=== PATIENT | female | born 1935 | race Caucasian/White ===

== ENCOUNTER → 2017-01-11 | Outpatient (REF) | payer MEDICARE, OTHER ==
[~2017-01-11] MED LIST: /GLIM4TA OR; ASCO25TA PO; AVAP150T OR; COLA100C PO; COLA100C2 OR; COZA50TA PO; FENO160T10 PO; FLON0.054; GLIM2TA PO; GLIM4TAB PO; GLUC1000 OR; GLUC1000 PO; I-CAPS PO; ICAP; JANU100T PO; KEFL250C6 PO; LIPI20TA PO; LOSA50TA20 PO; METF500T4 OR; NIAS500T2 OR; TRIC145T19 OR; VIT D 2000; VITA500046 PO; XARE20TA PO; januvia
[2017-01-11 13:13] LABS: ALBUMIN 4.5 GM/DL (3.2-5.2); ALBUMIN/GLOBULIN RATIO 1.13 (1.00-1.93); ALKALINE PHOSPHATASE 63 U/L (45-117); ALT/SGPT 37 U/L (12-78); ANION GAP 11 MEQ/L (8-16); AST/SGOT 41 U/L (15-37); BILIRUBIN,TOTAL 0.7 MG/DL (0.2-1.0); BLOOD UREA NITROGEN 13 MG/DL (7-18); CALCIUM LEVEL 9.4 MG/DL (8.8-10.2); CARBON DIOXIDE LEVEL 28 MEQ/L (21-32); CHLORIDE LEVEL 100 MEQ/L (98-107); CHOLESTEROL LEVEL 117 MG/DL (<200); FERRITIN 36 NG/ML (8-252); GLOMERULAR FILTRATION RATE > 60.0 (>32); GLUCOSE, FASTING 125 MG/DL (83-110); POTASSIUM SERUM 4.2 MEQ/L (3.5-5.1); SODIUM LEVEL 139 MEQ/L (136-145); TOTAL PROTEIN 8.5 GM/DL (6.4-8.2); TRIGLYCERIDES LEVEL 213 MG/DL (<150)
[2017-01-11 13:21] LABS: MEAN CORPUSCULAR HEMOGLOBIN 30.6 pg (27.0-33.0); MEAN CORPUSCULAR HGB CONC 33.3 g/dl (32.0-36.5); MEAN CORPUSCULAR VOLUME 91.7 fl (80.0-96.0); RED CELL DISTRIBUTION WIDTH 13.9 % (11.5-14.5); WHITE BLOOD COUNT 5.6 K/mm3 (4.0-10.0)
== END ==
LOC: M SFHCPLAZ 09:41
PROVIDERS: ATTEND Nurse Practitioner Family
DX: E53.8 Deficiency of other specified B group vitamins (principal); I10 Essential (primary) hypertension; D50.9 Iron deficiency anemia, unspecified; E11.9 Type 2 diabetes mellitus without complications; E78.2 Mixed hyperlipidemia; E55.9 Vitamin D deficiency, unspecified

== ENCOUNTER → 2017-07-18 | Outpatient (REF) | payer MEDICARE, OTHER ==
[~2017-07-18] MED LIST changes: -COLA100C PO; +COLA100C5 PO; +KEFL250C11 PO; -KEFL250C6 PO
[2017-07-18 13:57] LABS: ALBUMIN 3.9 GM/DL (3.2-5.2); ALBUMIN/GLOBULIN RATIO 1.08 (1.00-1.93); ALKALINE PHOSPHATASE 63 U/L (45-117); ALT/SGPT 38 U/L (12-78); ANION GAP 11 MEQ/L (8-16); AST/SGOT 42 U/L (15-37); BILIRUBIN,TOTAL 0.9 MG/DL (0.2-1.0); BLOOD UREA NITROGEN 16 MG/DL (7-18); CALCIUM LEVEL 9.4 MG/DL (8.8-10.2); CARBON DIOXIDE LEVEL 27 MEQ/L (21-32); CHLORIDE LEVEL 103 MEQ/L (98-107); GLOMERULAR FILTRATION RATE > 60.0 (>32); GLUCOSE, FASTING 157 MG/DL (83-110); POTASSIUM SERUM 4.6 MEQ/L (3.5-5.1); SODIUM LEVEL 141 MEQ/L (136-145); TOTAL PROTEIN 7.5 GM/DL (6.4-8.2)
== END ==
LOC: M SFHCPLAZ 08:44
PROVIDERS: ATTEND Nurse Practitioner Family
DX: E55.9 Vitamin D deficiency, unspecified (principal); I10 Essential (primary) hypertension; E11.9 Type 2 diabetes mellitus without complications

== ENCOUNTER → 2017-07-25 | Outpatient (REF) | payer MEDICARE, OTHER ==
[2017-07-25 13:10] LABS: MEAN CORPUSCULAR HEMOGLOBIN 31.1 pg (27.0-33.0); MEAN CORPUSCULAR HGB CONC 33.9 g/dl (32.0-36.5); MEAN CORPUSCULAR VOLUME 91.8 fl (80.0-96.0); RED CELL DISTRIBUTION WIDTH 13.8 % (11.5-14.5); WHITE BLOOD COUNT 7.1 10^3/uL (4.0-10.0)
[2017-07-25 13:14] LABS: PLATELET COUNT, AUTOMATED 96 10^3/uL (150-450)
[2017-08-08 13:12] LABS: IMMATURE PLATELET FRACTION % 7.9 % (0.0-9.6)
== END ==
LOC: M SFHCPLAZ 11:46
PROVIDERS: ATTEND Nurse Practitioner Family
DX: R31.0 Gross hematuria (principal); I10 Essential (primary) hypertension; E11.9 Type 2 diabetes mellitus without complications; F32.89 Other specified depressive episodes; E53.8 Deficiency of other specified B group vitamins; E78.2 Mixed hyperlipidemia; E55.9 Vitamin D deficiency, unspecified; D50.9 Iron deficiency anemia, unspecified; M15.9 Polyosteoarthritis, unspecified; I69.30 Unspecified sequelae of cerebral infarction; I48.0 Paroxysmal atrial fibrillation; Z79.4 Long term (current) use of insulin; Z79.899 Other long term (current) drug therapy
CPT/HCPCS: 81001; 82728; 85027; 85055; 87088; 87186; 96372; G0463; J3420

== ENCOUNTER → 2017-09-25 | Outpatient (REF) | payer MEDICARE, OTHER ==
[2017-09-25 13:36] LABS: BASO % 0.3 % (0.0-1.0); EOS # 0.1 10^3/uL (0.0-0.50); EOS % 1.7 % (0.0-3.0); IMMATURE GRANULOCYTE % 0.3 % (0-0); LYMPH # 1.4 10^3/uL (1.5-4.5); LYMPH % 21.8 % (24.0-44.0); MEAN CORPUSCULAR HEMOGLOBIN 30.9 pg (27.0-33.0); MEAN CORPUSCULAR HGB CONC 33.5 g/dl (32.0-36.5); MEAN CORPUSCULAR VOLUME 92.4 fl (80.0-96.0); MONO # 0.9 10^3/uL (0.0-0.8); NEUTROPHILS % 61.9 % (36.0-66.0); RED CELL DISTRIBUTION WIDTH 14.2 % (11.5-14.5); WHITE BLOOD COUNT 6.4 10^3/uL (4.0-10.0)
[2017-09-25 13:39] LABS: IMMATURE PLATELET FRACTION % 7.8 % (0.0-9.6); PLATELET COUNT, AUTOMATED 85 10^3/uL (150-450)
[2017-09-25 13:51] LABS: ANION GAP 10 MEQ/L (8-16); BLOOD UREA NITROGEN 10 MG/DL (7-18); CALCIUM LEVEL 9.3 MG/DL (8.8-10.2); CARBON DIOXIDE LEVEL 29 MEQ/L (21-32); CHLORIDE LEVEL 101 MEQ/L (98-107); CREATININE FOR GFR 0.67 MG/DL (0.55-1.02); GLOMERULAR FILTRATION RATE > 60.0 (>32); GLUCOSE, FASTING 168 MG/DL (83-110); POTASSIUM SERUM 4.2 MEQ/L (3.5-5.1); SODIUM LEVEL 140 MEQ/L (136-145)
== END ==
LOC: M SFHCPLAZ 10:33
PROVIDERS: ATTEND Nurse Practitioner Family
DX: J06.9 Acute upper respiratory infection, unspecified (principal); R35.0 Frequency of micturition
CPT/HCPCS: 80048; 81001; 85025; 85049; 85055; 87088; 87186; 96372; G0463; J3420

== ENCOUNTER → 2018-01-07 | Outpatient (REF) | payer MEDICARE, OTHER ==
[2018-01-07 12:08] LABS: ANION GAP 13 MEQ/L (8-16); BLOOD UREA NITROGEN 17 MG/DL (7-18); CALCIUM LEVEL 9.1 MG/DL (8.8-10.2); CARBON DIOXIDE LEVEL 25 MEQ/L (21-32); CHLORIDE LEVEL 102 MEQ/L (98-107); CREATININE FOR GFR 0.81 MG/DL (0.55-1.30); GLOMERULAR FILTRATION RATE > 60.0 (>32); GLUCOSE, FASTING 161 MG/DL (70-100); POTASSIUM SERUM 4.4 MEQ/L (3.5-5.1); SODIUM LEVEL 140 MEQ/L (136-145)
[2018-01-07 12:09] LABS: ALBUMIN 3.9 GM/DL (3.2-5.2); ALBUMIN/GLOBULIN RATIO 1.03 (1.00-1.93); ALKALINE PHOSPHATASE 62 U/L (45-117); ALT/SGPT 31 U/L (12-78); AST/SGOT 31 U/L (7-37); BILIRUBIN,TOTAL 0.7 MG/DL (0.2-1.0); CHOLESTEROL LEVEL 102 MG/DL (<200); CHOLESTEROL RISK RATIO 1.924 (<5); HDL CHOLESTEROL 53 MG/DL (>40); LDL CHOLESTEROL 17.2 MG/DL (<100); NON-HDL-C 49 MG/DL; TOTAL PROTEIN 7.7 GM/DL (6.4-8.2); TRIGLYCERIDES LEVEL 159 MG/DL (<150)
[2018-01-07 12:21] LABS: ESTIMATED AVERAGE GLUCOSE 148 MG/DL (60-110); HEMOGLOBIN A1c 6.8 %
[2018-01-07 12:46] LABS: TOTAL 25(OH) VITAMIN D 35.8 NG/ML (30.0-100.0)
[2018-01-07 12:59] LABS: MALB URINE SIEMENS 70.2 MG/L; MAU/CREAT RATIO 93.6 MCG/MG (0.0-30.0)
== END ==
LOC: M SFHCPLAZ 08:48
DX: E11.9 Type 2 diabetes mellitus without complications (principal); E78.2 Mixed hyperlipidemia; E55.9 Vitamin D deficiency, unspecified
CPT/HCPCS: 80053

== ENCOUNTER → 2018-03-05 | Outpatient (REF) | payer MEDICARE, OTHER | LOC: M SFHCPLAZ 15:42 | DX: R31.9 Hematuria, unspecified (principal) | CPT/HCPCS: 87088; 87186 ==

== ENCOUNTER → 2018-05-14 | Outpatient (REF) | payer MEDICARE, BC ==
[2018-05-14 11:58] LABS: HEMATOCRIT 37.2 % (36.0-47.0); HEMOGLOBIN 12.6 g/dl (12.0-15.5); MEAN CORPUSCULAR HEMOGLOBIN 31.2 pg (27.0-33.0); MEAN CORPUSCULAR HGB CONC 33.9 g/dl (32.0-36.5); MEAN CORPUSCULAR VOLUME 92.1 fl (80.0-96.0); RED BLOOD COUNT 4.04 10^6/uL (4.00-5.40); RED CELL DISTRIBUTION WIDTH 14.2 % (11.5-14.5); WHITE BLOOD COUNT 4.6 10^3/uL (4.0-10.0)
[2018-05-14 12:00] LABS: PLATELET COUNT, AUTOMATED 86 10^3/uL (150-450)
[2018-05-14 12:01] LABS: IMMATURE PLATELET FRACTION % 7.7 % (0.0-9.6)
[2018-05-14 12:24] LABS: ALBUMIN 3.8 GM/DL (3.2-5.2); ALBUMIN/GLOBULIN RATIO 0.97 (1.00-1.93); ALKALINE PHOSPHATASE 59 U/L (45-117); ALT/SGPT 33 U/L (12-78); ANION GAP 9 MEQ/L (8-16); AST/SGOT 38 U/L (7-37); BILIRUBIN,TOTAL 0.7 MG/DL (0.2-1.0); BLOOD UREA NITROGEN 15 MG/DL (7-18); CALCIUM LEVEL 8.9 MG/DL (8.8-10.2); CARBON DIOXIDE LEVEL 26 MEQ/L (21-32); CHLORIDE LEVEL 105 MEQ/L (98-107); CHOLESTEROL LEVEL 96 MG/DL (<200); CHOLESTEROL RISK RATIO 2.042 (<5); CREATININE FOR GFR 0.73 MG/DL (0.55-1.30); GLOMERULAR FILTRATION RATE > 60.0 (>32); GLUCOSE, FASTING 189 MG/DL (70-100); HDL CHOLESTEROL 47 MG/DL (>40); LDL CHOLESTEROL 19.4 MG/DL (<100); NON-HDL-C 49 MG/DL; POTASSIUM SERUM 4.6 MEQ/L (3.5-5.1); SODIUM LEVEL 140 MEQ/L (136-145); TOTAL PROTEIN 7.7 GM/DL (6.4-8.2); TRIGLYCERIDES LEVEL 148 MG/DL (<150)
[2018-05-14 12:59] LABS: FOLATE 12.5 NG/ML; VITAMIN B12 LEVEL 495 PG/ML
[2018-05-14 13:26] LABS: ESTIMATED AVERAGE GLUCOSE 160 MG/DL (60-110); HEMOGLOBIN A1c 7.2 %
[2018-05-14 18:05] LABS: CREATININE, URINE 70.9 MG/DL; MALB URINE SIEMENS 73.9 MG/L; MAU/CREAT RATIO 104.2 MCG/MG (0.0-30.0)
== END ==
LOC: M SFHCPLAZ 09:36
DX: E53.8 Deficiency of other specified B group vitamins (principal); E11.9 Type 2 diabetes mellitus without complications; E78.2 Mixed hyperlipidemia
CPT/HCPCS: 82746

== ENCOUNTER → 2018-06-12 | Outpatient (REF) | payer MEDICARE, OTHER ==
[2018-06-12 12:03] LABS: HEMATOCRIT 41.8 % (36.0-47.0); HEMOGLOBIN 13.7 g/dl (12.0-15.5); MEAN CORPUSCULAR HEMOGLOBIN 30.8 pg (27.0-33.0); MEAN CORPUSCULAR HGB CONC 32.8 g/dl (32.0-36.5); MEAN CORPUSCULAR VOLUME 93.9 fl (80.0-96.0); RED BLOOD COUNT 4.45 10^6/uL (4.00-5.40); RED CELL DISTRIBUTION WIDTH 13.7 % (11.5-14.5); WHITE BLOOD COUNT 4.9 10^3/uL (4.0-10.0)
[2018-06-12 12:10] LABS: PLATELET COUNT, AUTOMATED 75 10^3/uL (150-450)
[2018-06-12 13:31] LABS: IMMATURE PLATELET FRACTION % 6.9 % (0.0-9.6)
== END ==
LOC: M SFHCPLAZ 09:39
DX: D69.6 Thrombocytopenia, unspecified (principal)
CPT/HCPCS: 85049

== ENCOUNTER → 2018-08-13 | Outpatient (REF) | payer MEDICARE, OTHER ==
[2018-08-13 11:45] LABS: HEMATOCRIT 42.1 % (36.0-47.0); HEMOGLOBIN 13.7 g/dl (12.0-15.5); MEAN CORPUSCULAR HEMOGLOBIN 30.2 pg (27.0-33.0); MEAN CORPUSCULAR HGB CONC 32.5 g/dl (32.0-36.5); MEAN CORPUSCULAR VOLUME 92.9 fl (80.0-96.0); RED BLOOD COUNT 4.53 10^6/uL (4.00-5.40); RED CELL DISTRIBUTION WIDTH 14.2 % (11.5-14.5); WHITE BLOOD COUNT 4.7 10^3/uL (4.0-10.0)
[2018-08-13 11:48] LABS: PLATELET COUNT, AUTOMATED 78 10^3/uL (150-450)
[2018-08-13 11:50] LABS: IMMATURE PLATELET FRACTION % 8.5 % (0.0-9.6)
[2018-08-13 12:03] LABS: ESTIMATED AVERAGE GLUCOSE 148 MG/DL (60-110); HEMOGLOBIN A1c 6.8 %
[2018-08-13 12:10] LABS: ALBUMIN 3.9 GM/DL (3.2-5.2); ALBUMIN/GLOBULIN RATIO 1.05 (1.00-1.93); ALKALINE PHOSPHATASE 56 U/L (45-117); ALT/SGPT 29 U/L (12-78); ANION GAP 11 MEQ/L (8-16); AST/SGOT 36 U/L (7-37); BLOOD UREA NITROGEN 14 MG/DL (7-18); CALCIUM LEVEL 8.9 MG/DL (8.8-10.2); CARBON DIOXIDE LEVEL 26 MEQ/L (21-32); CHLORIDE LEVEL 104 MEQ/L (98-107); CREATININE FOR GFR 0.71 MG/DL (0.55-1.30); GLOMERULAR FILTRATION RATE > 60.0 (>32); GLUCOSE, FASTING 148 MG/DL (70-100); POTASSIUM SERUM 4.8 MEQ/L (3.5-5.1); SODIUM LEVEL 141 MEQ/L (136-145); TOTAL PROTEIN 7.6 GM/DL (6.4-8.2)
== END ==
LOC: M SFHCPLAZ 09:49
DX: D69.6 Thrombocytopenia, unspecified (principal); E11.9 Type 2 diabetes mellitus without complications
CPT/HCPCS: 80053

== ENCOUNTER → 2019-02-20 | Outpatient (REF) | payer MEDICARE, OTHER ==
[~2019-02-20] MED LIST changes: -/GLIM4TA OR; +AMAR1TAB6 OR; -ASCO25TA PO; +ATOR1TAB19 PO; +FERR325T3 PO; -GLIM2TA PO; +GLIM2TAB29 PO; +ICAPTAB PO; +LEVE1INJ5 SUBQ; -LOSA50TA20 PO; +LOSA50TA88 PO; +SERT-141 PO; +VITA100066 PO; +VITA1TAB23 PO
[2019-02-20 14:35] LABS: HEMATOCRIT 41.7 % (36.0-47.0); HEMOGLOBIN 13.5 g/dl (12.0-15.5); MEAN CORPUSCULAR HGB CONC 32.4 g/dl (32.0-36.5); MEAN CORPUSCULAR VOLUME 95.9 fl (80.0-96.0); RED BLOOD COUNT 4.35 10^6/uL (4.00-5.40); WHITE BLOOD COUNT 4.3 10^3/uL (4.0-10.0)
[2019-02-20 14:41] LABS: ALBUMIN 3.8 GM/DL (3.2-5.2); ALT/SGPT 28 U/L (12-78); BILIRUBIN,TOTAL 0.8 MG/DL (0.2-1.0); BLOOD UREA NITROGEN 19 MG/DL (7-18); CALCIUM LEVEL 9.1 MG/DL (8.8-10.2); CARBON DIOXIDE LEVEL 27 MEQ/L (21-32); CHLORIDE LEVEL 105 MEQ/L (98-107); CREATININE FOR GFR 0.72 MG/DL (0.55-1.30); GLOMERULAR FILTRATION RATE > 60.0 (>32); GLUCOSE, FASTING 131 MG/DL (70-100); POTASSIUM SERUM 4.5 MEQ/L (3.5-5.1); SODIUM LEVEL 140 MEQ/L (136-145); TOTAL PROTEIN 7.7 GM/DL (6.4-8.2)
[2019-02-20 14:48] LABS: CREATININE, URINE 64.1 MG/DL; MALB URINE SIEMENS 70.4 MG/L; MAU/CREAT RATIO 109.8 MCG/MG (0.0-30.0); TOTAL 25(OH) VITAMIN D 49.9 NG/ML (30.0-100.0); VITAMIN B12 LEVEL 373 PG/ML
[2019-02-20 14:51] LABS: HEMOGLOBIN A1c 6.5 %
[2019-02-20 15:35] LABS: PLATELET COUNT, AUTOMATED 69 10^3/uL (150-450)
== END ==
LOC: M SFHCPLAZ 08:37
PROVIDERS: ATTEND Nurse Practitioner Family
DX: I48.0 Paroxysmal atrial fibrillation (principal); E11.9 Type 2 diabetes mellitus without complications; M15.9 Polyosteoarthritis, unspecified; E53.8 Deficiency of other specified B group vitamins

== ENCOUNTER 2019-05-15 08:43 | Inpatient (IN) | payer MEDICARE, BC, OTHER ==
[~2019-05-15] VITALS: Ht 167.6 cm; Wt 73.7 kg
[~2019-05-15 08:43] MED LIST changes: -GLIM4TAB PO; +GLIM4TAB5 PO; +LEVE1INJ5 SQ; -LEVE1INJ5 SUBQ
[2019-05-15] MEDS ORDERED: NS 1,000 ML IV SCH ×2 (09:18→12:49)
[2019-05-15] MEDS ORDERED: IPRATROPIUM 0.5MG/ALBUTEROL 2.5MG INH SOL UD 3ML (DUONEB)(J7620) NEB ONE (09:30)
[2019-05-15 10:00] LABS: BASO % 0.2 % (0.0-1.0); EOS % 0.4 % (0.0-3.0); HEMATOCRIT 18.6 % (36.0-47.0); LYMPH # 1.2 10^3/uL (1.5-4.5); LYMPH % 11.4 % (24.0-44.0); MEAN CORPUSCULAR HGB CONC 33.3 g/dl (32.0-36.5); MEAN CORPUSCULAR VOLUME 95.9 fl (80.0-96.0); MONO # 0.8 10^3/uL (0.0-0.8); MONO % 7.3 % (0.0-5.0); NEUTROPHILS # 8.7 10^3/uL (1.8-7.7); NEUTROPHILS % 79.4 % (36.0-66.0); PLATELET COUNT, AUTOMATED 144 10^3/uL (150-450); RED BLOOD COUNT 1.94 10^6/uL (4.00-5.40); WHITE BLOOD COUNT 10.9 10^3/uL (4.0-10.0)
[2019-05-15 10:02] LABS: HEMOGLOBIN 6.2 g/dl (12.0-15.5)
[2019-05-15 10:08] LABS: INR 1.74; PROTHROMBIN TIME 20.1 SECONDS (11.8-14.0)
[2019-05-15 10:39] LABS: ALBUMIN 2.8 GM/DL (3.2-5.2); ALT/SGPT 15 U/L (12-78); BILIRUBIN,DIRECT 0.3 MG/DL (0.0-0.2); BILIRUBIN,TOTAL 0.7 MG/DL (0.2-1.0); BLOOD UREA NITROGEN 56 MG/DL (7-18); CALCIUM LEVEL 8.6 MG/DL (8.8-10.2); CARBON DIOXIDE LEVEL 22 MEQ/L (21-32); CHLORIDE LEVEL 104 MEQ/L (98-107); CK-MB VALUE MASS 1.8 NG/ML (<3.6); CPK CREATINE PHOSPHOKINASE 39 U/L (26-192); GLOMERULAR FILTRATION RATE > 60.0 (>32); GLUCOSE, FASTING 230 MG/DL (70-100); MB/CK RELATIVE INDEX 4.62 (< OR =4); NT-PRO BNP 152 PG/ML (<450); POTASSIUM SERUM 4.3 MEQ/L (3.5-5.1); SODIUM LEVEL 136 MEQ/L (136-145); THYROXINE (T4) 8.9 UG/DL (4.5-12.0); TOTAL PROTEIN 6.4 GM/DL (6.4-8.2); TROPONIN I < 0.02 NG/ML (< 0.10)
--- NOTE | 2019-05-15 10:46 | REP ---
CHEST X-RAY: Two views. HISTORY: Dyspnea and cough. COMPARISON STUDY: April 17, 2014. FINDINGS: A bipolar pacemaker is again seen in place. Heart size is normal. Lungs are symmetrically aerated. Pleural angles are sharp. There is fissural thickening in the minor fissure on the right mild in degree. No free pleural effusion is seen. There are degenerative changes in the thoracic spine. IMPRESSION: No infiltrate seen. Pacemaker in place. The heart size is normal. Electronically Signed by Jelani Martinez MD 05/15/2019 07:19 P
[2019-05-15] MEDS: PANTOPRAZOLE SODIUM 40 MG in D5W 50 ML IV SCH ×3 (12:35→20:58)
[2019-05-15] MEDS ORDERED: METF10004 PO (12:55)
[2019-05-15] MEDS ORDERED: ACET25TA12 PO (12:57)
[2019-05-15] MEDS ORDERED: CYAN1000VL IM (12:57)
[2019-05-15] MEDS ORDERED: FUROSEMIDE 20 MG/2 ML VIAL (J1940) IV ONE (13:00)
[2019-05-15] MEDS ORDERED: DEXTROSE 50% 50 ML SYRINGE IV PRN (13:00)
[2019-05-15] MEDS ORDERED: GLUCAGON FOR INJ 1 MG VIAL (J1610) SC PRN (13:00)
[2019-05-15] MEDS ORDERED: GLUCOSE 4 GM CHEW TABLET PO PRN (13:00)
[2019-05-15] MEDS ORDERED: PANTOPRAZOLE 40MG INJ (PROTONIX) (C9113) IV ONE (13:00)
[2019-05-15 15:50] VITALS: BP 150/65
--- NOTE | 2019-05-15 15:59 | HPEPDOC ---
[facility] Medical History & Physical Date of Admission May 15, 2019 Date of Service: May 15, 2019 Attending Physician: NATANAEL SWANSON MD History and Physical CHIEF COMPLAINT: Generalized weakness and fatigue HISTORY OF PRESENT ILLNESS: An 83 year old white female with a past medical history of hypertension, atrial fibrillation, dyslipidemia, type 2 diabetes, iron deficiency anemia, stroke, thrombocytopenia, carcinoid tumor of bowel, diverticulitis, and sick sinus syndrome presented to the Emergency department with generalized weakness and fatigue. The patient is accompanied by her two daughters who aid in giving a thorough history. Patient states that she began experiencing upper respiratory symptoms on 05/12/19. Her symptoms consisted of productive cough, post nasal drainage, generalized fatigue, vomiting, nausea, dizziness, and weakness. She denies having a fever or chills during this time. She presented to an urgent care clinic on 05/13/19 and was told that her lung bar were clear; they instructed her to buy cepacol cough drops to help with her cough. The patient progressively felt more fatigue and weakness over the next two days to the point where she felt she needed to visit the Emergency department. Her daughters stated that she began looking severely pale two days ago and has lost 6 lbs since 05/12/19. Her daughters also stated that she is usually a very active 83 year old and has been considerably less active over the last four days. The patient states that she has not had much of an appetite but has been drinking fluids on a regular basis. She denies bright red blood per re ctum; her stool is usually dark and she attributes this to taking an iron supplement. She denies fevers, chills, hematuria, hemoptysis, hematemesis, or syncope. PAST MEDICAL HISTORY: 1. Hypertension 2. Atrial fibrillation on anticoagulation 3. Dyslipidemia 4. Diabetes type 2 5. Iron deficiency anemia 6. Sick sinus syndrome s/p pacemaker 7. Stroke 8. thrombocytopenia 9. Carcinoid tumor of bowel 10. 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 Cholecystectomy 2. Bladder Repair 3. Carcinoid tumor of bowel 4. Cataract surgery 5. Pacemaker implantation 6. Hysterectomy 7. Bowel resection 8. Hernia repair 9.Ovarian cyst removal SOCIAL HISTORY: Marital status: not known Resides in: [place] Children: three daughters Employment: retired Tobacco use: admits to past use ETOH: denies use Illicit drug use: denies use FAMILY HISTORY: Hypertension and diabetes Unexpected deaths due to medical reasons: not known ALLERGIES: Please see below. HOME MEDICATIONS: Please see below. PHYSICAL EXAMINATION: VITAL SIGNS: See below GENERAL APPEARANCE: Patient is lying in bed. She appears tired and is pale in coloration. HEENT: Conjunctival pallor noted. Mucous membranes pale and dry. CARDIOVASCULAR: Regular rate and rhythm. A systolic murmur is heard in the left 2nd ICS. LUNGS: equal air intake b/l. Patient has slight basilar crackles heard in lower lung bar. ABDOMEN: soft, non tender, normal bowel sounds EXTREMITIES: No edema, rashes, or cyanosis. Capillary refill 5 seconds, pulses 2+ throughout NEUROLOGICAL: no focal deficits PSYCHIATRIC: normal affect LABORATORY DATA: See below. IMAGING: Chest X-ray 05/15/19: A bipolar pacemaker is again seen in place. Heart size is normal. Lungs are symmetrically aerated. Pleural angles are sharp. There is fissural thickening in the minor fissure on the right mild in degree. No free pleural effusion is seen. There are degenerative changes in the thoracic spine. No infiltrate seen. Pacemaker in place. The heart size is normal. MICROBIOLOGY: Please see below. ASSESSMENT: An 83 year old white female with a past medical history of hypertension, atrial fibrillation, dyslipidemia, diabetes, iron deficiency anemia, stroke, thrombocytopenia, carcinoid tumor of bowel, diverticulitis, and sick sinus syndrome. PLAN: 1. Acute Blood loss anemia due to GIB. -Patient on Clear liquid diet -EGD scheduled for tomorrow -Patient received two units of blood -Monitor H&H every 6 hours and transfuse as needed -1 unit of lasix given in between blood transfusions -Consulted GI, we appreciate their input -Holding Xarelto -Begin pantoprazole -Guaiac test positive 2. Mild lactic acidosis -due to anemia and tissue hypoperfusion -Initial lactic acidosis measured 3.8. Four hour followup measurement was 2.9. -c/w IV fluids and monitor for fluid overload 3. Diabetes -hold all oral medications and home insulin -ISS 4. Hyperlipidemia -Holding atorvastatin -restart atorvastatin when able to take PO medications 5. Afib with h/o sick sinus syndrome with pacemaker in place -holding xarelto 6. Hypertension -holding losartan -restart when able to take PO medications 7. DVT prophylaxis -TEDs and sequentials Vital Signs Vital Signs Date Time Temp Pulse Resp B/P (MAP) Pulse Ox O2 Delivery O2 Flow Rate FiO2 05/15/19 15:15 110 133/62 (85) 97 05/15/19 13:57 99.3 17 05/15/19 08:43 Room Air Laboratory Data Labs 24H Laboratory Tests 2 05/15/19 09:42: Prothrombin Time 20.1H, Prothromb Time International Ratio 1.74 05/15/19 09:43: Immature Granulocyte % (Auto) 1.3, White Blood Count 10.9H, Red Blood Count 1.94L, Hemoglobin 6.2*L, Hematocrit 18.6L, Mean Corpuscular Volume 95.9, Mean Corpuscular Hemoglobin 32.0, Mean Corpuscular Hemoglobin Concent 33.3, Red Cell Distribution Width 14.6H, Platelet Count 144L, Neutrophils (%) (Auto) 79.4H, Ly mphocytes (%) (Auto) 11.4L, Monocytes (%) (Auto) 7.3H, Eosinophils (%) (Auto) 0.4, Basophils (%) (Auto) 0.2, Neutrophils # (Auto) 8.7H, Lymphocytes # (Auto) 1.2L, Monocytes # (Auto) 0.8, Eosinophils # (Auto) 0.0, Basophils # (Auto) 0.0, Nucleated Red Blood Cells % (auto) 0.4H, Anion Gap 10, Glomerular Filtration Rate > 60.0, Lactic Acid Level 3.8*H, Calcium Level 8.6L, Aspartate Amino Transf (AST/SGOT) 12, Alanine Aminotransferase (ALT/SGPT) 15, Alkaline Phosphatase 47, Total Bilirubin 0.7, Direct Bilirubin 0.3H, Total Creatine Kinase 39, Creatine Kinase MB 1.8, Creatine Kinase MB Relative Index 4.62H, Troponin I < 0.02, GM-[id number]-Type Natriuretic Peptide 152, Total Protein 6.4, Albumin 2.8L, Albumin/Globulin Ratio 0.78L, Thyroid Stimulating Hormone (TSH) 1.840, Thyroxine (T4) 8.9 05/15/19 14:12: Lactic Acid Followup at 4 Hours 2.9*H CBC/BMP Laboratory Tests 05/15/19 09:43 Red Blood Count 1.94 L, Mean Corpuscular Volume 95.9, Mean Corpuscular He moglobin 32.0, Mean Corpuscular Hemoglobin Concent 33.3, Red Cell Distribution Width 14.6 H, Neutrophils (%) (Auto) 79.4 H, Lymphocytes (%) (Auto) 11.4 L, Monocytes (%) (Auto) 7.3 H, Eosinophils (%) (Auto) 0.4, Basophils (%) (Auto) 0.2, Neutrophils # (Auto) 8.7 H, Lymphocytes # (Auto) 1.2 L, Monocytes # (Auto) 0.8, Eosinophils # (Auto) 0.0, Basophils # (Auto) 0.0 Home Medications Scheduled Acetaminophen/Diphenhydramine (Acetaminophen Pm Caplet) 1 Each Tablet, 2 TAB PO QHS Atorvastatin Calcium (Atorvastatin Calcium) 10 Mg Tab, 10 MG PO QHS Cholecalciferol (Vitamin D3) (Vitamin D3) 1,000 Unit Tab, 5,000 UNITS PO DAILY Cyanocobalamin (Cyanocobalamin Injection) 1,000 Mcg/1 Ml Vial, 1,000 MCG IM QMONTH Ferrous Sulfate (Ferrous Sulfate) 325 Mg Tab, 325 MG PO BID Insulin Detemir (Levemir Flextouch) 100 Unit/Ml Inj, 20 UNIT SQ QHS Losartan Potassium (Cozaar) 50 Mg Tab, 50 MG PO QHS Metformin HCl (Glucophage) 1,000 Mg Tab, 1,000 MG PO DAILY Metformin HCl (Metformin HCl) 1,000 Mg Tablet, 1,500 MG PO QHS Rivaroxaban (Xarelto) 20 Mg Tab, 20 MG PO DAILY WITH FOOD Sertraline Hcl (Sertraline HCl) 50 Mg Tab, 50 MG PO DAILY Sitagliptin Phosphate (Januvia) 100 Mg Tab, 100 MG PO QHS Vit A/Vit C/Vit E/Zinc/Copper (Icaps Areds Formula Dr Tablet) 1 Tab Tab, 1 TAB PO QHS Allergies Coded Allergies: aspirin (Verified Allergy, Intermediate, Hives, 02/24/19) iodine (Verified Allergy, Intermediate, Hives, 02/24/19) pioglitazone (Verified Allergy, Intermediate, Edema, 02/24/19) TAPE (Unverified Allergy, Unknown, 04/07/10) A-FIB/CHADSVASC A-FIB History Current/History of A-Fib/PAF?: Yes Current PO Anticoag Therapy: No Treatment Treatment ordered: Holding Other (Holding xarelto secondary to GI bleed) Other anticoagulant ordered: TEDs and SCDs Attending Note Attending Note I performed a history and physical examination and discussed the management with the resident and medical student. I reviewed the medical student's note and agree with the documented findings and plan of care with following addendum/ amendments. Acute blood loss anemia due to looks like upper GIB. will transfuse and monitor HH. GI consulted , EGD tomorrow Lactacidosis: Possible due to severe anemia Symptomatic anemia: Need to watch out for high output CHF due to severe anemia with now getting rapid transfusions. Will give Lasix in between transfusions. will give full liquid diet today as not getting EGD tonight. NURIA STRAUSS OMS-3 May 15, 2019 15:59 NATANAEL SWANSON MD May 15, 2019 19:18
--- NOTE | 2019-05-15 16:38 | CR.PDOC ---
General Date of Consultation: May 15, 2019 Referring Provider: NATANAEL SWANSON MD Consultation REASON FOR CONSULTATION/CHIEF COMPLAINT: Symptomatic anemia HISTORY OF PRESENT ILLNESS: Faustina Lutz is an 83 Year old female patient with history of A-fib (on Xarelto) with pacemaker ( last evaluation in April 2019, follows with ), history of segmental colon resection for rectovesical fistula and rectal carcinoid tumor s/p resection, presents with 3-4 days weakness, fatigue, shortness of breath, nausea and dark stools. The patient first noticed her weakness and fatigue about 3 days ago when she was sleeping more and unable to get out of bed and ambulate around her house. Her daughter, who lives with her, states that she started to complain of dizziness when sitting upright and standing a few days ago. She has also progressively appeared more pale. In addition, she complains of some diarrhea and "dark" stools for 2-3 days, last loose black stool 2 days ago. Patient which she attributes to her recently initiated oral iron supplementation. She has not noticed any bright red blood per rectum, any hematemesis, nor any recent weight loss. ALLERGIES: Please see below. HOME MEDICATIONS: Please see below. PAST MEDICAL HISTORY: Type II DM - on insulin. Arthritis. Hypertension. vitamin D deficiency. Rectal cancer. Hyperlipidemia. Bilateral hearing deficit - wears hearing aids. A Fib 03/2014 - [facility]. Vitamin B12 deficiency 02/2015 - started B12 injections with improvement. 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 PAST SURGICAL HISTORY: cholecystectomy - cataracts ovarian cyst hysterectomy - umbilical hernia repair - Dr Pratt 08/03 colonoscopy/ BE - Dr Ford 2005,06-08 bilat retrograde pyelogram - Dr. Levin 09/29/10 colon resection/ Left ureteral stent for bladder/rectal fistula repair 11/24/10 transanalendosopy anal tumor 08-08 rectal carcinoid tumor - Dr Connelly 08/25/11 pacemaker A fib 04-16-14 FAMILY HISTORY: Noncontributory SOCIAL HISTORY: Former smoker, lives in [place] with daughter, denies EtOH REVIEW OF SYSTEMS: CONSTITUTIONAL: Overall feels tired, weak, dizzy HEENT: No ear discharge/pain, no dysphagia CARDIOVASCULAR: No chest pain, no palpitations, no leg swelling RESPIRATORY: No shortness of breath, no wheezing, no cough GENITOURINARY: No hematuria, no burning during urination MUSCULOSKELETAL: No joint pain GASTROINTESTINAL: as stated above SKIN: no rash NEUROLOGICAL: No loss of sensation PSYCHIATRIC: normal mood/affect ENDOCRINE: no hot/cold intolerance HEMATOLOGIC/LYMPHATIC: no new bruising/lumps/bumps PHYSICAL EXAMINATION: VITAL SIGNS: Please see below. GENERAL APPEARANCE: patient is laying in bed, somewhat frail and very pale, appears stated age, no acute distress, calm, conversive HEENT: No scleral icterus. normal oropharynx. no enlarged cervical lymph nodes RESPIRATORY: clear to auscultation bilaterally without any adventitious breath sounds appreciated CARDIOVASCULAR: irregularly irregular rhythm without murmurs/rubs/gallops, pacemaker is palpated in upper left chest wall ABDOMEN: soft, nontender to palpation, no masses or organomegaly, + bowel sounds EXTREMITIES: no pedal edema, pulses palpable NEUROLOGICAL: CN 2-12 intact without any focal deficits PSYCHIATRIC: normal mood/affect LABORATORY DATA: Please see below. Impression: -- Symptomatic anemia with symptoms of diarrheal dark stools, 2 days ago, with Hgb at 6.2 and positive fecal occult blood test, in setting of anticoagulation use -- DDx-- likely upper GI bleed from PUD vs AVMs vs Gastritis/ esophagitis vs less likely right colonic/ lower GI bleeding from AVMs, Polyps. -- Chronic thrombocytopenia -- previously evaluated by Hematology -- suspect possible MDS vs ITP. however her platelets are normal on this admission. Recommendations: -- Transfuse slowly to heamoglobin around 8 gm/dL. -- Give IV PPI for now. -- As no overt active bleeding at this time, will plan for EGD after adequate resuscitation and holding xarelto for atleast 48 hours. -- Tentative plan for EGD tomorrow. Patient and her family (daughter) are educated about the procedure, indications, risks, benefits and alternatives. Patient verablized understanding and gave informed consent for the procedures. -- Can have full liquid diet until midnight -- NPO for procedure after midnight. -- Pain management as needed -- Hold Xarelto for now, use SCD and KENNETH hose Plan of care discussed with patient and primary team. All questions answered. Patient agreed with above plan. Laboratory Data CBC/BMP Laboratory Tests 05/15/19 09:43 Allergies Coded Allergies: aspirin (Verified Allergy, Intermediate, Hives, 4/29/19) iodine (Verified Allergy, Intermediate, Hives, 02/24/19) pioglitazone (Verified Allergy, Intermediate, Edema, 02/24/19) TAPE (Unverified Allergy, Unknown, 04/07/10) Home Medications Scheduled Acetaminophen/Diphenhydramine (Acetaminophen Pm Caplet) 1 Each Tablet, 2 TAB PO QHS, (Reported) Atorvastatin Calcium (Atorvastatin Calcium) 10 Mg Tab, 10 MG PO QHS, (Reported) Cholecalciferol (Vitamin D3) (Vitamin D3) 1,000 Unit Tab, 5,000 UNITS PO DAILY, (Reported) Cyanocobalamin (Cyanocobalamin Injection) 1,000 Mcg/1 Ml Vial, 1,000 MCG IM QMONTH, (Reported) Ferrous Sulfate (Ferrous Sulfate) 325 Mg Tab, 325 MG PO BID, (Reported) Insulin Detemir (Levemir Flextouch) 100 Unit/Ml Inj, 20 UNIT SQ QHS, (Reported) Losartan Potassium (Cozaar) 50 Mg Tab, 50 MG PO QHS, (Reported) Metformin HCl (Glucophage) 1,000 Mg Tab, 1,000 MG PO DAILY, (Reported) Metformin HCl (Metformin HCl) 1,000 Mg Tablet, 1,500 MG PO QHS, (Reported) Rivaroxaban (Xarelto) 20 Mg Tab, 20 MG PO DAILY, (Reported) WITH FOOD Sertraline Hcl (Sertraline HCl) 50 Mg Tab, 50 MG PO DAILY, (Reported) Sitagliptin Phosphate (Januvia) 100 Mg Tab, 100 MG PO QHS, (Reported) Vit A/Vit C/Vit E/Zinc/Copper (Icaps Areds Formula Dr Tablet) 1 Tab Tab, 1 TAB PO QHS, (Reported) HARVINDER SOLORIO MD May 15, 2019 13:57 FRANKLYN PARMAR MD May 15, 2019 16:38
[2019-05-15 19:11] VITALS: BP 117/56
[2019-05-15 20:00] VITALS: BP 111/53
[2019-05-15 20:45] LABS: BASO % 0.2 % (0.0-1.0); EOS % 0.2 % (0.0-3.0); HEMATOCRIT 22.1 % (36.0-47.0); HEMOGLOBIN 7.4 g/dl (12.0-15.5); LYMPH # 1.5 10^3/uL (1.5-4.5); LYMPH % 11.7 % (24.0-44.0); MEAN CORPUSCULAR HEMOGLOBIN 31.2 pg (27.0-33.0); MEAN CORPUSCULAR HGB CONC 33.5 g/dl (32.0-36.5); MEAN CORPUSCULAR VOLUME 93.2 fl (80.0-96.0); MONO % 7.6 % (0.0-5.0); NEUTROPHILS # 10.2 10^3/uL (1.8-7.7); NEUTROPHILS % 78.7 % (36.0-66.0); PLATELET COUNT, AUTOMATED 116 10^3/uL (150-450); RED BLOOD COUNT 2.37 10^6/uL (4.00-5.40); WHITE BLOOD COUNT 12.9 10^3/uL (4.0-10.0)
[2019-05-15] MEDS: HumaLOG INSULIN (NovoLOG) PER UNIT SC SCH (20:58)
[2019-05-15 23:11] LABS: BASO % 0.3 % (0.0-1.0); EOS % 0.3 % (0.0-3.0); HEMATOCRIT 20.6 % (36.0-47.0); LYMPH # 2.6 10^3/uL (1.5-4.5); LYMPH % 18.7 % (24.0-44.0); MEAN CORPUSCULAR HEMOGLOBIN 31.1 pg (27.0-33.0); MEAN CORPUSCULAR VOLUME 91.6 fl (80.0-96.0); MONO # 1.6 10^3/uL (0.0-0.8); MONO % 11.8 % (0.0-5.0); NEUTROPHILS # 9.3 10^3/uL (1.8-7.7); PLATELET COUNT, AUTOMATED 122 10^3/uL (150-450); RED BLOOD COUNT 2.25 10^6/uL (4.00-5.40); WHITE BLOOD COUNT 13.9 10^3/uL (4.0-10.0)
[2019-05-15] MEDS ORDERED: FUROSEMIDE 40 MG/4 ML VIAL (J1940) IV SCH (23:30)
[2019-05-15 23:59] VITALS: BP 121/60
[2019-05-16] VITALS (13 sets, daily range): BP systolic 111–145; BP diastolic 55–80
[2019-05-16] MEDS: PANTOPRAZOLE SODIUM 40 MG in D5W 50 ML IV SCH ×3 (01:43→12:07)
--- NOTE | 2019-05-16 05:33 | ECGEPIP ---
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
[2019-05-16 06:26] LABS: BASO % 0.2 % (0.0-1.0); EOS # 0.2 10^3/uL (0.0-0.50); EOS % 1.4 % (0.0-3.0); HEMATOCRIT 27.2 % (36.0-47.0); LYMPH # 1.7 10^3/uL (1.5-4.5); LYMPH % 16.1 % (24.0-44.0); MEAN CORPUSCULAR HEMOGLOBIN 30.2 pg (27.0-33.0); MEAN CORPUSCULAR HGB CONC 34.9 g/dl (32.0-36.5); MEAN CORPUSCULAR VOLUME 86.3 fl (80.0-96.0); MONO # 1.2 10^3/uL (0.0-0.8); MONO % 11.6 % (0.0-5.0); NEUTROPHILS # 7.2 10^3/uL (1.8-7.7); NEUTROPHILS % 67.6 % (36.0-66.0); RED BLOOD COUNT 3.15 10^6/uL (4.00-5.40); WHITE BLOOD COUNT 10.7 10^3/uL (4.0-10.0)
[2019-05-16 06:43] LABS: PLATELET COUNT, AUTOMATED 95 10^3/uL (150-450)
[2019-05-16 06:44] LABS: HEMOGLOBIN 9.5 g/dl (12.0-15.5)
[2019-05-16 06:47] LABS: BLOOD UREA NITROGEN 42 MG/DL (7-18); CALCIUM LEVEL 7.8 MG/DL (8.8-10.2); CARBON DIOXIDE LEVEL 26 MEQ/L (21-32); CHLORIDE LEVEL 104 MEQ/L (98-107); CREATININE FOR GFR 0.69 MG/DL (0.55-1.30); GLOMERULAR FILTRATION RATE > 60.0 (>32); GLUCOSE, FASTING 246 MG/DL (70-100); POTASSIUM SERUM 3.1 MEQ/L (3.5-5.1); SODIUM LEVEL 138 MEQ/L (136-145)
--- NOTE | 2019-05-16 08:49 | IPNPDOC ---
Date Seen The patient was seen on 05/16/19. Progress Note SUBJECTIVE: An 83-year-old white female with a past medical history of hypertension, atrial fibrillation, dyslipidemia, type 2 diabetes, iron deficiency anemia, stroke, thrombocytopenia, carcinoid tumor of bowel, diverticulitis, bilateral hearing loss, and sick sinus syndrome presented to the Emergency department with generalized weakness and fatigue. The patient is accompanied by her two daughters who aid in giving a thorough history. Patient states that she began experiencing upper respiratory symptoms on 05/12/19. Her symptoms consisted of productive cough, post nasal drainage, generalized fatigue, vomiting, nausea, dizziness, and weakness. She denies having a fever or chills during this time. She presented to an urgent care clinic on 05/13/19 and was told that her lung bar were clear; they instructed her to buy Cepacol cough drops to help with her cough. The patient progressively felt more fatigue and weakness over the next two days to the point where she felt she needed to vi sit the Emergency department. Her daughters stated that she began looking severely pale two days ago and has lost 6 lbs since 05/12/19. Her daughters also stated that she is usually a very active 83 year old and has been considerably less active over the last four days. The patient states that she has not had much of an appetite but has been drinking fluids on a regular basis. She denies bright red blood per rectum; her stool is usually dark and she attributes this to taking an iron supplement. She denies fevers, chills, hematuria, hemoptysis, hematemesis, or syncope. Patient examined at bedside and looks clinically better than yesterday in the ER. Patient began an NPO diet beginning at 12:00 am 05/16/19. She was given breakfast this morning despite the NPO order and has since then been told to not eat or drink anything until after her EGD scheduled for this afternoon. Mrs. Lutz admits to having more energy today and was able to walk to the bathroom with the help of a nurse. Currently holding anticoagulants; patient is aware of the risks associated with holding anticoagulation and has given her consent. She denies fevers, chills, hematuria, hemoptysis, hematemesis, or syncope. PHYSICAL EXAMINATION: VITAL SIGNS: Please see below. GENERAL: Patient is lying in bed. She appears more alert today and her skin coloration is pink in comparison to yesterday. HEENT: Conjunctival pallor improved from yesterday CARDIOVASCULAR: irregularly irregular rhythm. A systolic murmur is heard in the left 2nd ICS. LUNGS: equal air intake b/l. Patient has slight basilar crackles heard in lower lung bar. ABDOMEN: soft, non tender, normal bowel sounds EXTREMITIES: No edema, rashes, or cyanosis, pulses 2+ throughout NEUROLOGICAL: no focal deficits PSYCHIATRIC: normal affect LABORATORY DATA, IMAGING STUDIES, MICROBIOLOGY: Please see below. Chest X-ray 05/15/19: No infiltrate seen. Pacemaker in place. The heart size is normal DVT prophylaxis ordered?: Holding xarelto 2/2 to potential GI bleed. Currently on TEDs/SCDs ASSESSMENT AND PLAN: An 83 year old white female with a past medical history of hypertension, atrial fibrillation, dyslipidemia, type 2 diabetes, iron deficiency anemia, stroke, thrombocytopenia, carcinoid tumor of bowel, diverticulitis, bilateral hearing loss, and sick sinus syndrome PROBLEMS: 1. Acute Blood loss anemia. Differential: upper GI bleed from PUD vs AVMS vs Gastritis/esophagitis vs less likely right colonic/lower GI bleeding -Patient on NPO diet until after EGD -EGD scheduled for 05/16/19 -Patient received four units of blood over last 24 hours -Monitor H&H, transfuse slowly until a hemoglobin of 8 is achieved. Hgb this am: 9.5 -1 unit of lasix given in between blood transfusions -Consulted GI, we appreciate their input -Holding Xarelto for 48 hours -Begin pantoprazole -Guaiac test positive 2. Mild lactic acidosis -Initial lactic acidosis measured 3.8. Four hour followup measurement was 2.9. -c/w IV fluids and monitor for fluid overload 3. Hypokalemia: -Potassium level today was 3.1 4. Diabetes -hold all oral medications and home insulin -ISS 5. Hyperlipidemia -Holding atorvastatin -restart atorvastatin when able to take PO medications 6. Past stroke -holding xarelto 7. Hypertension -holding losartan -restart when able to take PO medications 8. Bilateral hearing deficit -wears hearing aids DISPOSITION: Patient is stable and comfortable. Gastroenterology has been consulted; their input is appreciated. She is NPO and scheduled for EGD this afternoon. Will monitor H&H and transfuse as needed. VS, I&O, 24H, Fishbone Vital Signs/I&O Vital Signs Date Time Temp Pulse Resp B/P (MAP) Pulse Ox O2 Delivery O2 Flow Rate FiO2 05/16/19 08:00 97.4 95 18 126/59 (81) 93 05/15/19 15:31 Room Air I&O- Last 24 Hours up to 6 AM 05/16/19 06:00 Intake Total 1180 ml Output Total 400 ml Balance 780 ml Laboratory Data 24H LABS Laboratory Tests 2 05/15/19 09:42: Prothrombin Time 20.1H, Prothromb Time International Ratio 1.74 05/15/19 09:43: Immature Granulocyte % (Auto) 1.3, White Blood Count 10.9H, Red Blood Count 1.94L, Hemoglobin 6.2*L, Hematocrit 18.6L, Mean Corpuscular Volume 95.9, Mean Corpuscular Hemoglobin 32.0, Mean Corpuscular Hemoglobin Concent 33.3, Red Cell Distribution Width 14.6H, Platelet Count 144L, Neutrophils (%) (Auto) 79.4H, Lymphocytes (%) (Auto) 11.4L, Monocytes (%) (Auto) 7.3H, Eosinophils (%) (Auto) 0.4, Basophils (%) (Auto) 0.2, Neutrophils # (Auto) 8.7H, Lymphocytes # (Auto) 1.2L, Monocytes # (Auto) 0.8, Eosinophils # (Auto) 0.0, Basophils # (Auto) 0.0, Nucleated Red Blood Cells % (auto) 0.4H, Anion Gap 10, Glomerular Filtration Rate > 60.0, Lactic Acid Level 3.8*H, Calcium Level 8.6L, Aspartate Amino Transf (AST/SGOT) 12, Alanine Aminotransferase (ALT/SGPT) 15, Alkaline Phosphatase 47, Total Bilirubin 0.7, Direct Bilirubin 0.3H, Total Creatine Kinase 39, Creatine Kinase MB 1.8, Creatine Kinase MB Relative Index 4.62H, Troponin I < 0.02, [id number]-Type Natriuretic Peptide 152, Total Protein 6.4, Albumin 2.8L, Albumin/Globulin Ratio 0.78L, Thyroid Stimulating Hormone (TSH) 1.840, Thyroxine (T4) 8.9 05/15/19 14:12: Lactic Acid Followup at 4 Hours 2.9*H 05/15/19 20:00: Immature Granulocyte % (Auto) 1.6, White Blood Count 12.9H, Red Blood Count 2.37L, Hemoglobin 7.4L, Hematocrit 22.1L, Mean Corpuscular Volume 93.2, Mean Corpuscular Hemoglobin 31.2, Mean Corpuscular Hemoglobin Concent 33.5, Red Cell Distribution Width 15.7H, Platelet Count 116L, Neutrophils (%) (Auto) 78.7H, Lymphocytes (%) (Auto) 11.7L, Monocytes (%) (Auto) 7.6H, Eosinophils (%) (Auto) 0.2, Basophils (%) (Auto) 0.2, Neutrophils # (Auto) 10.2H, Lymphocytes # (Auto) 1.5, Monocytes # (Auto) 1.0H, Eosinophils # (Auto) 0.0, Basophils # (Auto) 0.0, Nucleated Red Blood Cells % (auto) 0.5H 05/15/19 20:18: Bedside Glucose (Misc Panel) 387H 05/15/19 22:59: Immature Granulocyte % (Auto) 1.9, White Blood Count 13.9H, Red Blood Count 2.25L, Hemoglobin 7.0L, Hematocrit 20.6L, Mean Corpuscular Volume 91.6, Mean Corpuscular Hemoglobin 31.1, Mean Corpuscular Hemoglobin Concent 34.0, Red Cell Distribution Width 15.8H, Platelet Count 122L, Neutrophils (%) (Auto) 67.0H, Lymphocytes (%) (Auto) 18.7L, Monocytes (%) (Auto) 11.8H, Eosinophils (%) (Auto) 0.3, Basophils (%) (Auto) 0.3, Neutrophils # (Auto) 9.3H, Lymphocytes # (Auto) 2.6, Monocytes # (Auto) 1.6H, Eosinophils # (Auto) 0.0, Basophils # (Auto) 0.0, Nucleated Red Blood Cells % (auto) 0.7H 05/16/19 06:15: Immature Granulocyte % (Auto) 3.1H, White Blood Count 10.7H, Red Blood Count 3.15L, Hemoglobin 9.5#L, Hematocrit 27.2L, Mean Corpuscular Volume 86.3, Mean Corpuscular Hemoglobin 30.2, Mean Corpuscular Hemoglobin Concent 34.9, Red Cell Distribution Width 15.3H, Platelet Count 95L, Neutrophils (%) (Auto) 67.6H, Lymphocytes (%) (Auto) 16.1L, Monocytes (%) (Auto) 11.6H, Eosinophils (%) (Auto) 1.4, Basophils (%) (Auto) 0.2, Neutrophils # (Auto) 7.2, Lymphocytes # (Auto) 1.7, Monocytes # (Auto) 1.2H, Eosinophils # (Auto) 0.2, Basophils # (Auto) 0.0, Nucleated Red Blood Cells % (auto) 0.9H, Immature Platelet Fraction 5.8, Anion Gap 8, Glomerular Filtration Rate > 60.0, Blood Urea Nitrogen 42H, Creatinine 0.69, Sodium Level 138, Potassium Level 3.1#L, Chloride Level 104, Carbon Dioxide Level 26, Calcium Level 7.8L 05/16/19 06:38: Bedside Glucose (Misc Panel) 251H CBC/BMP Laboratory Tests 05/15/19 09:43 Red Blood Count 1.94 L, Mean Corpuscular Volume 95.9, Mean Corpuscular Hemoglobin 32.0, Mean Corpuscular Hemoglobin Concent 33.3, Red Cell Distribution Width 14.6 H, Neutrophils (%) (Auto) 79.4 H, Lymphocytes (%) (Auto) 11.4 L, Monocytes (%) (Auto) 7.3 H, Eosinophils (%) (Auto) 0.4, Basophils (%) (Auto) 0.2, Neutrophils # (Auto) 8.7 H, Lymphocytes # (Auto) 1.2 L, Monocytes # (Auto) 0.8, Eosinophils # (Auto) 0.0, Basophils # (Auto) 0.0 05/15/19 20:00 Red Blood Count 2.37 L, Mean Corpuscular Volume 93.2, Mean Corpuscular Hemoglobin 31.2, Mean Corpuscular Hemoglobin Concent 33.5, Red Cell Distribution Width 15.7 H, Neutrophils (%) (Auto) 78.7 H, Lymphocytes (%) (Auto) 11.7 L, Monocytes (%) (Auto) 7.6 H, Eosinophils (%) (Auto) 0.2, Basophils (%) (Auto) 0.2, Neutrophils # (Auto) 10.2 H, Lymphocytes # (Auto) 1.5, Monocytes # (Auto) 1.0 H, Eosinophils # (Auto) 0.0, Basophils # (Auto) 0.0 05/15/19 22:59 Red Blood Count 2.25 L, Mean Corpuscular Volume 91.6, Mean Corpuscular Hemoglobin 31.1, Mean Corpuscular Hemoglobin Concent 34.0, Red Cell Distribution Width 15.8 H, Neutrophils (%) (Auto) 67.0 H, Lymphocytes (%) (Auto) 18.7 L, Monocytes (%) (Auto) 11.8 H, Eosinophils (%) (Auto) 0.3, Basophils (%) (Auto) 0.3, Neutrophils # (Auto) 9.3 H, Lymphocytes # (Auto) 2.6, Monocytes # (Auto) 1.6 H, Eosinophils # (Auto) 0.0, Basophils # (Auto) 0.0 05/16/19 06:15 Red Blood Count 3.15 L, Mean Corpuscular Volume 86.3, Mean Corpuscular Hemoglob in 30.2, Mean Corpuscular Hemoglobin Concent 34.9, Red Cell Distribution Width 15.3 H, Neutrophils (%) (Auto) 67.6 H, Lymphocytes (%) (Auto) 16.1 L, Monocytes (%) (Auto) 11.6 H, Eosinophils (%) (Auto) 1.4, Basophils (%) (Auto) 0.2, Neutrophils # (Auto) 7.2, Lymphocytes # (Auto) 1.7, Monocytes # (Auto) 1.2 H, Eosinophils # (Auto) 0.2, Basophils # (Auto) 0.0, Calcium Level 7.8 L Attending Note Attending Note I have personally seen and examined the patient this am. I agree with the finding and the plan of care as documented above in the resident's note/medical student's note. Acute Blood loss anemia due to GIB. Going for EGD today. 4 units transfused. No signs of heart failure. NURIA STRAUSS OMS-3 May 16, 2019 08:49 NATANAEL SWANSON MD May 16, 2019 11:41
[2019-05-16] MEDS ORDERED: NS 1,000 ML IV SCH (09:30)
[2019-05-16 10:52] LABS: HEMATOCRIT 28.9 % (36.0-47.0); HEMOGLOBIN 10.2 g/dl (12.0-15.5)
[2019-05-16] MEDS ORDERED: ACETYLCYSTEINE 20% 30 ML VIAL As Ordered ONE (13:41)
[2019-05-16] MEDS ORDERED: LIDOCAINE 2% INJ 100 MG/5 ML SDV (FOR ANES.) As Ordered ONE (13:41)
[2019-05-16] MEDS ORDERED: propofoL 200 MG/20 ML VIAL As Ordered ONE (13:41)
--- NOTE | 2019-05-16 14:20 | ROOR ---
Patient Name: Faustina Lutz Procedure Date: 05/16/2019 1:36 PM Date of : 1935 Age: 83 Room: [facility] Gender: Female Note Status: Finalized Procedure: Upper GI endoscopy Indications: Acute post hemorrhagic anemia Providers: Luis Jones MD Referring MD: Miranda Latif NP Requesting Provider: Medicines: Monitored Anesthesia Care Complications: No immediate complications. Procedure: Pre-Anesthesia Assessment: - Prior to the procedure, a History and Physical was performed, and patient medications and allergies were reviewed. The patient is competent. The risks and benefits of the procedure and the sedation options and risks were discussed with the patient. All questions were answered and informed consent was obtained. Patient identification and proposed procedure were verified by the physician, the nurse and the anesthesiologist in the procedure room. Mental Status Examination: alert and oriented. Airway Examination: normal oropharyngeal airway and neck mobility. Respiratory Examination: clear to auscultation. CV Examination: normal. Prophylactic Antibiotics: The patient does not require prophylactic antibiotics. Prior Anticoagulants: The patient has taken no previous anticoagulant or antiplatelet agents. ASA Grade Assessment: III - A patient with severe systemic disease. After reviewing the risks and benefits, the patient was deemed in satisfactory condition to undergo the procedure. The anesthesia plan was to use monitored anesthesia care (MAC). Immediately prior to administration of medications, the patient was re-assessed for adequacy to receive sedatives. The heart rate, respiratory rate, oxygen saturations, blood pressure, adequacy of pulmonary ventilation, and response to care were monitored throughout the procedure. The physical status of the patient was re-assessed after the procedure. The Endoscope was introduced through the mouth, and advanced to the second part of duodenum. The upper GI endoscopy was accomplished without difficulty. The patient tolerated the procedure well. Findings: The examined esophagus was normal. Type 1 isolated gastric varices (IGV1, varices located in the fundus) with no bleeding were found in the gastric fundus. There were stigmata of recent bleeding. They were large in largest diameter. The duodenal bulb and second portion of the duodenum were normal. Impression: - Normal esophagus. - Type 1 isolated gastric varices (IGV1, varices located in the fundus), without bleeding. - Normal duodenal bulb and second portion of the duodenum. - No specimens collected. Recommendation: - Patient has a contact number available for emergencies. The signs and symptoms of potential delayed complications were discussed with the patient. Return to normal activities tomorrow. Written discharge instructions were provided to the patient. - Full liquid diet after 1 hour and then to advance diet as tolerated. - Continue present medications. - No aspirin, ibuprofen, naproxen, or other non-steroidal anti-inflammatory drugs. - Obtain US abdomen dupplex of portal vein and Splenic vein. - Refer to an interventional radiologist if symptoms persist. - Return patient to [facility] for [facility] care. - Return to primary care physician. Luis Jones MD Luis Jones MD 05/16/2019 2:20:41 PM Electronically signed by Luis Jones MD Number of Addenda: 0 Note Initiated On: 05/16/2019 1:36 PM Estimated Blood Loss: Estimated blood loss: none.
[2019-05-16 17:12] LABS: HEMATOCRIT 28.7 % (36.0-47.0); HEMOGLOBIN 10.2 g/dl (12.0-15.5)
[2019-05-16] MEDS ORDERED: diphenhydrAMINE 25 MG CAP PO ONE (20:15)
[2019-05-16] MEDS ORDERED: ACETAMINOPHEN TAB 650MG DOSE (2X325MG) PO ONE (20:15)
[2019-05-16] MEDS: PANTOPRAZOLE 40MG TAB (PROTONIX) PO SCH (21:17)
[2019-05-16] MEDS: HumaLOG INSULIN (NovoLOG) PER UNIT SC SCH (21:19)
[2019-05-16 23:16] LABS: HEMOGLOBIN 9.1 g/dl (12.0-15.5)
[2019-05-17 04:00] VITALS: BP 134/62
[2019-05-17 05:41] LABS: BASO % 0.3 % (0.0-1.0); EOS # 0.1 10^3/uL (0.0-0.50); EOS % 1.8 % (0.0-3.0); HEMATOCRIT 25.6 % (36.0-47.0); HEMOGLOBIN 8.8 g/dl (12.0-15.5); LYMPH # 1.2 10^3/uL (1.5-4.5); LYMPH % 16.2 % (24.0-44.0); MEAN CORPUSCULAR HEMOGLOBIN 29.9 pg (27.0-33.0); MEAN CORPUSCULAR HGB CONC 34.4 g/dl (32.0-36.5); MEAN CORPUSCULAR VOLUME 87.1 fl (80.0-96.0); MONO # 0.9 10^3/uL (0.0-0.8); MONO % 11.6 % (0.0-5.0); NEUTROPHILS # 4.9 10^3/uL (1.8-7.7); NEUTROPHILS % 67.1 % (36.0-66.0); PLATELET COUNT, AUTOMATED 102 10^3/uL (150-450); RED BLOOD COUNT 2.94 10^6/uL (4.00-5.40); WHITE BLOOD COUNT 7.3 10^3/uL (4.0-10.0)
[2019-05-17 06:11] LABS: BLOOD UREA NITROGEN 22 MG/DL (7-18); CALCIUM LEVEL 7.8 MG/DL (8.8-10.2); CARBON DIOXIDE LEVEL 25 MEQ/L (21-32); CHLORIDE LEVEL 107 MEQ/L (98-107); CREATININE FOR GFR 0.72 MG/DL (0.55-1.30); GLOMERULAR FILTRATION RATE > 60.0 (>32); GLUCOSE, FASTING 229 MG/DL (70-100); POTASSIUM SERUM 3.2 MEQ/L (3.5-5.1); SODIUM LEVEL 140 MEQ/L (136-145)
[2019-05-17] MEDS: HumaLOG INSULIN (NovoLOG) PER UNIT SC SCH ×3 (07:30→21:09)
[2019-05-17 08:00] VITALS: BP 125/56
[2019-05-17] MEDS: PANTOPRAZOLE 40MG TAB (PROTONIX) PO SCH ×2 (08:06→20:58)
[2019-05-17] MEDS: KCL 10MEQ/100ML SWI (KRUN) 10 MEQ in IV 1 EA IV SCH ×2 (08:07→09:37)
[2019-05-17] MEDS ORDERED: POTASSIUM CHLORIDE 10 MEQ SR TABLET PO ONE (10:15)
[2019-05-17 11:13] LABS: HEMATOCRIT 27.4 % (36.0-47.0); HEMOGLOBIN 9.5 g/dl (12.0-15.5)
[2019-05-17 11:34] VITALS: BP 132/59
[2019-05-17 16:00] VITALS: BP 154/63
--- NOTE | 2019-05-17 16:31 | IPN ---
DATE: 05/17/2019 SUBJECTIVE: Patient examined at bedside with daughters in room. She has no new complaints and is feeling much better, back to her baseline. Her hemoglobin and hematocrit (H and H) remains stable. She underwent esophagogastroduodenoscopy (EGD) yesterday without any complications and is doing well. Denies any nausea, vomiting, lightheadedness, dizziness, abdominal pain, constipation or diarrhea. Has not had a bowel movement since yesterday and is unsure if most recent bowel movements were melanotic. Denies any acute blood loss and has no other complaints. OBJECTIVE: PHYSICAL EXAMINATION: VITAL SIGNS: Temperature 96.7, pulse 55, respirations 20, blood pressure 125/56, mean arterial pressure (MAP) of 79, pulse oximetry 97% on room air. GENERAL: Resting comfortably in bed, in no acute distress. Alert and oriented times three. Elderly, pleasant woman. HEENT: Normocephalic, atraumatic. Moist mucous membranes. Neck is supple. CARDIOVASCULAR: Regular rate and rhythm with a soft systolic murmur grade 2/6. LUNGS: Equal chest rise bilaterally. Clear without any adventitious sounds. ABDOMEN: Soft, nontender, nondistended. Normoactive bowel sounds. No appreciable masses. EXTREMITIES: 2+ radial pulses bilaterally. No peripheral edema or calf tenderness. NEUROLOGIC: No focal deficits. SKIN: No lesions, rashes or ulcerations. LABORATORIES: WBC 7.3, hemoglobin and hematocrit (H and H) 8.8 and 25.6, platelets 102. Sodium 140, potassium 3.2, BUN 22, creatinine 0.72. She has received 4 units packed red blood cells thus far. Esophagogastroduodenoscopy (EGD) report 05/16/2019 reveals type 1 isolated gastric varicis in the fundus without bleeding. Remainder of exam normal. ASSESSMENT AND PLAN: An 83-year-old female who came in to emergency room (ER) with generalized fatigue and weakness, found to be severely anemic on admission with hemoglobin 6.2 and had melanotic stools. 1. Symptomatic anemia secondary to acute blood loss. Patient had melanotic stools, but has not had a bowel movement in the past two days. Nonetheless, her hemoglobin and hematocrit (H and H) is stable status post 4 units packed red blood cells transfused this admission, with hemoglobin remaining around 9 to 10. She underwent EGD yesterday with Dr. Jones revealing non-bleeding grade I fundic ulcers. Patient is no longer symptomatic since the blood transfusions and is feeling like her normal self. Per gastroenterology (GI) recommendations, will follow up with an ultrasound of the abdomen with Duplex of portal and splenic veins and will resume her Xarelto, monitor H and H. Continue oral Protonix. 2. Hypokalemia. Potassium 3.2 today. Will continue supplementation. Reassess. 3. Paroxysmal atrial fibrillation. Rate is controlled currently without medication. Xarelto was initially held given acute bleed on admission. Discussed with family and they are agreeable to restarting it today and will monitor H and H. Status post pacemaker in 2013. 4. Hypertension. Patient's blood pressure is well-controlled without her home Cozaar. Continue monitoring. 5. Hyperlipidemia. Will continue statin on discharge. 6. Insulin-dependent diabetes mellitus type 2. Insulin sliding scale inpatient replacing home metformin and Levemir and Januvia. 7. Iron deficiency anemia. Patient is on iron supplement and will continue on discharge. 8. History of stroke. Without residual deficits. Patient stable. Continue statin Xarelto and monitor. 9. 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 10. Bilateral hearing loss. 11. Hx of Sick sinus syndrome. S/P pacemaker. Deep venous thrombosis (DVT) prophylaxis. Resume Xarelto. DISPOSITION: Monitor H and H. Pending ultrasound of liver today. Anticipate discharge tomorrow. Attending Note I have personally seen and examined the patient this am. I agree with the finding and the plan of care as documented above in the resident's note. LIVE
[2019-05-17] MEDS ORDERED: RIVAROXABAN 20 MG TAB (XARELTO) PO SCH (18:00)
[2019-05-17] MEDS ORDERED: LOSARTAN 50 MG TAB PO SCH (21:00)
[2019-05-17] MEDS ORDERED: ATORVASTATIN 10 MG TAB PO SCH (21:00)
[2019-05-17] MEDS ORDERED: SITagliptin 50 MG TAB (JANUVIA) PO SCH (21:00)
[2019-05-17 23:59] VITALS: BP 100/61
[2019-05-18] MEDS ORDERED: diphenhydrAMINE 25 MG CAP PO ONE
[2019-05-18] MEDS ORDERED: ACETAMINOPHEN TAB 650MG DOSE (2X325MG) PO ONE
[2019-05-18 04:00] VITALS: BP 134/60
[2019-05-18 05:22] LABS: BLOOD UREA NITROGEN 15 MG/DL (7-18); CALCIUM LEVEL 7.8 MG/DL (8.8-10.2); CARBON DIOXIDE LEVEL 25 MEQ/L (21-32); CHLORIDE LEVEL 108 MEQ/L (98-107); GLOMERULAR FILTRATION RATE > 60.0 (>32); GLUCOSE, FASTING 211 MG/DL (70-100); POTASSIUM SERUM 3.5 MEQ/L (3.5-5.1); SODIUM LEVEL 140 MEQ/L (136-145)
[2019-05-18 05:26] LABS: BASO % 0.3 % (0.0-1.0); EOS # 0.1 10^3/uL (0.0-0.50); EOS % 2.2 % (0.0-3.0); HEMATOCRIT 26.9 % (36.0-47.0); HEMOGLOBIN 8.9 g/dl (12.0-15.5); LYMPH # 1.2 10^3/uL (1.5-4.5); LYMPH % 18.6 % (24.0-44.0); MEAN CORPUSCULAR HEMOGLOBIN 30.8 pg (27.0-33.0); MEAN CORPUSCULAR HGB CONC 33.1 g/dl (32.0-36.5); MEAN CORPUSCULAR VOLUME 93.1 fl (80.0-96.0); MONO # 0.8 10^3/uL (0.0-0.8); MONO % 13.3 % (0.0-5.0); NEUTROPHILS # 3.9 10^3/uL (1.8-7.7); NEUTROPHILS % 63.4 % (36.0-66.0); RED BLOOD COUNT 2.89 10^6/uL (4.00-5.40); WHITE BLOOD COUNT 6.2 10^3/uL (4.0-10.0)
[2019-05-18 05:52] LABS: PLATELET COUNT, AUTOMATED 99 10^3/uL (150-450)
[2019-05-18] MEDS ORDERED: HumaLOG INSULIN (NovoLOG) PER UNIT SC SCH (07:29)
[2019-05-18 07:39] VITALS: BP 144/63
--- NOTE | 2019-05-18 08:15 | REP ---
ULTRASOUND ABDOMEN WITH DUPLEX DOPPLER EVALUATION OF PORTAL VASCULATURE: Real-time ultrasound evaluation of the abdomen performed. The patient has had prior cholecystectomy. There is not significant dilatation. The common bile duct measures 11-12 mm, which is upper limits of normal for a patient this age, status post cholecystectomy. Liver echotexture is heterogeneous and coarsened, which may indicate cirrhosis. No gross liver or pancreatic mass is seen. Pancreatic tail is not well seen due to overlying bowel gas. Spleen is mildly enlarged measuring 13.4 cm in length. Splenic index is 931. There appear to be tiny calcified granulomas in the spleen. The kidneys are normal in size and echotexture, right kidney measuring 10.7 x 5.1 x 3.8 cm and left kidney 11.3 x 5.2 x 4.1 cm. There is no hydronephrosis bilaterally. Simple cyst in the lower left kidney measures 2.3 x 1.6 x 2.0 cm. No abdominal aortic aneurysm is seen, maximum AP diameter approximately 2.4 cm and distally 2.3 cm. No ascites is seen. Duplex Doppler evaluation of the portal vasculature demonstrates the hepatic artery peak systolic velocity 71.3 cm/s. There is normal direction of flow in the portal vasculature. Velocity in the splenic vein is 53.1 cm/s maximally. The superior mesenteric vein is patent. Portable vein measures 14 mm, minimally dilated. Peak velocity in the main portal vein is 24.1 cm/s. No hepatic vein thrombosis is seen. IMPRESSION: Status post cholecystectomy without significant biliary dilatation. Coarsened echotexture of the liver with possible cirrhosis. Mild splenomegaly. Slightly dilated portal vein suggests mild portal hypertension. No ascites. Normal direction of flow in the portal vasculature. No portal vein or hepatic vein thrombosis. Electronically Signed by Raymundo Ayala MD 05/18/2019 10:34 P
[2019-05-18] MEDS ORDERED: PANT40TA3 PO (08:18)
[2019-05-18] MEDS: PANTOPRAZOLE 40MG TAB (PROTONIX) PO SCH (08:49)
[2019-05-18] MEDS ORDERED: SERTRALINE HCL 50 MG TAB PO SCH ×2 (09:00)
[2019-05-18] MEDS ORDERED: FERROUS SULFATE 325MG TAB PO SCH (09:00)
[2019-05-18] MEDS ORDERED: LOSA25TA14 PO (09:45)
[2019-05-18] MEDS ORDERED: CIPR500T3 PO (09:45)
[2019-05-18] MEDS ORDERED: PROP10TA56 PO (09:45)
[2019-05-18] MEDS ORDERED: cefTRIAXone SOD 1 GM in D5W MINI-BAG PLUS 50 ML IV SCH (10:00)
[2019-05-18] MEDS ORDERED: SITagliptin 50 MG TAB (JANUVIA) PO SCH (21:00)
[2019-05-18] MEDS ORDERED: ATORVASTATIN 10 MG TAB PO SCH (21:00)
[2019-05-18] MEDS ORDERED: LOSARTAN 50 MG TAB PO SCH (21:00)
[2019-05-19 10:15] LABS: HEPATITIS B SURFACE ANTIGEN NEGATIVE (NEGATIVE)
--- NOTE | 2019-05-19 18:38 | DS.PDOC ---
Discharge Summary General Date of Admission May 15, 2019 at 12:45 Date of Discharge 05/18/19 Discharge Summary PROCEDURES PERFORMED DURING STAY: EGD:- Normal esophagus. - Type 1 isolated gastric varices (IGV1, varices located in the fundus), without bleeding. - Normal duodenal bulb and second portion of the duodenum. ADMITTING DIAGNOSES: 1. GIB DISCHARGE DIAGNOSES: GIB due to isolated gastric varices Cirrhosis of liver Acute blood loss anemia with symptoms. Lactic acidosis Hypokalemia SECONDARY DIAGNOSIS: Hypertension, atrial fibrillation, dyslipidemia, type 2 diabetes, iron deficiency anemia, stroke, thrombocytopenia, carcinoid tumor of bowel, diverticulitis, and sick sinus syndrome COMPLICATIONS/CHIEF COMPLAINT: Anemia Associated With Acute Blood Loss. HISTORY OF PRESENT ILLNESS: See history and physical HOSPITAL COURSE: 83 year old white female with a past medical history of hypertension, atrial fibrillation, dyslipidemia, type 2 diabetes, iron deficiency anemia, stroke, thrombocytopenia, carcinoid tumor of bowel, diverticulitis, and sick sinus syndrome presented to the Emergency department with generalized weakness and fatigue with recent Viral URI symptoms in the past 5 days and was taking cough drops for this. The patient progressively felt more fatigue and weakness to the point where she felt she needed to visit the Emergency department. Her daughters stated that she began looking severely pale two days prior to admission and has lost 6 lbs since 05/12/19. Her daughters also stated that she is usually a very active 83 year old and has been considerably less active over the last four days. The patient states that she has not had much of an appetite but has been drinking fluids on a regular basis. But did mention on direct questioning that she was having bllack liquid stools for 2 days which stopped 2 days ago . She was found to be anemic and her guaiac was positive. She was admitted for GIB and Acute blood loss anemia. GIB due to isolated gastric varices received 4 units of PRBC. Abdominal US with hepatic Doppler showed cirrhotic liver without any hepatic or portal vein thrombosis there was no reversal of flow in the protal system unlikely to have splenic vein thrombosis . EVEN if there is we will just treat the cirrhosis Acute Blood loss anemia. due to upper GI bleed from gastric variceal bleeding. EGD on 05/16 as above. received 4 units of PRBC Cirrhosis of liver no history of alcohol abuse, hepatitis C is negative in 2018, HBsAg is negative. Probably due to HASH from diabetes and obesity. Patient was very obese till about 8 years ago when she had the colon resection for diverticulitis with colovesical fistula and removal of carcinoid tumor. started on Propranolol and reduced dose of losartan will give a course of ciprofloxacin due to the GIB to protect against hepatic encephalopathy Lactic acidosis due to anemia, blood loss and probably from cirrhosis. Hypokalemia: replaced Diabetes insulin dependent type 2 restart home meds januvia , metformin, levemir Hyperlipidemia restart home meds. Atrial fibrillation and sick sinus syndrome and stroke in the past without any residual deficits. holding xarelto due to GIB. The risk of bleeding at this point is much higher than having a stroke. Discuss with manager research and development whether it can be changed to something else. has pacemaker in place. Hypertension restart losartan but dose lowered as patient also started on propranolol for protal hypertension Bilateral hearing deficit wears hearing aids Iron deficiency anemia. Patient is on iron supplement and will continue on discharge. History of stroke. Without residual deficits. Patient stable. Continue 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 DISCHARGE MEDICATIONS: Please see below. ALLERGIES: Please see below. PHYSICAL EXAMINATION ON DISCHARGE: VITAL SIGNS: Please see below. GENERAL: Resting comfortably in bed, in no acute distress. Alert and oriented times three. Elderly, pleasant woman. HEENT: Normocephalic, atraumatic. Moist mucous membranes. Neck is supple. CARDIOVASCULAR: Regular rate and rhythm with a soft systolic murmur grade 2/6. LUNGS: Equal chest rise bilaterally. Clear without any adventitious sounds. ABDOMEN: Soft, nontender, nondistended. Normoactive bowel sounds. No appreciable masses. EXTREMITIES: 2+ radial pulses bilaterally. No peripheral edema or calf tenderness. NEUROLOGIC: No focal deficits. SKIN: No lesions, rashes or ulcerations. LABORATORY DATA: Please see below. ACTIVITY: [As tolerated]. DIET: Carb consistent DISPOSITION: 01 Home, Self-Care. DISCHARGE INSTRUCTIONS: Follow up with PMD in 1 to 2 weeks. Follow up manager research and development. Referral to Dr Jones for GI care. DISCHARGE CONDITION: [Stable]. TIME SPENT ON DISCHARGE: 40 minutes. Vital Signs/I&Os Vital Signs Date Time Temp Pulse Resp B/P (MAP) Pulse Ox O2 Delivery O2 Flow Rate FiO2 05/18/19 07:39 97.1 81 18 144/63 (90) 96 05/15/19 15:31 Room Air I&O- Last 24 Hours up to 6 AM 05/19/19 05:59 Intake Total 420 ml Output Total 0 ml Balance 420 ml Laboratory Data Labs 24H Laboratory Tests 2 05/19/19 12:52: Lab Scanned Report Transfusion Record CBC/BMP Item Value Date Time Sodium Level 140 MEQ/L 05/18/19 0422 Potassium Level 3.5 MEQ/L 05/18/19 0422 Chloride Level 108 MEQ/L H 05/18/19 0422 Carbon Dioxide Level 25 MEQ/L 05/18/19 0422 Anion Gap 7 MEQ/L L 05/18/19 0422 Blood Urea Nitrogen 15 MG/DL 05/18/19 0422 Creatinine 0.70 MG/DL 05/18/19 042 Glomerular Filtration Rate > 60.0 05/18/19 0422 Fasting Glucose 211 MG/DL H 05/18/19 0422 Calcium Level 7.8 MG/DL L 05/18/19 0422 White Blood Count 6.2 10^3/uL 05/18/19 0422 Red Blood Count 2.89 10^6/uL L 05/18/19 0422 Hemoglobin 8.9 g/dl L 05/18/19 0422 Hematocrit 26.9 % L 05/18/19 0422 Mean Corpuscular Volume 93.1 fl 05/18/19 0422 Mean Corpuscular Hemoglobin 30.8 pg 05/18/19 042 Mean Corpuscular Hemoglobin Concent 33.1 g/dl 05/18/19 0422 Red Cell Distribution Width 17.2 % H 05/18/19 042 Platelet Count 99 10^3/uL L 05/18/19 0422 Immature Granulocyte % (Auto) 2.2 % 05/18/19 0422 Neutrophils (%) (Auto) 63.4 % 05/18/19 0422 Lymphocytes (%) (Auto) 18.6 % L 05/18/19 0422 Monocytes (%) (Auto) 13.3 % H 05/18/19 042 Eosinophils (%) (Auto) 2.2 % 05/18/19 042 Basophils (%) (Auto) 0.3 % 05/18/19 042 Neutrophils # (Auto) 3.9 10^3/uL 05/18/19 0422 Lymphocytes # (Auto) 1.2 10^3/uL L 05/18/19 0422 Monocytes # (Auto) 0.8 10^3/uL 05/18/19 0422 Eosinophils # (Auto) 0.1 10^3/uL 05/18/19 0422 Basophils # (Auto) 0.0 10^3/uL 05/18/19 0422 Nucleated Red Blood Cells % (auto) 1.1 % H 05/18/19 042 Immature Platelet Fraction 5.2 % 05/18/19 042 Discharge Medications Scheduled Acetaminophen/Diphenhydramine (Acetaminophen Pm Caplet) 1 Each Tablet, 2 TAB PO QHS, (Reported) Atorvastatin Calcium (Atorvastatin Calcium) 10 Mg Tab, 10 MG PO QHS, (Reported) Cholecalciferol (Vitamin D3) (Vitamin D3) 1,000 Unit Tab, 5,000 UNITS PO DAILY, (Reported) Ciprofloxacin HCl (Ciprofloxacin HCl) 500 Mg Tablet, 1 TAB PO BID Cyanocobalamin (Cyanocobalamin Injection) 1,000 Mcg/1 Ml Vial, 1,000 MCG IM QMONTH, (Reported) Ferrous Sulfate (Ferrous Sulfate) 325 Mg Tab, 325 MG PO BID, (Reported) Insulin Detemir (Levemir Flextouch) 100 Unit/Ml Inj, 20 UNIT SQ QHS, (Reported) Losartan Potassium (Losartan Potassium) 25 Mg Tablet, 25 MG PO QHS Metformin HCl (Glucophage) 1,000 Mg Tab, 1,000 MG PO DAILY, (Reported) Metformin HCl (Metformin HCl) 1,000 Mg Tablet, 1,500 MG PO QHS, (Reported) Pantoprazole Sodium (Pantoprazole Sodium) 40 Mg Tablet.dr, 40 MG PO BID Propranolol HCl (Propranolol HCl) 10 Mg Tablet, 1 TAB PO BID Sertraline Hcl (Sertraline HCl) 50 Mg Tab, 50 MG PO DAILY, (Reported) Sitagliptin Phosphate (Januvia) 100 Mg Tab, 100 MG PO QHS, (Reported) Vit A/Vit C/Vit E/Zinc/Copper (Icaps Areds Formula Dr Tablet) 1 Tab Tab, 1 TAB PO QHS, (Reported) Allergies Coded Allergies: aspirin (Verified Allergy, Intermediate, Hives, 02/24/19) iodine (Verified Allergy, Intermediate, Hives, 02/24/19) pioglitazone (Verified Allergy, Intermediate, Edema, 02/24/19) TAPE (Unverified Allergy, Unknown, 04/07/10) NATANAEL SWANSON MD May 19, 2019 18:38
== END 2019-05-18 11:50 | disposition home or self-care (01) | DRG 300 ==
LOC: M ED 08:43 → M ED INP 12:45 → M PCU 15:50
PROVIDERS: ADMIT Internal Medicine Nephrology; ATTEND Internal Medicine Nephrology
PROC: 30233N1 Transfusion of Nonautologous Red Blood Cells into Peripheral Vein, Percutaneous Approach (ICD-10-PCS; 2019-05-15)
PROC: 0DJ08ZZ Inspection of Upper Intestinal Tract, Via Natural or Artificial Opening Endoscopic (ICD-10-PCS; principal; 2019-05-16 14:00)
DX: I86.4 Gastric varices (principal); D62 Acute posthemorrhagic anemia; E87.2 Acidosis; K92.2 Gastrointestinal hemorrhage, unspecified; I10 Essential (primary) hypertension; I48.91 Unspecified atrial fibrillation; E78.5 Hyperlipidemia, unspecified; E11.9 Type 2 diabetes mellitus without complications; D50.9 Iron deficiency anemia, unspecified; E55.9 Vitamin D deficiency, unspecified; D69.6 Thrombocytopenia, unspecified; Z90.49 Acquired absence of other specified parts of digestive tract; Z85.51 Personal history of malignant neoplasm of bladder; Z95.0 Presence of cardiac pacemaker; Z98.49 Cataract extraction status, unspecified eye; Z86.73 Personal history of transient ischemic attack (TIA), and cerebral infarction without residual deficits; Z79.4 Long term (current) use of insulin; Z79.899 Other long term (current) drug therapy; Z88.6 Allergy status to analgesic agent; Z88.8 Allergy status to other drugs, medicaments and biological substances; Z91.048 Other nonmedicinal substance allergy status; Z85.040 Personal history of malignant carcinoid tumor of rectum; H91.93 Unspecified hearing loss, bilateral; E53.8 Deficiency of other specified B group vitamins; L92.0 Granuloma annulare; E87.6 Hypokalemia; K74.60 Unspecified cirrhosis of liver

== ENCOUNTER 2019-05-22 12:19 | Inpatient (IN) | payer MEDICARE, BC, OTHER ==
[~2019-05-22] VITALS: Ht 162.6 cm; Wt 88.2 kg
[~2019-05-22 12:19] MED LIST changes: +ACET25TA12 PO; +CIPR500T3 PO; +CYAN1000VL IM; +GLIM4TAB PO; -GLIM4TAB5 PO; +LOSA25TA14 PO; +METF10004 PO; +PANT40TA3 PO; +PROP10TA56 PO
[2019-05-22] MEDS ORDERED: PANTOPRAZOLE SODIUM 40 MG in D5W 50 ML IV SCH (12:30)
[2019-05-22] MEDS ORDERED: NS 1,000 ML IV SCH (12:30)
[2019-05-22] MEDS ORDERED: PANTOPRAZOLE 40MG INJ (PROTONIX) (C9113) IV ONE (12:30)
[2019-05-22 13:20] LABS: HEMATOCRIT 25.3 % (36.0-47.0); HEMOGLOBIN 8.1 g/dl (12.0-15.5); MEAN CORPUSCULAR HEMOGLOBIN 30.8 pg (27.0-33.0); MEAN CORPUSCULAR VOLUME 96.2 fl (80.0-96.0); PLATELET COUNT, AUTOMATED 163 10^3/uL (150-450); RED BLOOD COUNT 2.63 10^6/uL (4.00-5.40); WHITE BLOOD COUNT 17.5 10^3/uL (4.0-10.0)
--- NOTE | 2019-05-22 13:23 | REP ---
CHEST, SINGLE VIEW: Single view of the chest is performed and compared to prior study of 05/15/2019. Ill-defined opacity peripherally in the right upper lobe measures about 1.3 cm in diameter, possibly representing a small ill-defined infiltrate or nodule. Left lung is clear. Heart is normal in size. There is calcification of the thoracic aorta. Mediastinal silhouette is unchanged. Left dual lead pacemaker is noted. Electronically Signed by Raymundo Ayala MD 05/22/2019 02:02 P
[2019-05-22 13:29] LABS: BLOOD UREA NITROGEN 19 MG/DL (7-18); CARBON DIOXIDE LEVEL 19 MEQ/L (21-32); CHLORIDE LEVEL 109 MEQ/L (98-107); CREATININE FOR GFR 0.78 MG/DL (0.55-1.30); GLOMERULAR FILTRATION RATE > 60.0 (>32); GLUCOSE, FASTING 161 MG/DL (70-100); SODIUM LEVEL 140 MEQ/L (136-145)
[2019-05-22 13:32] LABS: INR 1.46; PROTHROMBIN TIME 17.5 SECONDS (11.8-14.0)
[2019-05-22 13:33] LABS: PARTIAL THROMBOPLASTIN TIME 32.4 SECONDS (25.0-38.4)
[2019-05-22] MEDS ORDERED: CHOL50002 PO (14:33)
[2019-05-22] MEDS ORDERED: LOSA25TA14 PO (14:33)
[2019-05-22] MEDS ORDERED: PROP10TA56 PO (14:33)
[2019-05-22] MEDS ORDERED: PANT-23 PO (14:33)
[2019-05-22] MEDS ORDERED: CIPR500T3 PO (14:33)
[2019-05-22] MEDS ORDERED: GLUCAGON FOR INJ 1 MG VIAL (J1610) SC PRN (15:00)
[2019-05-22] MEDS ORDERED: DEXTROSE 50% 50 ML SYRINGE IV PRN (15:00)
[2019-05-22] MEDS ORDERED: PANTOPRAZOLE 40MG INJ (PROTONIX) (C9113) IV SCH (15:00)
[2019-05-22] MEDS ORDERED: GLUCOSE 4 GM CHEW TABLET PO PRN (15:00)
--- NOTE | 2019-05-22 15:42 | HPEPDOC ---
[facility] Medical History & Physical Date of Admission May 22, 2019 Date of Service: May 22, 2019 History and Physical PCP: Miranda Latif CHIEF COMPLAINT: Vomiting blood HISTORY OF PRESENT ILLNESS: Patient is an 83-year-old female who was recently admitted 718 through 722 with the same chief complaint. At that time she was noted to be on Xarelto for atrial fibrillation, this medication was held and has since not been restarted. She was seen by gastroenterology who completed upper endoscopy that revealed type I isolated gastric varices located in the fundus without bleeding patient received 4 units of PRBCs during that hospitalization. She states prior to receiving the blood she had symptoms of orthostasis with dizziness upon arising, weakness, dyspnea on exertion. She doesn't following blood transfusion this didn't resolve however in the last 2 days since her discharge she has noticed recurrence of her symptoms. She tells me that she takes iron supplements in her stool is dark and tarry and has been for a long time. The patient had recurrence of hematemesis this morning where she vomited 1 quarts wor she denies any abdominal pain diarrhea or changes in bowel habits. Otherwise patient denies any new weight loss, hair loss, headache, visual changes, chest pain, cough, muscle aches, worsening arthritis, change in mood PAST MEDICAL HISTORY: 1. Hypertension. 2. Atrial fibrillation previously on Xarelto not currently on anticoagulation. 3. Dyslipidemia 4. Iron deficiency 5. Sick sinus syndrome status post pacer 6. CVA 7. Osteopenia 8. Carcinoid tumor of the bowel 9. 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 Hearing impairment. 11. Mood disorder HOME MEDICATIONS: Please see below. ALLERGIES: Please see below PAST SURGICAL HISTORY: 1. Cholecystectomy. 2. Bladder repair 3. Cataract extraction 4. Pacer placement 5. Hysterectomy 6. Bowel resection 7. Hernia repair 8. Ovarian cyst removal. SOCIAL HISTORY: Lives with: Daughter, Employment: Retired, Tobacco use: Previous smoker in the distant past. ETOH: Denies, Illicit drug use: Denies, Tattoos done unprofessionally: Denies, CODE STATUS: Full code FAMILY HISTORY:Reviewed and noncontributory REVIEW OF SYSTEMS: 10 systems reviewed and negative other than HPI PHYSICAL EXAMINATION: VITAL SIGNS: Temperature 98.2, pulse 63, respiratory rate 20, blood pressure 135/63, pulse oximetry 94 % on room air. GENERAL: Pleasant pale frail elderly femalesitting up in bed awake alert oriented speaking in complete sentences no acute distress she is accompanied by her daughter who is bedside and assists with history HEENT: Moist mucous membranes no elevation and CVP, conjunctival pallor CARDIOVASCULAR: S1 S2 regular no additional heart sounds appreciated. She is not tachycardic at the time of my exam RESPIRATORY: Clear to auscultation bilaterally. ABDOMINAL: Bowel sounds present abdomen soft and nontender EXTREMITIES: No clubbing cyanosis or edema NEUROLOGICAL: Spontaneously moves all 4 extremities cranial 2 through 12 grossly intact no gross focal deficits appreciated PSYCHOLOGICAL: Appropriate LABORATORY DATA: See below. MICROBIOLOGY: Please see below. IMAGING: EGD: Impression: - Normal esophagus. - Type 1 isolated gastric varices (IGV1, varices located in the fundus), without bleeding. - Normal duodenal bulb and second portion of the duodenum. - No specimens collected. Chest x-ray:Ill-defined opacity peripherally in the right upper lobe measures about 1.3 cm in diameter, possibly representing a small ill-defined infiltrate or nodule. Left lung is clear. Heart is normal in size. There is calcification of the thoracic aorta. Mediastinal silhouette is unchanged. Left dual lead pacemaker is noted ASSESSMENT & PLAN: This is a 83-year-old female with hematemesis. PROBLEMS: 1. Hematemesis: Likely related to her gastric varices secondary to liver cirrhosis. I have placed a consult gastroenterology, she'll be on a PPI IV drip in addition to octreotide drip. We'll monitor hemoglobin and hematocrit serially she will be nothing by mouth I'll provide her with gentle IV fluids. She is not currently on any anticoagulation she appears to be hemodynamically stable I will check orthostatics admitted for progressive care unit. I'll provide her with 2 units of PRBCs thus he does appear to have symptomatic anemia at this time and did have a positive response to blood during her previous hospitalization. Given that she is having GI bleed with known cirrhosis I'll provide her with ceftriaxone she was on ciprofloxacin at home since the time of her discharge. Liver cirrhosis: 2. Non-anion gap metabolic acidosis: We'll check a lactic acid her BUN is only mildly elevated she does have some hypochloremia I will change her fluids to lactated Ringer's 3.Liver cirrhosis: I do not see where she is at a paracentesis or liver biopsy however given her body habitus and history that appears to be some suspicion that this is secondary to Lee. For the time being I will check a liver profile discontinue her atorvastatin hold her propranolol while she is having active bleeding and avoid Tylenol for the time being 4. Diabetes mellitus: I'll provide him with sliding-scale insulin she will be nothing by mouth for the time being we will hold her home metformin 5. Mood disorder: We will hold her sertraline for the time being 6. Hypertension: We will hold her propranolol and losartan for the time being while she is having active bleeding 7. Iron deficiency anemia: Certainly an element of likely acute blood loss anemia at this time as well we are we'll transfuse her as noted above we will hold her by mouth iron supplement for the time being. DVT PROPHYLAXIS: Sequentials and teds no pharmacological agents in the setting of active bleeding DISPOSITION: Admitted to the progressive care unit inpatient status Vital Signs Vital Signs Date Time Temp Pulse Resp B/P (MAP) Pulse Ox O2 Delivery O2 Flow Rate FiO2 05/22/19 12:28 98.2 63 20 135/63 94 Room Air Laboratory Data Labs 24H Laboratory Tests 2 05/22/19 12:59: Nucleated Red Blood Cells % (auto) 0.0, Prothrombin Time 17.5H, Prothromb Time International Ratio 1.46, Activated Partial Thromboplast Time 32.4, Anion Gap 12, Glomerular Filtration Rate > 60.0, Calcium Level 8.0L CBC/BMP Laboratory Tests 05/22/19 12:59 Red Blood Count 2.63 L, Mean Corpuscular Volume 96.2 H, Mean Corpuscular Hemoglobin 30.8, Mean Corpuscular Hemoglobin Concent 32.0, Red Cell Distribution Width 17.9 H Home Medications Scheduled Acetaminophen/Diphenhydramine (Acetaminophen Pm Caplet) 1 Each Tablet, 2 TAB PO QHS Atorvastatin Calcium (Atorvastatin Calcium) 10 Mg Tab, 10 MG PO QHS Cholecalciferol (Vitamin D3) (Vitamin D3) 5,000 Unit Capsule, 5,000 UNIT PO DAILY Ciprofloxacin HCl (Ciprofloxacin HCl) 500 Mg Tablet, 500 MG PO BID FILLED 05/18/19 FOR 10 DAYS Cyanocobalamin (Cyanocobalamin Injection) 1,000 Mcg/1 Ml Vial, 1,000 MCG IM QMONTH Ferrous Sulfate (Ferrous Sulfate) 325 Mg Tab, 325 MG PO BID Insulin Detemir (Levemir Flextouch) 100 Unit/Ml Inj, 20 UNIT SQ QHS Losartan Potassium (Losartan Potassium) 25 Mg Tablet, 25 MG PO QHS Metformin HCl (Glucophage) 1,000 Mg Tab, 1,000 MG PO DAILY Metformin HCl (Metformin HCl) 1,000 Mg Tablet, 1,500 MG PO QHS Pantoprazole Sodium (Pantoprazole Sodium) 40 Mg Tablet.dr, 40 MG PO BID Propranolol HCl (Propranolol HCl) 10 Mg Tablet, 10 MG PO BID Sertraline Hcl (Sertraline HCl) 50 Mg Tab, 50 MG PO DAILY Sitagliptin Phosphate (Januvia) 100 Mg Tab, 100 MG PO QHS Vit A/Vit C/Vit E/Zinc/Copper (Icaps Areds Formula Dr Tablet) 1 Tab Tab, 1 TAB PO QHS Allergies Coded Allergies: aspirin (Verified Allergy, Intermediate, Hives, 02/24/19) iodine (Verified Allergy, Intermediate, Hives, 02/24/19) pioglitazone (Verified Allergy, Intermediate, Edema, 02/24/19) TAPE (Unverified Allergy, Unknown, 04/07/10) A-FIB/CHADSVASC A-FIB History Current/History of A-Fib/PAF?: Yes Current PO Anticoag Therapy: No Age/Risk Factor Scoring CHADSVASC: CHADSVASC Response (Comments) Value Age Risk Factor Age >/= 75 years old 2 Gender Risk Factor Female 1 Hx of CHF No 0 Hx of HTN Yes 1 Hx of Stroke/TIA/or VTE Yes 2 Hx of Diabetes Yes 1 Hx of Vascular Disease No 0 Total 7 Treatment Treatment ordered: NONE Reason Anticoagulant not given: Current bleeding ABRAM AUGUSTIN MD May 22, 2019 15:42
[2019-05-22 15:47] LABS: ALBUMIN 2.7 GM/DL (3.2-5.2); ALT/SGPT 17 U/L (12-78); BILIRUBIN,DIRECT 0.3 MG/DL (0.0-0.2); BILIRUBIN,TOTAL 0.7 MG/DL (0.2-1.0); TOTAL PROTEIN 5.6 GM/DL (6.4-8.2)
[2019-05-22] MEDS: OCTREOTIDE ACETATE 1,200 MCG in NS 238.8 ML IV SCH (17:53)
[2019-05-22] MEDS: cefTRIAXone SOD 1 GM in D5W MINI-BAG PLUS 50 ML IV SCH (17:58)
[2019-05-22] MEDS: LR 1,000 ML IV SCH (19:00)
[2019-05-22 19:38] LABS: HEMATOCRIT 24.2 % (36.0-47.0); HEMOGLOBIN 7.7 g/dl (12.0-15.5)
--- NOTE | 2019-05-22 20:53 | ECGEPIP ---
- ED Test Date: 2019-05-22 Pat Name: CAT CHEW Department: Room: [place] [address] Gender: Female [employer] Machine: ANDREW : 1935 Requested By: Lalo Van Order Number: [id number] Reading MD: Lalo Sutherland Measurements Intervals Bradley Rate: 59 P: 91 NE: 193 QRS: -50 QRSD: 97 T: 74 QT: 427 QTc: 426 Interpretive Statements ELECTRONIC ATRIAL PACEMAKER LEFT ANTERIOR FASCICULAR BLOCK RHYTHM/RATE CHANGE COMPARED TO 05/15/19 Electronically Signed on 05-22-2019 20:52:43 EDT by Lalo Sutherland
[2019-05-22 21:00] VITALS: BP 119/51
[2019-05-22] MEDS: PANTOPRAZOLE SODIUM 40 MG in D5W 50 ML IV SCH (21:21)
[2019-05-23] VITALS (14 sets, daily range): BP systolic 114–172; BP diastolic 52–73; O2SAT 98–99
[2019-05-23] MEDS: PANTOPRAZOLE SODIUM 40 MG in D5W 50 ML IV SCH ×5 (02:30→18:04)
[2019-05-23] MEDS: HumaLOG INSULIN (NovoLOG) PER UNIT SC SCH ×5 (05:33→20:47)
[2019-05-23 05:34] LABS: HEMATOCRIT 28.8 % (36.0-47.0); HEMOGLOBIN 9.1 g/dl (12.0-15.5); MEAN CORPUSCULAR HEMOGLOBIN 30.2 pg (27.0-33.0); MEAN CORPUSCULAR HGB CONC 31.6 g/dl (32.0-36.5); MEAN CORPUSCULAR VOLUME 95.7 fl (80.0-96.0); PLATELET COUNT, AUTOMATED 108 10^3/uL (150-450); RED BLOOD COUNT 3.01 10^6/uL (4.00-5.40); WHITE BLOOD COUNT 8.8 10^3/uL (4.0-10.0)
[2019-05-23 06:04] LABS: BLOOD UREA NITROGEN 36 MG/DL (7-18); CALCIUM LEVEL 7.8 MG/DL (8.8-10.2); CARBON DIOXIDE LEVEL 22 MEQ/L (21-32); CHLORIDE LEVEL 110 MEQ/L (98-107); CREATININE FOR GFR 0.67 MG/DL (0.55-1.30); GLOMERULAR FILTRATION RATE > 60.0 (>32); GLUCOSE, FASTING 188 MG/DL (70-100); POTASSIUM SERUM 4.7 MEQ/L (3.5-5.1); SODIUM LEVEL 139 MEQ/L (136-145)
[2019-05-23] MEDS: LR 1,000 ML IV SCH (06:30)
[2019-05-23 08:14] LABS: ALBUMIN 2.3 GM/DL (3.2-5.2); ALT/SGPT 17 U/L (12-78); BILIRUBIN,TOTAL 0.7 MG/DL (0.2-1.0); TOTAL PROTEIN 5.6 GM/DL (6.4-8.2)
[2019-05-23] MEDS: HYDROCORTISONE 100 MG/2 ML VIAL (J1720) IV SCH ×2 (09:32→13:09)
[2019-05-23] MEDS ORDERED: diphenhydrAMINE INJ 50MG/ML VIAL (J1200) IV ONE (10:00)
[2019-05-23 11:19] LABS: HEMATOCRIT 31.4 % (36.0-47.0); HEMOGLOBIN 10.3 g/dl (12.0-15.5)
--- NOTE | 2019-05-23 11:59 | IPNPDOC ---
Date Seen The patient was seen on 05/23/19. Progress Note SUBJECTIVE: Patient is a 83 year old female with past medical history of hypertension, atrial fibrillation, dyslipidemia, iron deficiency, Sick sinus syndrome, CVA, liver cirrhosis secondary to nonalcoholic steatohepatitis, osteopenia, mood disorder, and carcinoid tumor of the bowel presented to the emergency room vomiting blood. The patient had recently been admitted to the hospital from 05/15-05/19 for a chief complaint of progressive weakness, dizziness, fatigue, pallor, and possible GI bleed. GI was consulted and she had an upper endoscopy that revealed Type 1 isolated gastric varices in the fundus without bleeding. Ms. Lutz received four units of blood during hospitalization. She felt well for a few days after being discharged and then began feeling progressive fatigue, dizziness, and weakness. Yesterday morning she had an episode of hematemesis and vomited approximately 1 quart worth; she then presented to the ER. She denies abdominal pain, diarrhea, changes in bowel habits, new weight loss, chest pain, or syncope. Patient is examined at the bedside; she is accompanied by her daughter Gracie. Patient states that she is feeling less weak and fatigued than she did yeste rday. She received two units of RBCs yesterday and her pallor has improved. She denies syncope, dizziness, hematemesis, diarrhea, or changes in bowel habits. OBJECTIVE PHYSICAL EXAMINATION: VITAL SIGNS: Please see below. GENERAL: Patient is sitting in bed. She is comfortable and cooperative. HEENT: NC AT, slight conjunctival pallor noted, mucous membranes moist CARDIOVASCULAR: 2/6 pansystolic murmur heard, Regular rate and rhythm RESPIRATORY: equal air intake bilaterally, clear to auscultation ABDOMINAL: soft, nontender to palpation, normal bowel sounds EXTREMITIES: Skin pallor noted, no cyanosis or ecchymosis NEUROLOGICAL: Alert and oriented x3 PSYCHOLOGICAL: normal affect LABORATORY DATA, IMAGING STUDIES, MICROBIOLOGY: Please see below. Chest x-ray 05/22/19: Ill-defined opacity peripherally in the right upper lobe measures about 1.3 cm in diameter, possibly representing a small ill-defined infiltrate or nodule. Left lung is clear. Heart is normal in size. There is calcification of the thoracic aorta. Mediastinal silhouette is unchanged. Left dual lead pacemaker is noted. DVT prophylaxis ordered?: Yes, TEDs and SCDs ASSESSMENT AND PLAN: Patient is a 83 year old female with past medical history of hypertension, atrial fibrillation, dyslipidemia, iron deficiency, Sick sinus syndrome, CVA, liver cirrhosis secondary to nonalcoholic steatohepatitis, osteopenia, mood disorder, and carcinoid tumor of the bowel PROBLEMS: 1. Hematemesis likely 2/2 to gastric varices 2/2 to liver cirrhosis -GI has been consulted -2 units of RBCs transfused -Monitoring patient H&H. Hgb 9.1 today -Interventional radiology ordered CT Abdominal/pelvis with contrast to assess for TIPS procedure -Holding Xarelto, atorvastatin, propranolol, and Tylenol while patient is actively bleeding -c/w IV Proton pump inhibitor, IV octreotide, and ceftriaxone -NPO diet for possible TIPS procedure 2. Non anion gap metabolic acidosis -lactic acid 2.2 today -BUN 36 today -Start patient on lactated ringers 3. Liver cirrhosis -May be secondary to nonalcoholic steatohepatitis -Check liver profile 4. Diabetes Mellitus -Sliding scale insulin -holding home medications 5. Mood disorder -holding sertraline 6. Hypertension -Holding losartan and propranolol 7. Iron deficiency anemia -May be 2/2 to acute blood loss -Transfused 2 units of RBCs -Holding Iron supplement DISPOSITION: Patient is stable and comfortable. Ms. Lutz has a CT of the Abdomen and Pelvis ordered for today to assess for possible TIPS procedure. We appreciate GI and Interventional Radiology for their input. I saw and evaluated the patient. I agree with the findings and plan of care as documented in the above note VS, I&O, 24H, Fishbone Vital Signs/I&O Vital Signs Date Time Temp Pulse Resp B/P (MAP) Pulse Ox O2 Delivery O2 Flow Rate FiO2 05/23/19 07:41 97.0 82 18 129/62 (84) 94 05/22/19 17:04 Room Air I&O- Last 24 Hours up to 6 AM 05/23/19 05:59 Intake Total 795 ml Output Total 0 ml Balance 795 ml Laboratory Data 24H LABS Laboratory Tests 2 05/22/19 12:59: Nucleated Red Blood Cells % (auto) 0.0, Prothrombin Time 17.5H, Prothromb Time International Ratio 1.46, Activated Partial Thromboplast Time 32.4, Anion Gap 12, Glomerular Filtration Rate > 60.0, Lactic Acid Level 6.7*H, Calcium Level 8.0L, Aspartate Amino Transf (AST/SGOT) 21, Alanine Aminotransferase (ALT/SGPT) 17, Alkaline Phosphatase 54, Total Bilirubin 0.7, Direct Bilirubin 0.3H, Total Protein 5.6L, Albumin 2.7L, Albumin/Globulin Ratio 0.93L 05/22/19 15:37: 05/22/19 20:11: Lactic Acid Followup at 4 Hours 5.9*H 05/23/19 01:27: Bedside Glucose (Misc Panel) 185H 05/23/19 04:51: Nucleated Red Blood Cells % (auto) 0.0, Anion Gap 7L, Glomerular Filtration Rate > 60.0, Blood Urea Nitrogen 36#H, Creatinine 0.67, Sodium Level 139, Potassium Level 4.7, Chloride Level 110H, Carbon Dioxide Level 22, Calcium Level 7.8L, Aspartate Amino Transf (AST/SGOT) 22, Alanine Aminotransferase (ALT/SGPT) 17, Al kaline Phosphatase 57, Total Bilirubin 0.7, Total Protein 5.6L, Albumin 2.3L, Albumin/Globulin Ratio 0.70L 05/23/19 05:28: Lactic Acid Level 2.2*H CBC/BMP Laboratory Tests 05/22/19 12:59 Red Blood Count 2.63 L, Mean Corpuscular Volume 96.2 H, Mean Corpuscular Hemoglobin 30.8, Mean Corpuscular Hemoglobin Concent 32.0, Red Cell Distribution Width 17.9 H 05/22/19 19:28 05/23/19 04:51 Red Blood Count 3.01 L, Mean Corpuscular Volume 95.7, Mean Corpuscular Hemoglobin 30.2, Mean Corpuscular Hemoglobin Concent 31.6 L, Red Cell Distribut ion Width 16.9 H, Calcium Level 7.8 L, Aspartate Amino Transf (AST/SGOT) 22, Alanine Aminotransferase (ALT/SGPT) 17, Alkaline Phosphatase 57, Total Bilirubin 0.7, Total Protein 5.6 L, Albumin 2.3 L Microbiology Microbiology 05/22/19 Blood Culture, Received Pending 05/22/19 Blood Culture, Received Pending NURIA STRAUSS OMS-3 May 23, 2019 11:58 ABRAM AUGUSTIN MD May 24, 2019 17:45
[2019-05-23] MEDS ORDERED: ISOVUE-370 76% 100ML VIAL (Q9967) As Ordered ONE (12:05)
--- NOTE | 2019-05-23 12:54 | CR.PDOC ---
General Date of Consultation: May 23, 2019 Referring Provider: ABRAM AUGUSTIN MD Consultation REASON FOR CONSULTATION/CHIEF COMPLAINT: GI bleeding. Gastric varices. Cirrhosis. HISTORY OF PRESENT ILLNESS: Patient with long-term anemia and melena on iron tablets, presents to the hospital after hematemesis. Describes couple of episodes of hematemesis yesterday. No hematemesis since hospital admission. Stools are black but patient is on iron. Denies alcohol history, drugs, autoimmune hepatitis or viral hepatitis. No family history of liver disease. Denies ascites or jaundice. ALLERGIES: Please see below. HOME MEDICATIONS: Please see below. PAST MEDICAL HISTORY: 1. Hypertension. 2. Atrial fibrillation previously on Xarelto not currently on anticoagulation. 3. Dyslipidemia 4. Iron deficiency 5. Sick sinus syndrome status post pacer 6. CVA 7. Osteopenia 8. Carcinoid tumor of the bowel 9. 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 Hearing impairment. 11. Mood disorder PAST SURGICAL HISTORY: 1. Gallbladder surgery 2. Hernia surgery 3. Hysterectomy FAMILY HISTORY: Nonsignificant SOCIAL HISTORY: Lives with daughter. Self caring. Independent. Denies alcohol or drugs. Nonsmoker. REVIEW OF SYSTEMS: Otherwise negative PHYSICAL EXAMINATION: VITAL SIGNS: Please see below. GENERAL APPEARANCE: Pale. HEENT: No scleral icterus. RESPIRATORY: Normal breathing at rest. Normal breath sounds bilaterally. CARDIOVASCULAR: Systolic murmur. Normal heart rate. ABDOMEN: Soft nontender. Nondistended. No rebound or guarding. EXTREMITIES: Moving all 4 extremities. NEUROLOGICAL: Alert and oriented. PSYCHIATRIC: Appropriate to circumstance. LABORATORY DATA: Please see below. Studies: I personally reviewed the same day CT abdomen pelvis with contrast. There is a gastro-renal shunt feeding the gastric varices. The splenic vein is patent. ASSESSMENT/PLAN: 83-year-old female with isolated gastric varices on endoscopy and gastrorenal shunt present on CT scan presents with hematemesis and melena. Patient would benefit from balloon occlusive retrograde transvenous obliteration of the gastric varices. We will schedule the patient for the procedure to be done under moderate sedation. Thank you for the referral Vital Signs/I&O Vital Signs Date Time Temp Pulse Resp B/P (MAP) Pulse Ox O2 Delivery O2 Flow Rate FiO2 05/23/19 12:00 96.9 61 18 162/66 (98) 99 05/22/19 17:04 Room Air I&O- Last 24 Hours up to 6 AM 05/23/19 06:00 Intake Total 795 ml Output Total 0 ml Balance 795 ml Laboratory Data Labs 24H Laboratory Tests 2 05/22/19 12:59: Nucleated Red Blood Cells % (auto) 0.0, Prothrombin Time 17.5H, Prothromb Time International Ratio 1.46, Activated Partial Thromboplast Time 32.4, Anion Gap 12, Glomerular Filtration Rate > 60.0, Lactic Acid Level 6.7*H, Calcium Level 8.0L, Aspartate Amino Transf (AST/SGOT) 21, Alanine Aminotransferase (ALT/SGPT) 17, Alkaline Phosphatase 54, Total Bilirubin 0.7, Direct Bilirubin 0.3H, Total Protein 5.6L, Albumin 2.7L, Albumin/Globulin Ratio 0.93L 05/22/19 15:37: 05/22/19 20:11: Lactic Acid Followup at 4 Hours 5.9*H 05/23/19 01:27: Bedside Glucose (Misc Panel) 185H 05/23/19 04:51: Nucleated Red Blood Cells % (auto) 0.0, Anion Gap 7L, Glomerular Filtration Rate > 60.0, Blood Urea Nitrogen 36#H, Creatinine 0.67, Sodium Level 139, Potassium Level 4.7, Chloride Level 110H, Carbon Dioxide Level 22, Calcium Level 7.8L, Aspartate Amino Transf (AST/SGOT) 22, Alanine Aminotransferase (ALT/SGPT) 17, Alkaline Phosphatase 57, Total Bilirubin 0.7, Total Protein 5.6L, Albumin 2.3L, Albumin/Globulin Ratio 0.70L 05/23/19 05:28: Lactic Acid Level 2.2*H 05/23/19 11:08: Lactic Acid Followup at 4 Hours 2.1*H 05/23/19 11:53: Bedside Glucose (Misc Panel) 186H CBC/BMP Laboratory Tests 05/22/19 12:59 Red Blood Count 2.63 L, Mean Corpuscular Volume 96.2 H, Mean Corpuscular Hemoglobin 30.8, Mean Corpuscular Hemoglobin Concent 32.0, Red Cell Distribution Width 17.9 H 05/22/19 19:28 05/23/19 04:51 Red Blood Count 3.01 L, Mean Corpuscular Volume 95.7, Mean Corpuscular Hemoglobin 30.2, Mean Corpuscular Hemoglobin Concent 31.6 L, Red Cell Distribution Width 16.9 H, Calcium Level 7.8 L, Aspartate Amino Transf (AST/SGOT) 22, Alanine Aminotransferase (ALT/SGPT) 17, Alkaline Phosphatase 57, Total Bilirubin 0.7, Total Protein 5.6 L, Albumin 2.3 L 05/23/19 11:08 Microbiology Microbiology 05/22/19 Blood Culture, Received Pending 05/22/19 Blood Culture, Received Pending Allergies Coded Allergies: aspirin (Verified Allergy, Intermediate, Hives, 02/24/19) iodine (Verified Allergy, Intermediate, Hives, 02/24/19) pioglitazone (Verified Allergy, Intermediate, Edema, 02/24/19) TAPE (Unverified Allergy, Unknown, 04/07/10) Home Medications Scheduled Acetaminophen/Diphenhydramine (Acetaminophen Pm Caplet) 1 Each Tablet, 2 TAB PO QHS, (Reported) Atorvastatin Calcium (Atorvastatin Calcium) 10 Mg Tab, 10 MG PO QHS, (Reported) Cholecalciferol (Vitamin D3) (Vitamin D3) 5,000 Unit Capsule, 5,000 UNIT PO DAILY, (Reported) Ciprofloxacin HCl (Ciprofloxacin HCl) 500 Mg Tablet, 500 MG PO BID, (Reported) FILLED 05/18/19 FOR 10 DAYS Cyanocobalamin (Cyanocobalamin Injection) 1,000 Mcg/1 Ml Vial, 1,000 MCG IM QMONTH, (Reported) Ferrous Sulfate (Ferrous Sulfate) 325 Mg Tab, 325 MG PO BID, (Reported) Insulin Detemir (Levemir Flextouch) 100 Unit/Ml Inj, 20 UNIT SQ QHS, (Reported) Losartan Potassium (Losartan Potassium) 25 Mg Tablet, 25 MG PO QHS, (Reported) Metformin HCl (Glucophage) 1,000 Mg Tab, 1,000 MG PO DAILY, (Reported) Metformin HCl (Metformin HCl) 1,000 Mg Tablet, 1,500 MG PO QHS, (Reported) Pantoprazole Sodium (Pantoprazole Sodium) 40 Mg Tablet.dr, 40 MG PO BID, (Reported) Propranolol HCl (Propranolol HCl) 10 Mg Tablet, 10 MG PO BID, (Reported) Sertraline Hcl (Sertraline HCl) 50 Mg Tab, 50 MG PO DAILY, (Reported) Sitagliptin Phosphate (Januvia) 100 Mg Tab, 100 MG PO QHS, (Reported) Vit A/Vit C/Vit E/Zinc/Copper (Icaps Areds Formula Dr Tablet) 1 Tab Tab, 1 TAB PO QHS, (Reported) EDGAR OGLESBY MD May 23, 2019 12:54
[2019-05-23] MEDS ORDERED: diphenhydrAMINE INJ 50MG/ML VIAL (J1200) As Ordered ONE (13:06)
[2019-05-23] MEDS ORDERED: fentaNYL 100 MCG/2 ML INJECTION (J3010) As Ordered ONE (13:07)
[2019-05-23] MEDS ORDERED: ISOVUE-300 61% 50ML VIAL (Q9967) As Ordered ONE ×2 (13:07→15:02)
[2019-05-23] MEDS ORDERED: LIDOCAINE 1% MDV 20ML VIAL As Ordered ONE ×2 (13:07→13:08)
[2019-05-23] MEDS ORDERED: MIDAZOLAM INJ 2 MG/2 ML VIAL (J2250) As Ordered ONE (13:07)
--- NOTE | 2019-05-23 13:22 | REP ---
CT of the abdomen and pelvis with IV contrast, without bowel contrast: Comparison is 10/05/2010. The patient has a history of severe hives with intravenous contrast and was premedicated prior to the study. There is multiphasic imaging with scanning initially performed during the arterial phase of enhancement and repeated during the portal venous phase of enhancement and again repeated after a 5-minute delay. The visualized lower lung bar are unremarkable. The hepatic margin is mildly nodular compatible with cirrhosis in the appropriate clinical setting. There are numerous calcified granulomas throughout the liver and spleen. The pancreas and spleen are otherwise unremarkable. There is a cholecystectomy. There are gastrosplenic varices. No splenorenal varices are identified. No gastrorenal varices are identified. The adrenals are unremarkable. There are too left renal simple cysts within the mid pole measuring 1.7 cm, subcapsular, and the other at the lower pole measuring 2.2 cm. The kidneys are otherwise unremarkable. The abdominal aorta is unremarkable except for circumferential calcified atheroma. There is no retroperitoneal adenopathy or mass. There is no ascites. The bowel and mesentery are unremarkable. The umbilical vein is recannulated. Pelvis: There is a hysterectomy. Vaginal cuff and adnexa are unremarkable. The bladder is unremarkable. There is no adenopathy or ascites. The pelvic bowel loops are unremarkable. There are anterior abdominal wall retainer is suggestive of mesh. Impression Slightly nodular hepatic surface compatible with cirrhosis. No hepatic masses. Hepatic and splenic calcified granulomas. Gastrosplenic varices. There are no splenorenal varices. There are no gastrorenal varices. There is no ascites. Hysterectomy, cholecystectomy and appendectomy. Electronically Signed by Raymundo London MD 05/23/2019 01:14 P
[2019-05-23] MEDS ORDERED: ONDANSETRON 4MG/2ML VIAL (J2405) As Ordered ONE (15:41)
[2019-05-23] MEDS ORDERED: NITROGLYCERIN IN D5W 25MG/250ML (100MCG/ML) As Ordered ONE (16:02)
[2019-05-23] MEDS ORDERED: hydrALAZINE INJ 20 MG/ML VIAL As Ordered ONE (16:03)
--- NOTE | 2019-05-23 16:39 | POST-OPPD ---
Postoperative Procedure Note Date Of Procedure: May 23, 2019 Time Of Procedure: 16:37 PREOPERATIVE DIAGNOSIS: isolated gastric varices POSTOPERATIVE DIAGNOSIS: isolated gastric varices FINDINGS: gastric varices. Gastrorenal shunt PROCEDURE: BRTO of gastric varices SURGEON: Yudith ANESTHESIA: moderate sedation ESTIMATED BLOOD LOSS: < 5 ml COMPLICATIONS: none POSTOPERATIVE CONDITION: stable EDGAR OGLESBY MD May 23, 2019 16:39
--- NOTE | 2019-05-23 17:12 | REP ---
IR Balloon Occlusive Retrograde Transvenous Obliteration of gastric varices. IR gastric varix embolization. IR moderate sedation. IR ultrasound right groin. Clinical information: Isolated gastric varices. Hematemesis and melena. Anemia. No esophageal varices on EGD. Physician: Dr. Zurita. Procedure: The patient was advised of the benefits, risks and alternatives of the procedure and informed consent was obtained. The time-out was performed with verification of the patient's name, MRN, site of procedure and type of procedure to be performed. The patient was positioned in the supine position on the angiographic table. The site was prepped and draped in the usual sterile fashion. Moderate sedation was performed by the physician including the presence of an independent trained observer that assisted in monitoring the patient's level of consciousness and physiologic status. Following the administration of Fentanyl and Versed, the physician spent 90 minutes of continuous face to face time with the patient. Preliminary ultrasound of the right groin demonstrates a patent right femoral vein. The right common femoral vein was accessed with a micropuncture kit, under ultrasound guidance. An 035 wire was placed into the peripheral inferior vena cava, under fluoroscopic guidance. The microsheath was exchanged for a 6 Ukrainian Vinay sheath. A 5 F Glidecath was advanced over the wire into the inferior vena cava and used to catheterize the left renal vein, under fluoroscopic guidance. A venogram was performed which demonstrates a patent left renal vein and IVC. The venogram demonstrates the takeoff of the Gastro renal shunt. In conjunction with a Glidewire the catheter was used to catheterize the gastro renal shunt. A venogram was performed and demonstrate successful catheterization of the Gastro renal shunt. The catheter was exchanged over the wire for a 5-Ukrainian Noam catheter. The noam balloon was inflated in the Gastro renal shunt and a repeat venogram was performed. This demonstrates the entire gastric varices and drainage back to the portal system. A mixture of Gelfoam and contrast was used to embolize the gastric varices under fluoroscopy guidance with the balloon inflated and occlusive in the proximal Gastro renal shunt. The entire gastric varix was embolized under fluoroscopy guidance. Multiple coils were then deployed in the gastro renal shunt to occlusion. The Aburto catheter was deflated and removed under fluoroscopy guidance. The sheath was removed, pressure held and hemostasis achieved. The patient tolerated the procedure well and was returned to the PRU in stable condition. EBL: < 5 ml. Complications: None. Conclusion: 1. Renal venogram demonstrates patent renal vein and Gastro renal shunt communicating with gastric varices. 2. Successful balloon occlusive retrograde transvenous obliteration of gastric varices with Gelfoam and coils. 3. Patient to follow up in IR clinic in 1 month. Thank you this referral. Electronically Signed by Laly Zurita MD 05/23/2019 05:11 P
[2019-05-23] MEDS: cefTRIAXone SOD 1 GM in D5W MINI-BAG PLUS 50 ML IV SCH (18:04)
[2019-05-23] MEDS: OCTREOTIDE ACETATE 1,200 MCG in NS 238.8 ML IV SCH (18:04)
[2019-05-23] MEDS: ACETAMINOPHEN TAB 650MG DOSE (2X325MG) PO PRN (18:45)
[2019-05-23 19:31] LABS: HEMATOCRIT 30.5 % (36.0-47.0); HEMOGLOBIN 10.4 g/dl (12.0-15.5)
[2019-05-23] MEDS ORDERED: ONDANSETRON 4MG/2ML VIAL (J2405) IV ONE (20:30)
[2019-05-23] MEDS ORDERED: traMADol 50 MG TAB PO ONE (20:30)
[2019-05-23] MEDS: ATORVASTATIN 10 MG TAB PO SCH (20:37)
[2019-05-24 00:17] LABS: HEMATOCRIT 29.9 % (36.0-47.0)
[2019-05-24] MEDS ORDERED: PROMETHAZINE 25 MG TAB PO ONE (01:00)
[2019-05-24] MEDS: PANTOPRAZOLE SODIUM 40 MG in D5W 50 ML IV SCH ×6 (02:00→21:49)
[2019-05-24 04:00] VITALS: BP 155/65
[2019-05-24] MEDS ORDERED: ONDANSETRON 4MG/2ML VIAL (J2405) IV ONE (04:00)
[2019-05-24] MEDS ORDERED: METOCLOPRAMIDE INJ 10MG/2ML VIAL (J2765) IV ONE (04:45)
[2019-05-24] MEDS: LR 1,000 ML IV SCH ×3 (04:58→16:43)
[2019-05-24 05:05] LABS: HEMATOCRIT 29.1 % (36.0-47.0); HEMOGLOBIN 9.8 g/dl (12.0-15.5); MEAN CORPUSCULAR HEMOGLOBIN 30.3 pg (27.0-33.0); MEAN CORPUSCULAR HGB CONC 33.7 g/dl (32.0-36.5); MEAN CORPUSCULAR VOLUME 90.1 fl (80.0-96.0); PLATELET COUNT, AUTOMATED 207 10^3/uL (150-450); RED BLOOD COUNT 3.23 10^6/uL (4.00-5.40); WHITE BLOOD COUNT 14.4 10^3/uL (4.0-10.0)
[2019-05-24 05:25] LABS: BLOOD UREA NITROGEN 27 MG/DL (7-18); CALCIUM LEVEL 7.7 MG/DL (8.8-10.2); CARBON DIOXIDE LEVEL 25 MEQ/L (21-32); CHLORIDE LEVEL 105 MEQ/L (98-107); CREATININE FOR GFR 0.66 MG/DL (0.55-1.30); GLOMERULAR FILTRATION RATE > 60.0 (>32); GLUCOSE, FASTING 177 MG/DL (70-100); SODIUM LEVEL 139 MEQ/L (136-145)
[2019-05-24] MEDS ORDERED: ALPRAZolam 0.25 MG TAB PO ONE (06:45)
[2019-05-24] MEDS ORDERED: PILL CUTTER 1 EACH XX PRN (07:00)
[2019-05-24 08:00] VITALS: BP 165/71
[2019-05-24] MEDS: HumaLOG INSULIN (NovoLOG) PER UNIT SC SCH ×4 (08:58→21:00)
[2019-05-24] MEDS: SERTRALINE HCL 50 MG TAB PO SCH ×2 (09:03→09:04)
[2019-05-24 12:00] VITALS: BP 170/62
[2019-05-24 12:32] LABS: HEMATOCRIT 29.8 % (36.0-47.0); HEMOGLOBIN 9.8 g/dl (12.0-15.5)
[2019-05-24] MEDS ORDERED: amLODIPine 5 MG TAB PO ONE (13:45)
--- NOTE | 2019-05-24 15:58 | IPNPDOC ---
Text Note Date of Service The patient was seen on 05/24/19. NOTE SUBJECTIVE: Patient examined at bedside. States she is feeling well this mor renee, requesting to advance diet. Underwent BRTO yesterday with Dr. Zurita. H&H stable thus far. Had nausea afterwards, but no further vomiting. No melena or hematochezia or hematemesis. Otherwise patient denies chest pain, shortness breath, nausea, vomiting, fevers, chills. OBJECTIVE PHYSICAL EXAMINATION: VITAL SIGNS: Please see below. GENERAL: Pleasant resting comfortably in bed sitting up in bed awake alert oriented speaking in complete sentences no acute distress HEENT: Moist mucous membranes no elevation in CVP CARDIOVASCULAR: S1 S2 regular no additional heart sounds appreciated. 2/6 pansystolic murmur RESPIRATORY: Clear to auscultation bilaterally. ABDOMINAL: Bowel sounds present abdomen soft and non-tender EXTREMITIES: No clubbing cyanosis or edema NEUROLOGICAL: Spontaneously moves all 4 extremities cranial 2 through 12 grossly intact no gross focal deficits appreciated PSYCHOLOGICAL: Appropriate LABORATORY DATA, MICROBIOLOGY: Please see below. IMAGING STUDIES: * Chest x-ray 05/22/19: Ill-defined opacity peripherally in the right upper lobe measures about 1.3 cm in diameter, possibly representing a small ill-defined infiltrate or nodule. Left lung is clear. Heart is normal in size. There is calcification of the thoracic aorta. Mediastinal silhouette is unchanged. Left dual lead pacemaker is noted. * 05/23/2019 CT abdomen and pelvis: Slightly nodular hepatic surface compatible with cirrhosis. No hepatic masses. Hepatic and splenic calcified granulomas. Gastrosplenic varices. There are no splenorenal varices. There are no gastrorenal varices. There is no ascites. Hysterectomy, cholecystectomy and appendectomy. * 05/23/2019 fluoroscopy BRTO: 1. Renal venogram demonstrates patent renal vein and Gastro renal shunt communicating with gastric varices. 2. Successful balloon occlusive retrograde transvenous obliteration of gastric varices with Gelfoam and coils. 3. Patient to follow up in IR clinic in 1 month. 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 PROBLEMS: 1. Acute blood loss anemia 2/2 gastric varices of cirrhosis: H&H stable this am with hgb 9-10. She underwent BRTO of gastric varices yesterday 7/[address] Zurita. Appreciate input. Was recently diagnosed with cirrhosis 2/2 likely N YASEMIN on recent discharge last week, when she was found to have non-bleeding grade I gastric varices in the fundus and coarsened liver echotexture and mild portal hypertension without any hepatic or portal vein thrombosis. Currently, she is s/p 2 units PRBCs transfused during this stay. She continues on Protonix drip, octreotide drip, and ceftriaxone for SBP prophylaxis. Monitor H&H and po intake. Transfuse as needed to maintain Hgb >8. 2. Paroxysmal atrial fibrillation. Patient was discontinued from her anticoagulation from recent hospitalization due to GI bleed from gastric va rices. No longer on Xarelto. Status post pacemaker in 2013. 3. Hypertension. BP meds were on hold given her acute blood loss on admission. Will restart her Losartan. Propranolol for portal htn on hold given bradycardia. 4. Leukocytosis: Likely reactionary to procedure from yesterday. Patient afebrile and is otherwise feeling improved. Monitor 6. Insulin-dependent diabetes mellitus type 2. Insulin sliding scale inpatient replacing home metformin and Levemir and Januvia. 7. Iron deficiency anemia. Iron supplement on hold 8. History of stroke. Without residual deficits. Patient stable. Continue statin. No AC due to bleed 9. Carcinoid tumor of the bowel. Status post colon resection and rectal fi stula repair in 2010. 10. Bilateral hearing loss. Wears hearing aid's 11. Hx of Sick sinus syndrome. S/P pacemaker. 12. Depression: Stable. Continue sertraline 13. Hyperlipidemia. Continue statin DVT prophylaxis: Mechanical. Avoid AC due to acute bleed CODE STATUS: DNR/DNI DISPOSITION: Have reached out to Dr. Zurita regarding advancing diet. Monitor H&H and diet tolerance s/p BRTO. Likely dc home early next week with o/p f/u with GI Dr. Jones. I saw and evaluated the patient. I agree with the findings and plan of care as documented in the above note VS,Vamsibone, I+O VS, Vamsibone, I+O Laboratory Tests 05/23/19 19:26 05/24/19 00:08 05/24/19 04:48 Red Blood Count 3.23 L, Mean Corpuscular Volume 90.1, Mean Corpuscular Hemoglobin 30.3, Mean Corpuscular Hemoglobin Concent 33.7, Red Cell Distribution Width 17.3 H, Calcium Level 7.7 L 05/24/19 11:55 Vital Signs Date Time Temp Pulse Resp B/P (MAP) Pulse Ox O2 Delivery O2 Flow Rate FiO2 05/24/19 13:55 65 170/62 05/24/19 12:00 96.7 18 93 05/24/19 04:00 1.0 05/23/19 19:00 Nasal Cannula I&O- Last 24 Hours up to 6 AM 05/24/19 05:59 Intake Total 810 ml Output Total 400 ml Balance 410 ml JOSEF FOY DO May 24, 2019 15:58 ABRAM AUGUSTIN MD May 26, 2019 16:33
[2019-05-24 16:00] VITALS: BP 151/66
[2019-05-24] MEDS: cefTRIAXone SOD 1 GM in D5W MINI-BAG PLUS 50 ML IV SCH (16:43)
[2019-05-24] MEDS: OCTREOTIDE ACETATE 1,200 MCG in NS 238.8 ML IV SCH (16:43)
[2019-05-24] MEDS: ACETAMINOPHEN TAB 650MG DOSE (2X325MG) PO PRN ×2 (18:58→23:17)
[2019-05-24 20:00] VITALS: BP 148/66
[2019-05-24] MEDS: LOSARTAN 25 MG TAB PO SCH (21:48)
[2019-05-24] MEDS: ATORVASTATIN 10 MG TAB PO SCH (21:48)
[2019-05-24] MEDS: LEVEMIR (INSULIN DETEMIR) 1 UNITS/0.01ML SC SCH (21:49)
--- NOTE | 2019-05-24 21:50 | REPVR ---
EXAM: US Duplex Bilateral Upper Extremity Veins EXAM DATE/TIME: 05/24/2019 9:26 PM CLINICAL HISTORY: 83 years old, female; Edema, localized; Upper extremity, bilateral; Additional info: B/l hand TECHNIQUE: Imaging protocol: Real-time Duplex ultrasound of the Bilateral Upper Extremities with 2-D pope scale, color Doppler flow and spectral waveform analysis with image documentation. Complete exam focused on the bilateral upper extremity veins. COMPARISON: No relevant prior studies available. FINDINGS: Right deep veins: Internal jugular, subclavian, axillary and brachial veins patent without thrombus. Normal compressibility, augmentation response and/or Doppler waveforms. Right superficial veins: Visualized cephalic and basilic veins patent without thrombus. Left deep veins: Internal jugular, subclavian, axillary and brachial veins patent without thrombus. Normal compressibility, augmentation response and/or Doppler waveforms. Left superficial veins: Hypoechoic, occlusive thrombus in the distal cephalic vein. Visualized basilic vein patent without thrombus. Soft tissues: Unremarkable. IMPRESSION: 1. No sonographic evidence of deep vein thrombosis. 2. Hypoechoic, occlusive thrombus in the distal left cephalic vein. Electronically signed by: Romero Fung On 05/24/2019 21:49:42 PM
[2019-05-25] VITALS (7 sets, daily range): BP systolic 140–152; BP diastolic 58–70
[2019-05-25] MEDS: PANTOPRAZOLE SODIUM 40 MG in D5W 50 ML IV SCH (03:07)
[2019-05-25 05:18] LABS: HEMATOCRIT 26.6 % (36.0-47.0); HEMOGLOBIN 8.7 g/dl (12.0-15.5); MEAN CORPUSCULAR HGB CONC 32.7 g/dl (32.0-36.5); MEAN CORPUSCULAR VOLUME 91.7 fl (80.0-96.0); PLATELET COUNT, AUTOMATED 105 10^3/uL (150-450); WHITE BLOOD COUNT 8.4 10^3/uL (4.0-10.0)
[2019-05-25 05:36] LABS: BLOOD UREA NITROGEN 13 MG/DL (7-18); CALCIUM LEVEL 7.5 MG/DL (8.8-10.2); CARBON DIOXIDE LEVEL 26 MEQ/L (21-32); CHLORIDE LEVEL 107 MEQ/L (98-107); CREATININE FOR GFR 0.71 MG/DL (0.55-1.30); GLOMERULAR FILTRATION RATE > 60.0 (>32); GLUCOSE, FASTING 184 MG/DL (70-100); POTASSIUM SERUM 3.5 MEQ/L (3.5-5.1); SODIUM LEVEL 139 MEQ/L (136-145)
[2019-05-25] MEDS ORDERED: FUROSEMIDE 20 MG/2 ML VIAL (J1940) IV ONE (09:15)
[2019-05-25] MEDS: HumaLOG INSULIN (NovoLOG) PER UNIT SC SCH ×4 (09:26→20:49)
[2019-05-25] MEDS: SERTRALINE HCL 50 MG TAB PO SCH (09:27)
--- NOTE | 2019-05-25 09:32 | IPNPDOC ---
Date Seen The patient was seen on 05/25/19. Progress Note SUBJECTIVE: Patient reports feeling improved today, her left sided pain is improved with Tylenol alone. She tells me she was able to sleep better last night. Does complain of some swelling in her hands bilaterally Otherwise patient denies chest pain, shortness breath, nausea, vomiting, fevers, chills. Of note the patient was placed on some supplemental O2 overnight OBJECTIVE PHYSICAL EXAMINATION: VITAL SIGNS: Please see below. GENERAL: Pleasant frail elderly woman sitting in a [place] alert oriented speaking in complete sentences no acute distress she is accompanied by her grandson HEENT: Moist mucous membranes no elevation in CVP CARDIOVASCULAR: S1 S2 regular no additional heart sounds appreciated. 2/6 pansystolic murmur RESPIRATORY: Clear to auscultation bilaterally. New today there is some scattered bibasilar Rales ABDOMINAL: Bowel sounds present abdomen soft and non-tender EXTREMITIES: No clubbing cyanosis, trace edema NEUROLOGICAL: Spontaneously moves all 4 extremities cranial 2 through 12 grossly intact no gross focal deficits appreciated PSYCHOLOGICAL: Appropriate LABORATORY DATA, MICROBIOLOGY: Please see below. IMAGING STUDIES: * Chest x-ray 05/22/19: Ill-defined opacity peripherally in the right upper lobe measures about 1.3 cm in diameter, possibly representing a small ill-defined infiltrate or nodule. Left lung is clear. Heart is normal in size. There is calcification of the thoracic aorta. Mediastinal silhouette is unchanged. Left dual lead pacemaker is noted. * 05/23/2019 CT abdomen and pelvis: Slightly nodular hepatic surface compatible with cirrhosis. No hepatic masses. Hepatic and splenic calcified granulomas. Gastrosplenic varices. There are no splenorenal varices. There are no gastrorenal varices. There is no ascites. Hysterectomy, cholecystectomy and appendectomy. * 05/23/2019 fluoroscopy BRTO: 1. Renal venogram demonstrates patent renal vein and Gastro renal shunt communicating with gastric varices. 2. Successful balloon occlusive retrograde transvenous obliteration of gastric varices with Gelfoam and coils. 3. Patient to follow up in IR clinic in 1 month. * 05/24/2019 vascular ultrasound:1. No sonographic evidence of deep vein thrombosis. 2. Hypoechoic, occlusive thrombus in the distal left cephalic vein. 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 PROBLEMS: 1. Acute blood loss anemia 2/2 gastric varices: CT angiography suggestive of isolated gastric varices intervascular radiology did complete B RTO, the patient appeared to tolerate the procedure quite well she does have some left-sided flank pain since however it is improved each day while controlled with Tylenol at this time. She is tolerating a clear liquid diet will defer interventional radiology when they're comfortable advancing her. At this time she said no further evidence of bleeding I will discontinue her Protonix drip and transition her to by mouth PPI twice a day as she was taking at home previously. We are withholding any further anticoagulation at this time. She'll need outpatient follow-up in IR clinic in 1 month as well as with Dr. Tavo Guillen, now that her gastric varices have been definitively addressed she should follow-up outpatient to have a discussion on whether or not she could resume her anticoagulation. Mild decrease in hemoglobin today suspect is dilutional 2. Paroxysmal atrial fibrillation. Patient was discontinued from her anticoagulation during recent hospitalization due to GI bleed from gastric varices. No longer on Xarelto. Status post pacemaker in 2013. She does not require any rate controlling agent at this time she is normally on propranolol for portal hypertension however she is bradycardic at this time, I would hesitate to restart this. As I mentioned above could consider resumption of anticoagulation the outpatient setting should she not develop any esophageal varices or further rebleeding that would contraindicate this. 3. Hypertension. Propranolol on hold secondary to bradycardia she has been resumed on losartan. 4. Leukocytosis: Resolved Likely reactionary to procedure 6. Insulin-dependent diabetes mellitus type 2. Insulin sliding scale inpatient replacing home metformin and Levemir and Januvia. 7. Iron deficiency anemia. Iron supplement on hold can resume upon discharge 8. History of stroke. Without residual deficits. Patient stable. Continue statin. 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 No active issue 10. Bilateral hearing loss. Wears hearing aid's 11. Hx of Sick sinus syndrome. S/P pacemaker. Please see #2 12. Depression: Stable. Continue sertraline 13. Hyperlipidemia. Continue statin 14. Hypoxia: Mild patient requiring 1 L of O2 she has some bibasilar scattered rales as well as some bilateral hand swelling my suspicion is that she has some mild fluid overload secondary to fluid resuscitation and blood transfusion and multiple drips related to her acute illness. I'll provide with 20 of IV Lasix discontinue fluids and limit drips. She did have a duplex that was positive for an occlusive thrombus in the cephalic vein. This is a superficial vein deep vein supportive measures recommended warm compress to keep elevated no indication for any coagulation DVT prophylaxis: Mechanical. Avoid AC due to acute bleed CODE STATUS: DNR/DNI DISPOSITION: Possible discharge within the next 24-48 hours VS, I&O, 24H, Fishbone Vital Signs/I&O Vital Signs Date Time Temp Pulse Resp B/P (MAP) Pulse Ox O2 Delivery O2 Flow Rate FiO2 05/25/19 08:00 97.5 56 18 148/58 (88) 92 05/25/19 04:00 1.0 05/23/19 19:00 Nasal Cannula I&O- Last 24 Hours up to 6 AM 05/25/19 06:00 Intake Total 1970 ml Output Total 1450 ml Balance 520 ml Laboratory Data 24H LABS Laboratory Tests 2 05/24/19 12:22: Bedside Glucose (Misc Panel) 215H 05/24/19 16:59: Bedside Glucose (Misc Panel) 266H 05/24/19 21:41: Bedside Glucose (Misc Panel) 250H 05/25/19 04:58: Nucleated Red Blood Cells % (auto) 0.0, Anion Gap 6L, Glomerular Filtration Rate > 60.0, Blood Urea Nitrogen 13#, Creatinine 0.71, Sodium Level 139, Potassium Level 3.5, Chloride Level 107, Carbon Dioxide Level 26, Calcium Level 7.5L CBC/BMP Laboratory Tests 05/24/19 11:55 05/25/19 04:58 Red Blood Count 2.90 L, Mean Corpuscular Volume 91.7, Mean Corpuscular Hemoglobin 30.0, Mean Corpuscular Hemoglobin Concent 32.7, Red Cell Distribution Width 17.2 H, Calcium Level 7.5 L Microbiology Microbiology 05/22/19 Blood Culture - Preliminary, Resulted No Growth after 48 hours. All Specime... 05/22/19 Blood Culture - Preliminary, Resulted No Growth after 48 hours. All Specime... ABRAM AUGUSTIN MD May 25, 2019 09:32
[2019-05-25] MEDS: ACETAMINOPHEN TAB 650MG DOSE (2X325MG) PO PRN ×2 (12:32→20:52)
[2019-05-25] MEDS: cefTRIAXone SOD 1 GM in D5W MINI-BAG PLUS 50 ML IV SCH (16:06)
[2019-05-25] MEDS: LOSARTAN 25 MG TAB PO SCH (20:49)
[2019-05-25] MEDS: LEVEMIR (INSULIN DETEMIR) 1 UNITS/0.01ML SC SCH (20:50)
[2019-05-25] MEDS: PANTOPRAZOLE 40MG TAB (PROTONIX) PO SCH (20:50)
[2019-05-25] MEDS: ATORVASTATIN 10 MG TAB PO SCH (20:50)
[2019-05-26 06:00] VITALS: BP 139/57
[2019-05-26 07:01] LABS: HEMATOCRIT 27.6 % (36.0-47.0); MEAN CORPUSCULAR HGB CONC 32.6 g/dl (32.0-36.5); PLATELET COUNT, AUTOMATED 120 10^3/uL (150-450); WHITE BLOOD COUNT 8.1 10^3/uL (4.0-10.0)
[2019-05-26 07:25] LABS: BLOOD UREA NITROGEN 6 MG/DL (7-18); CALCIUM LEVEL 7.7 MG/DL (8.8-10.2); CARBON DIOXIDE LEVEL 29 MEQ/L (21-32); CHLORIDE LEVEL 105 MEQ/L (98-107); CREATININE FOR GFR 0.51 MG/DL (0.55-1.30); GLOMERULAR FILTRATION RATE > 60.0 (>32); GLUCOSE, FASTING 89 MG/DL (70-100); SODIUM LEVEL 140 MEQ/L (136-145)
[2019-05-26] MEDS: HumaLOG INSULIN (NovoLOG) PER UNIT SC SCH ×2 (07:30→12:45)
--- NOTE | 2019-05-26 08:39 | IPNPDOC ---
Text Note Date of Service The patient was seen on 05/26/19. NOTE Patient progressing to soft diet. No further hematemesis. No dizziness. Was SOB over the weekend, diuresed and breathing better. Mobilizing. O/E Vitals stable. Sitting up in bed, looks well. Normal breathing at rest. Abdomen non distended. No pedal edema. Impression: Doing well post gastric varix embolization. Discharge per primary when able. Follow up in IR clinic in 1 month. Thank you for this referral. VS,Neel, I+O VS, Neel, I+O Laboratory Tests 05/26/19 06:25 Red Blood Count 3.00 L, Mean Corpuscular Volume 92.0, Mean Corpuscular Hemoglobin 30.0, Mean Corpuscular Hemoglobin Concent 32.6, Red Cell Distribution Width 17.2 H, Calcium Level 7.7 L Vital Signs Date Time Temp Pulse Resp B/P (MAP) Pulse Ox O2 Delivery O2 Flow Rate FiO2 05/26/19 06:00 98.3 70 15 139/57 (84) 88 05/25/19 12:00 1.0 05/23/19 19:00 Nasal Cannula I&O- Last 24 Hours up to 6 AM 05/26/19 05:59 Intake Total 330 ml Output Total 2250 ml Balance -1920 ml EDGAR OGLESBY MD May 26, 2019 08:39
[2019-05-26] MEDS ORDERED: POTASSIUM CHLORIDE 10 MEQ SR TABLET PO ONE (09:00)
[2019-05-26] MEDS: SERTRALINE HCL 50 MG TAB PO SCH (09:37)
[2019-05-26] MEDS: PANTOPRAZOLE 40MG TAB (PROTONIX) PO SCH (09:37)
[2019-05-26 14:00] VITALS: BP 117/61
--- NOTE | 2019-05-26 15:20 | DS.PDOC ---
Discharge Summary General Date of Admission May 22, 2019 at 14:50 Date of Discharge 05/26/19 Primary Care Physician: ELIESO ALONSO NP Discharge Summary PROCEDURES PERFORMED DURING STAY: BRTO of gastric varices Dr. Zurita - 05/23/19 ADMITTING\DISCHARGE DIAGNOSES: Acute blood loss anemia 2/2 gastric varices Paroxysmal atrial fibrillation. Hypertension Leukocytosis Insulin-dependent diabetes mellitus type 2 Iron deficiency anemia History of stroke Carcinoid tumor of the bowel Bilateral hearing loss Hx of Sick sinus syndrome. Hx Depression Hyperlipidemia Hypoxia 2/2 fluid overload 2/2 fluid resuscitation and blood transfusion COMPLICATIONS/CHIEF COMPLAINT: Ugi Bleed. HISTORY OF PRESENT ILLNESS: An 83 year old white female with a past medical history of hypertension, atrial fibrillation, dyslipidemia, type 2 diabetes, iron deficiency anemia, stroke, thrombocytopenia, carcinoid tumor of bowel, diverticulitis, and sick sinus syndrome presented to the Emergency department with generalized weakness and fatigue. The patient is accompanied by her two daughters who aid in giving a thorough history. Patient states that she began experiencing upper respiratory symptoms on 05/12/19. Her symptoms consisted of productive cough, post nasal drainage, generalized fatigue, vomiting, nausea, dizziness, and weakness. She denies having a fever or chills during this time. She presented to an urgent care clinic on 05/13/19 and was told that her lung bar were clear; they instructed her to buy cepacol cough drops to help with her cough. The patient progressively felt more fatigue and weakness over the next two days to the point where she felt she needed to visit the Emergency department. Her daughters stated that she began looking severely pale two days ago and has lost 6 lbs since 05/12/19. Her daughters also stated that she is usually a very active 83 year old and has been considerably less active over the last four days. The patient states that she has not had much of an appetite but has been drinking fluids on a regular basis. She denies bright red blood per rec niles; her stool is usually dark and she attributes this to taking an iron supplement. She denies fevers, chills, hematuria, hemoptysis, hematemesis, or syncope. HOSPITAL COURSE: This is an 83-year-old female was recently diagnosed with cirrhosis likely secondary 2/2 SORENSEN who was admitted for hematemesis. While she is admitted she was evaluated by intravascular radiology who completed a BRTO on 05/23/19. She tolerated the procedure well. Recommended that she follow-up outpatient whether she should tumor anticoagulation. Propanolol was held as well because she was bradycardic while admitted. The losartan was resumed though because of her hx of hypertension. Remaining of her chronic medical problems were managed with her outpatient medications no additional changes were made. She did well some hypoxia that required 1 L of oxygen which improved after a 20 mg IV Lasix and discontinuation of IV fluids and drips. She did have an ultrasound duplex that showed a positive occlusion of the cephalic vein. No coagulation started for this was a superficial deep vein occlusion. Supportive measures conditions include warm compresses and elevation. The day of discharge she was able to tolerate a meal and was stable to be discharged. DISCHARGE MEDICATIONS: Please see below. ALLERGIES: Please see below. PHYSICAL EXAMINATION ON DISCHARGE: VITAL SIGNS: Please see below. GENERAL: Pleasant 83-year-old female sitting up comfortably on the bed. Speaking in complete sentences with no accessory muscle use in no acute distress. HEENT: Atraumatic normocephalic pupils are equal round and reactive moist mucous membranes with no JVD noted CARDIOVASCULAR EXAMINATION: Normal S1-S2 sounds with a 2/6 pansystolic murmur in the left 2ND intercostal space RESPIRATORY EXAMINATION: Clear to auscultate bilaterally no audible wheezing rales or rhonchi. ABDOMINAL EXAMINATION: Positive bowel sounds in all 4 quadrants. Soft nontender nondistended. EXTREMITIES: No lower extremity edema or clubbing noted. SKIN: No obvious skin breakdown noted. NEUROLOGICAL EXAMINATION: No gross focal deficits noted. LABORATORY DATA: Please see below. IMAGIN05/22/19: Chest x-ray Ill-defined opacity peripherally in the right upper lobe measures about 1.3 cm in diameter, possibly representing a small ill-defined infiltrate or nodule. Left lung is clear. Heart is normal in size. There is calcification of the thoracic aorta. Mediastinal silhouette is unchanged. Left dual lead pacemaker is noted. 05/23/2019 CT abdomen and pelvis: Slightly nodular hepatic surface compatible with cirrhosis. No hepatic masses. Hepatic and splenic calcified granulomas. Gastrosplenic varices. There are no splenorenal varices. There are no gastrorenal varices. There is no ascites. Hysterectomy, cholecystectomy and appendectomy. 05/23/2019 Fluoroscopy BRTO: 1. Renal venogram demonstrates patent renal vein and Gastro renal shunt communicating with gastric varices. 2. Successful balloon occlusive retrograde transvenous obliteration of gastric varices with Gelfoam and coils. 3. Patient to follow up in IR clinic in 1 month. 05/24/2019 Vascular ultrasound:1. No sonographic evidence of deep vein thrombosis. 2. Hypoechoic, occlusive thrombus in the distal left cephalic vein. ACTIVITY: As tolerated. DIET: Consistent carbohydrate DISPOSITION: Home DISCHARGE INSTRUCTIONS: 1. Follow-up with PCP in 7-10 days 2. Follow-up with interventional radiology clinic in one month 3. Continue all medication as prescribed 4. STOP ciprofloxacin 500 mg her to admission 5. Follow-up outpatient to have a discussion on whether or not she could resume her anticoagulation 6. Stop propanolol due to bradycardia, discuss with PCP if would like to resume. 6. If symptoms worsen or return please call your PCP or return to the ER DISCHARGE CONDITION: Stable. I saw and evaluated the patient. I agree with the findings and plan of care as documented in the documenters note. I spent 45 minutes coordinating this patient's discharge. Vital Signs/I&Os Vital Signs Date Time Temp Pulse Resp B/P (MAP) Pulse Ox O2 Delivery O2 Flow Rate FiO2 05/26/19 06:00 98.3 70 15 139/57 (84) 88 05/25/19 12:00 1.0 05/23/19 19:00 Nasal Cannula I&O- Last 24 Hours up to 6 AM 05/26/19 06:00 Intake Total 430 ml Output Total 2250 ml Balance -1820 ml Laboratory Data Labs 24H Laboratory Tests 2 05/25/19 16:46: Bedside Glucose (Misc Panel) 181H 05/25/19 20:20: Bedside Glucose (Misc Panel) 239H 05/26/19 06:25: Nucleated Red Blood Cells % (auto) 0.0, Anion Gap 6L, Glomerular Filtration Rate > 60.0, Blood Urea Nitrogen 6#L, Creatinine 0.51L, Sodium Level 140, Potassium Level 3.0L, Chloride Level 105, Carbon Dioxide Level 29, Calcium Level 7.7L 05/26/19 11:09: Bedside Glucose (Misc Panel) 150H CBC/BMP Laboratory Tests 05/26/19 06:25 Red Blood Count 3.00 L, Mean Corpuscular Volume 92.0, Mean Corpuscular Hemoglobin 30.0, Mean Corpuscular Hemoglobin Concent 32.6, Red Cell Distribution Width 17.2 H, Calcium Level 7.7 L FSBS Laboratory Tests Test 05/25/19 16:46 05/25/19 20:20 05/26/19 11:09 Range/Units Bedside Glucose (Misc Panel) 181 239 150 83-110 MG/DL Microbiology Microbiology 05/22/19 Blood Culture - Preliminary, Resulted No Growth after 72 hours. All specime... 05/22/19 Blood Culture - Preliminary, Resulted No Growth after 72 hours. All specime... Discharge Medications Scheduled Acetaminophen/Diphenhydramine (Acetaminophen Pm Caplet) 1 Each Tablet, 2 TAB PO QHS, (Reported) Atorvastatin Calcium (Atorvastatin Calcium) 10 Mg Tab, 10 MG PO QHS, (Reported) Cholecalciferol (Vitamin D3) (Vitamin D3) 5,000 Unit Capsule, 5,000 UNIT PO DAILY, (Reported) Cyanocobalamin (Cyanocobalamin Injection) 1,000 Mcg/1 Ml Vial, 1,000 MCG IM QMONTH, (Reported) Ferrous Sulfate (Ferrous Sulfate) 325 Mg Tab, 325 MG PO BID, (Reported) Insulin Detemir (Levemir Flextouch) 100 Unit/Ml Inj, 20 UNIT SQ QHS, (Reported) Losartan Potassium (Losartan Potassium) 25 Mg Tablet, 25 MG PO QHS, (Reported) Metformin HCl (Glucophage) 1,000 Mg Tab, 1,000 MG PO DAILY, (Reported) Metformin HCl (Metformin HCl) 1,000 Mg Tablet, 1,500 MG PO QHS, (Reported) Pantoprazole Sodium (Pantoprazole Sodium) 40 Mg Tablet.dr, 40 MG PO BID, (Reported) Sertraline Hcl (Sertraline HCl) 50 Mg Tab, 50 MG PO DAILY, (Reported) Sitagliptin Phosphate (Januvia) 100 Mg Tab, 100 MG PO QHS, (Reported) Vit A/Vit C/Vit E/Zinc/Copper (Icaps Areds Formula Dr Tablet) 1 Tab Tab, 1 TAB PO QHS, (Reported) Allergies Coded Allergies: aspirin (Verified Allergy, Intermediate, Hives, 02/24/19) iodine (Verified Allergy, Intermediate, Hives, 02/24/19) pioglitazone (Verified Allergy, Intermediate, Edema, 02/24/19) TAPE (Unverified Allergy, Unknown, 04/07/10) KIM ORTEZ DO May 26, 2019 15:20 ABRAM AUGUSTIN MD Jun 06, 2019 11:54
== END 2019-05-26 16:25 | disposition home or self-care (01) | DRG 271 ==
LOC: EDBD 12:19 → M ED 12:19 → M ED INP 14:50 → M PCU 20:16 → M MS5PR 05-25 13:24
PROVIDERS: ADMIT Internal Medicine; ATTEND Internal Medicine
PROC: 30233N1 Transfusion of Nonautologous Red Blood Cells into Peripheral Vein, Percutaneous Approach (ICD-10-PCS; principal; 2019-05-22)
PROC: 06L23DZ Occlusion of Gastric Vein with Intraluminal Device, Percutaneous Approach (ICD-10-PCS; 2019-05-23)
PROC: B51 Imaging, Veins, Fluoroscopy (ICD-10-PCS; 2019-05-23)
DX: I86.4 Gastric varices (principal); E87.2 Acidosis; D62 Acute posthemorrhagic anemia; I85.10 Secondary esophageal varices without bleeding; K75.81 Nonalcoholic steatohepatitis (NASH); I10 Essential (primary) hypertension; I48.0 Paroxysmal atrial fibrillation; E78.5 Hyperlipidemia, unspecified; Z86.73 Personal history of transient ischemic attack (TIA), and cerebral infarction without residual deficits; D72.829 Elevated white blood cell count, unspecified; E11.9 Type 2 diabetes mellitus without complications; F32.9 Major depressive disorder, single episode, unspecified; K57.30 Diverticulosis of large intestine without perforation or abscess without bleeding; Z79.899 Other long term (current) drug therapy; Z88.6 Allergy status to analgesic agent; Z88.8 Allergy status to other drugs, medicaments and biological substances; Z95.0 Presence of cardiac pacemaker; I49.5 Sick sinus syndrome; Z87.891 Personal history of nicotine dependence; K74.60 Unspecified cirrhosis of liver; F29 Unspecified psychosis not due to a substance or known physiological condition; H90.3 Sensorineural hearing loss, bilateral

== ENCOUNTER → 2019-05-28 | Outpatient (REF) | payer MEDICARE, OTHER ==
[~2019-05-28] MED LIST changes: +CHOL50002 PO; +PANT-23 PO
[2019-05-28 13:20] LABS: HEMOGLOBIN 10.1 g/dl (12.0-15.5); MEAN CORPUSCULAR HEMOGLOBIN 30.7 pg (27.0-33.0); MEAN CORPUSCULAR HGB CONC 31.6 g/dl (32.0-36.5); MEAN CORPUSCULAR VOLUME 97.3 fl (80.0-96.0); PLATELET COUNT, AUTOMATED 110 10^3/uL (150-450); RED BLOOD COUNT 3.29 10^6/uL (4.00-5.40); WHITE BLOOD COUNT 8.1 10^3/uL (4.0-10.0)
[2019-05-28 13:32] LABS: BLOOD UREA NITROGEN 10 MG/DL (7-18); CALCIUM LEVEL 8.6 MG/DL (8.8-10.2); CARBON DIOXIDE LEVEL 29 MEQ/L (21-32); CHLORIDE LEVEL 103 MEQ/L (98-107); CREATININE FOR GFR 0.62 MG/DL (0.55-1.30); FERRITIN 34 NG/ML (8-252); GLOMERULAR FILTRATION RATE > 60.0 (>32); GLUCOSE, FASTING 124 MG/DL (70-100); POTASSIUM SERUM 4.3 MEQ/L (3.5-5.1); SODIUM LEVEL 140 MEQ/L (136-145)
== END ==
LOC: M SFHCPLAZ 11:04
PROVIDERS: ATTEND Nurse Practitioner Family
DX: D62 Acute posthemorrhagic anemia (principal); E87.6 Hypokalemia
CPT/HCPCS: 36415; 80048; 82728; 85027; 96372; 99496; J3420

== ENCOUNTER → 2019-08-18 | Outpatient (REF) | payer MEDICARE, OTHER ==
[~2019-08-18] MED LIST changes: -GLIM4TAB PO; +GLIM4TAB3 PO
[2019-08-18 11:56] LABS: HEMATOCRIT 42.4 % (36.0-47.0); HEMOGLOBIN 13.7 g/dl (12.0-15.5); MEAN CORPUSCULAR HEMOGLOBIN 29.3 pg (27.0-33.0); MEAN CORPUSCULAR HGB CONC 32.3 g/dl (32.0-36.5); MEAN CORPUSCULAR VOLUME 90.6 fl (80.0-96.0); PLATELET COUNT, AUTOMATED 61 10^3/uL (150-450); RED BLOOD COUNT 4.68 10^6/uL (4.00-5.40); WHITE BLOOD COUNT 3.4 10^3/uL (4.0-10.0)
[2019-08-18 12:16] LABS: ALBUMIN 3.7 GM/DL (3.2-5.2); ALT/SGPT 24 U/L (12-78); BILIRUBIN,TOTAL 0.6 MG/DL (0.2-1.0); BLOOD UREA NITROGEN 22 MG/DL (7-18); CALCIUM LEVEL 9.6 MG/DL (8.8-10.2); CARBON DIOXIDE LEVEL 27 MEQ/L (21-32); CHLORIDE LEVEL 104 MEQ/L (98-107); CHOLESTEROL LEVEL 109 MG/DL (<200); CHOLESTEROL RISK RATIO 2.477 (<5); CREATININE FOR GFR 0.78 MG/DL (0.55-1.30); GLOMERULAR FILTRATION RATE > 60.0 (>32); GLUCOSE, FASTING 124 MG/DL (70-100); HDL CHOLESTEROL 44 MG/DL (>40); LDL CHOLESTEROL 29 MG/DL (<100); NON-HDL-C 65 MG/DL; POTASSIUM SERUM 4.9 MEQ/L (3.5-5.1); SODIUM LEVEL 140 MEQ/L (136-145); TOTAL 25(OH) VITAMIN D 50.7 NG/ML (30.0-100.0); TOTAL PROTEIN 7.1 GM/DL (6.4-8.2); TRIGLYCERIDES LEVEL 180 MG/DL (<150)
[2019-08-18 12:35] LABS: CREATININE, URINE 55.9 MG/DL; MALB URINE SIEMENS 53.7 MG/L
[2019-08-18 12:52] LABS: HEMOGLOBIN A1c 6.9 %
== END ==
LOC: M SFHCPLAZ 08:20
PROVIDERS: ATTEND Nurse Practitioner Family
DX: D69.6 Thrombocytopenia, unspecified (principal); E78.2 Mixed hyperlipidemia; E55.9 Vitamin D deficiency, unspecified

== ENCOUNTER → 2020-02-18 | Outpatient (REF) | payer MEDICARE, OTHER ==
[~2020-02-18] MED LIST changes: -GLIM4TAB3 PO; +GLIM4TAB5 PO
[2020-02-18 11:18] LABS: CREATININE, URINE 86.2 MG/DL
[2020-02-18 11:48] LABS: ALBUMIN 3.8 GM/DL (3.2-5.2); ALT/SGPT 21 U/L (12-78); BLOOD UREA NITROGEN 16 MG/DL (7-18); CALCIUM LEVEL 9.3 MG/DL (8.8-10.2); CARBON DIOXIDE LEVEL 28 MEQ/L (21-32); CHLORIDE LEVEL 104 MEQ/L (98-107); CREATININE FOR GFR 0.79 MG/DL (0.55-1.30); GLOMERULAR FILTRATION RATE > 60.0 (>32); GLUCOSE, FASTING 142 MG/DL (70-100); POTASSIUM SERUM 4.6 MEQ/L (3.5-5.1); SODIUM LEVEL 139 MEQ/L (136-145); TOTAL PROTEIN 7.1 GM/DL (6.4-8.2)
[2020-02-18 11:54] LABS: TOTAL 25(OH) VITAMIN D 45.3 NG/ML (30.0-100.0)
[2020-02-18 12:55] LABS: HEMOGLOBIN A1c 6.6 %
== END ==
LOC: M PLALAB 09:09
PROVIDERS: ATTEND Nurse Practitioner Family
DX: E11.9 Type 2 diabetes mellitus without complications (principal); E55.9 Vitamin D deficiency, unspecified

== ENCOUNTER 2020-06-23 10:17 | Observation (INO) | payer MEDICARE, BC, OTHER ==
[~2020-06-23] VITALS: Ht 167.6 cm; Wt 67.9 kg
[~2020-06-23 10:17] MED LIST changes: +ASCO250T20 PO; +PANT40TA29 PO; -PANT40TA3 PO; -VITA1TAB23 PO
[2020-06-23] MEDS ORDERED: XARE15TA PO (10:25)
[2020-06-23] MEDS ORDERED: PANTOPRAZOLE 40MG VIAL (C9113 PER 1) IV ONE (11:15)
[2020-06-23] MEDS ORDERED: NS 1,000 ML IV ONE (11:15)
[2020-06-23 11:38] LABS: BASO % 0.2 % (0.0-1.0); EOS # 0.1 10^3/uL (0.0-0.5); HEMATOCRIT 35.7 % (36.0-47.0); HEMOGLOBIN 11.4 g/dl (12.0-15.5); LYMPH % 17.4 % (24.0-44.0); MEAN CORPUSCULAR HEMOGLOBIN 29.5 pg (27.0-33.0); MEAN CORPUSCULAR HGB CONC 31.9 g/dl (32.0-36.5); MEAN CORPUSCULAR VOLUME 92.5 fl (80.0-96.0); MONO # 0.6 10^3/uL (0.0-0.8); MONO % 9.9 % (0.0-5.0); NEUTROPHILS # 4.2 10^3/uL (1.5-8.5); NEUTROPHILS % 71.3 % (36.0-66.0); RED BLOOD COUNT 3.86 10^6/uL (4.00-5.40); WHITE BLOOD COUNT 5.9 10^3/uL (4.0-10.0)
[2020-06-23 11:42] LABS: INR 1.32; PROTHROMBIN TIME 16.7 SECONDS (11.8-14.0)
[2020-06-23 11:43] LABS: PARTIAL THROMBOPLASTIN TIME 33.6 SECONDS (25.0-38.4)
[2020-06-23 11:45] LABS: PLATELET COUNT, AUTOMATED 66 10^3/uL (150-450)
[2020-06-23 12:09] LABS: ALBUMIN 3.6 GM/DL (3.2-5.2); ALT/SGPT 19 U/L (12-78); BILIRUBIN,DIRECT 0.3 MG/DL (0.0-0.2); BILIRUBIN,TOTAL 1.1 MG/DL (0.2-1.0); BLOOD UREA NITROGEN 17 MG/DL (7-18); CALCIUM LEVEL 9.1 MG/DL (8.8-10.2); CARBON DIOXIDE LEVEL 29 MEQ/L (21-32); CHLORIDE LEVEL 102 MEQ/L (98-107); CREATININE FOR GFR 0.81 MG/DL (0.55-1.30); GLOMERULAR FILTRATION RATE > 60.0 (>32); GLUCOSE, FASTING 135 MG/DL (70-100); POTASSIUM SERUM 4.1 MEQ/L (3.5-5.1); SODIUM LEVEL 138 MEQ/L (136-145); TOTAL PROTEIN 7.1 GM/DL (6.4-8.2)
[2020-06-23] MEDS ORDERED: ACET25TA12 PO (12:59)
[2020-06-23] MEDS ORDERED: VITA500075 PO (12:59)
--- NOTE | 2020-06-23 15:22 | HPEPDOC ---
General Date of Admission Date of Service: Jun 23, 2020 Chief Complaint The patient is a 84-year-old female admitted with a reason for visit of Vomiting. History of Present Illness 84 YO WF with PMhx of multiple problems including DM Type II,Arthritis,HTN,Afib,PPM developed one episode of bright red vomating with food yesterday at lunch time and had been asymptomatic afterwards. Denies N/V or abdominal pain, no dark stools, no more hemetemesis. Pt came to be checked out, she does take Xarelto for A-fib, which her daughter stopped yesterday. Home Medications Scheduled Acetaminophen/Diphenhydramine (Acetaminophen Pm Caplet) 1 Each Tablet, 2 TAB PO QHS, (Reported) Atorvastatin Calcium (Atorvastatin Calcium) 10 Mg Tab, 10 MG PO QHS, (Reported) Cholecalciferol (Vitamin D3) (Vitamin D3) 125 Mcg Capsule, 5,000 UNITS PO DAILY, (Reported) Cyanocobalamin (Cyanocobalamin Injection) 1,000 Mcg/1 Ml Vial, 1,000 MCG IM QMONTH, (Reported) Ferrous Sulfate (Ferrous Sulfate) 325 Mg Tab, 325 MG PO BID, (Reported) Insulin Detemir (Levemir Flextouch) 100 Unit/Ml Inj, 20 UNIT SQ QHS, (Reported) Losartan Potassium (Losartan Potassium) 25 Mg Tablet, 25 MG PO QHS, (Reported) Metformin HCl (Glucophage) 1,000 Mg Tab, 1,000 MG PO BID, (Reported) Pantoprazole Sodium (Pantoprazole Sodium) 40 Mg Tablet.dr, 40 MG PO BID, (Reported) Rivaroxaban (Xarelto) 15 Mg Tablet, 15 MG PO QHS, (Reported) Sertraline Hcl (Sertraline HCl) 50 Mg Tab, 50 MG PO DAILY, (Reported) Sitagliptin Phosphate (Januvia) 100 Mg Tab, 100 MG PO QHS, (Reported) Vit A/Vit C/Vit E/Zinc/Copper (Icaps Areds Formula Dr Tablet) 1 Tab Tab, 1 TAB PO QHS, (Reported) Allergies Coded Allergies: aspirin (Verified Allergy, Intermediate, Hives, 02/24/19) iodine (Verified Allergy, Intermediate, Hives, 02/24/19) pioglitazone (Verified Allergy, Intermediate, Edema, 02/24/19) TAPE (Unverified Allergy, Unknown, 04/07/10) Past Medical History Medical History TYPE II DM - ON INSULIN ARTHRITIS HYPERTENSION VITAMIN D DEFICIENCY RECTAL CANCER HYPERLIPIDEMIA BILATERAL HEARING DEFICIT - WEARS HEARING AIDS A FIB 03/2014 - [facility] VITAMIN B12 DEFICIENCY 02/2015 - STARTED B12 INJECTIONS WITH IMPROVEMENT CVA, 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 REAL 09/29/10 COLON RESECTION/ LEFT URETERAL STENT FOR BLADDER/RECTAL FISTULA REPAIR 11/24/10 TRANSANALENDOSOPY ANAL TUMOR 08-08 RECTAL CARCINOID TUMOR - DR LACEY 08/25/11 PACEMAKER A FIB 04-16-14 BRTO 05/23/19 Family History FATHER: , CAD MOTHER: , DIABETES SIBLINGS: , DIABETES, CAD PATERNAL GRAND FATHER: CAD PATERNAL GRAND MOTHER: DIABETES MATERNAL GRAND MOTHER: DIABETES MATERNAL UNCLE: DIABETES MATERNAL AUNT: DIABETES Social History * Smoker: Denies Alcohol: Denies Drugs: denies A-FIB/CHADSVASC A-FIB History Current/History of A-Fib/PAF?: Yes Current PO Anticoag Therapy: Yes Review of Systems Constitutional: Denies: Chills, Fever, Malaise, Night Sweats, Weakness, Fatigue, Weight Loss, Lethargy, Other Eyes: Denies: Pain, Vision change, Conjunctivae inflammation, Eyelid inflammation, Redness, Other ENT: Denies: Head Aches, Ear Pain, Dysphagia, Sinus Congestion, Post Nasal Drip, Sore Throat, Epistaxis, Other Symptoms Skin: Denies: Rash, Lesions, Jaundice, Bruising, Itching, Dry, Breakdown, Nail Changes, Other Pulmonary: Denies: Dyspnea, Cough, Pleuritic Chest Pain, Other Symptoms Cardiovascular: Denies: Chest Pain, Palpitations, Orthopnea, Paroxysmal Noc. Dyspnea, Edema, Lt Headedness, Other Symptoms Gastrointestinal: Reports: Other Symptoms (hemetemesis) Genitourinary: Denies: Dysuria, Frequency, Incontinence, Hematuria, Retention, Other Symptoms Hematologic: Denies: Bruising, Bleeding Excessively, Petecchia, Purpura, Enlarged Lymph Nodes, Other Hematologic Endocrine: Denies: Polydipsia, Polyphagia, Polyuria, Heat Intolerance, Cold Intolerance, Other Endocrine Sx Musculoskeletal: Denies: Neck Pain, Back Pain, Shoulder Pain, Arm Pain, Hand Pain, Leg Pain, Foot Pain, Joint Pain, Muscle Pain, Spasms, Other Symptoms Neurological: Denies: Weakness, Numbness, Incoordination, Change in speech, Confusion, Seizures, Other Symptoms Psych: Denies: Mood Normal, Anxiety, Depression, Memory Issues, Thoughts of Self Harm, Anger, Thoughts of Harming Other, Other Psych Physical Examination General Exam: Positive: Alert, Cooperative Eye Exam: Positive: PERRLA, Conjunctiva & lids normal ENT Exam: Positive: Atraumatic Neck Exam: Positive: Supple Chest Exam: Positive: Clear to auscultation Heart Exam: Positive: Normal S1, Normal S2 Abdomen Exam: Positive: Normal bowel sounds Extremity Exam: Positive: Normal pulses Skin Exam: Positive: Nl turgor and temperature Neuro Exam: Positive: Strength at 5/5 X4 ext, Cranial Nerves 3-12 NL Psych Exam: Positive: Mood NL, Oriented x 3 Vital Signs Vital Signs Date Time Temp Pulse Resp B/P (MAP) Pulse Ox O2 Delivery O2 Flow Rate FiO2 06/23/20 14:30 60 18 167/76 (106) 96 Room Air 06/23/20 10:18 97.1 Laboratory Data Labs 24H Laboratory Tests 2 06/23/20 11:10: Immature Granulocyte % (Auto) 0.2, Neutrophils (%) (Auto) 71.3H, Lymphocytes (%) (Auto) 17.4L, Monocytes (%) (Auto) 9.9H, Eosinophils (%) (Auto) 1.0, Basophils (%) (Auto) 0.2, Neutrophils # (Auto) 4.2, Lymphocytes # (Auto) 1.0L, Monocytes # (Auto) 0.6, Eosinophils # (Auto) 0.1, Basophils # (Auto) 0.0, Nucleated Red Blood Cells % (auto) 0.0, Immature Platelet Fraction 5.9, Prothrombin Time 16.7H, Prothromb Time International Ratio 1.32, Activated Partial Thromboplast Time 33.6, Anion Gap 7L, Glomerular Filtration Rate > 60.0, Calcium Level 9.1, Total Bilirubin 1.1H, Direct Bilirubin 0.3H, Aspartate Amino Transf (AST/SGOT) 28, Alanine Aminotransferase (ALT/SGPT) 19, Alkaline Phosphatase 50, Total P rotein 7.1, Albumin 3.6, Albumin/Globulin Ratio 1.0L CBC/BMP Laboratory Tests 06/23/20 11:10 Problems (1) GI bleed Status: Acute Problem Text: admit pt to med/surg with tele Pt has been asymptomatic since one episode yesterday H/H stable Admitted for observation as per ED's recommendation Discussed with pt's daughter about the plan and she agreed Pt will possibly DC home tomorrow if she remain asymptomatic and H/H remains stable Protonix 40 mg PO daily Hold Xarelto- risks out weight benefits, pts daughter agreed with holding anti coagulation, pt wants me to speak and concurr with her daughter. Further W/U can be done as out pt, once discharged (2) Thrombocytopenia Status: Acute Problem Text: secondary to underlying liver disease Monitor platelets Plan / VTE VTE Prophylaxis Ordered?: Yes VTE Exclusion Pharmacological: Thrombocytopenia AKIL POWER MD Jun 23, 2020 15:22
[2020-06-23] MEDS ORDERED: ACETAMINOPHEN TAB 650MG DOSE (2X325MG) PO PRN (15:30)
[2020-06-23] MEDS ORDERED: MAALOX 30 ML SUSP *UDC PO PRN (15:30)
[2020-06-23] MEDS ORDERED: DEXTROSE 50% 50 ML SYRINGE IV PRN (15:45)
[2020-06-23] MEDS ORDERED: GLUCOSE 4GM CHEW TABLET PO PRN (15:45)
[2020-06-23] MEDS ORDERED: GLUCAGON INJ 1MG VIAL SC PRN (15:45)
[2020-06-23] MEDS: NS 1,000 ML IV SCH (15:55)
[2020-06-23] MEDS: HumaLOG INSULIN (NovoLOG) PER UNIT SC SCH (17:30)
[2020-06-23] MEDS ORDERED: RIVAROXABAN 15 MG TAB (XARELTO) PO SCH (18:00)
[2020-06-23 18:02] VITALS: BP 150/70
[2020-06-23] MEDS: metFORMIN (GLUCOPHAGE) 1000 MG TABLET PO SCH (18:15)
[2020-06-23] MEDS ORDERED: SITagliptin 50 MG TAB (JANUVIA) PO SCH (21:00)
[2020-06-23] MEDS ORDERED: LOSARTAN 25 MG TAB PO SCH (21:00)
[2020-06-23] MEDS ORDERED: ATORVASTATIN 10 MG TAB PO SCH (21:00)
[2020-06-23] MEDS ORDERED: HumaLOG INSULIN (NovoLOG) PER UNIT SC SCH (21:00)
[2020-06-23] MEDS: FERROUS SULFATE 325MG TAB PO SCH (21:07)
[2020-06-23 21:08] VITALS: BP 150/70
[2020-06-23] MEDS: PANTOPRAZOLE 40MG TAB (PROTONIX) PO SCH (21:08)
[2020-06-23 22:00] VITALS: BP 149/68
[2020-06-24] MEDS: NS 1,000 ML IV SCH (04:16)
[2020-06-24 06:00] VITALS: BP 150/68
[2020-06-24 06:52] LABS: BASO % 0.3 % (0.0-1.0); EOS # 0.1 10^3/uL (0.0-0.5); EOS % 2.2 % (0.0-3.0); HEMATOCRIT 32.4 % (36.0-47.0); HEMOGLOBIN 10.9 g/dl (12.0-15.5); LYMPH # 0.6 10^3/uL (1.5-5.0); LYMPH % 16.3 % (24.0-44.0); MEAN CORPUSCULAR HEMOGLOBIN 30.8 pg (27.0-33.0); MEAN CORPUSCULAR HGB CONC 33.6 g/dl (32.0-36.5); MEAN CORPUSCULAR VOLUME 91.5 fl (80.0-96.0); MONO # 0.4 10^3/uL (0.0-0.8); MONO % 11.8 % (0.0-5.0); NEUTROPHILS # 2.5 10^3/uL (1.5-8.5); NEUTROPHILS % 69.1 % (36.0-66.0); RED BLOOD COUNT 3.54 10^6/uL (4.00-5.40); WHITE BLOOD COUNT 3.6 10^3/uL (4.0-10.0)
[2020-06-24 06:53] LABS: PLATELET COUNT, AUTOMATED 60 10^3/uL (150-450)
[2020-06-24 07:20] LABS: ALBUMIN 3.1 GM/DL (3.2-5.2); ALT/SGPT 15 U/L (12-78); BILIRUBIN,TOTAL 0.8 MG/DL (0.2-1.0); BLOOD UREA NITROGEN 14 MG/DL (7-18); CALCIUM LEVEL 8.3 MG/DL (8.8-10.2); CARBON DIOXIDE LEVEL 26 MEQ/L (21-32); CHLORIDE LEVEL 109 MEQ/L (98-107); CREATININE FOR GFR 0.71 MG/DL (0.55-1.30); GLOMERULAR FILTRATION RATE > 60.0 (>32); GLUCOSE, FASTING 126 MG/DL (70-100); POTASSIUM SERUM 4.2 MEQ/L (3.5-5.1); SODIUM LEVEL 142 MEQ/L (136-145)
[2020-06-24] MEDS: HumaLOG INSULIN (NovoLOG) PER UNIT SC SCH (07:51)
[2020-06-24] MEDS ORDERED: SERTRALINE HCL 50 MG TAB PO SCH (09:00)
[2020-06-24] MEDS: FERROUS SULFATE 325MG TAB PO SCH (09:05)
[2020-06-24] MEDS: metFORMIN (GLUCOPHAGE) 1000 MG TABLET PO SCH (09:05)
[2020-06-24] MEDS: PANTOPRAZOLE 40MG TAB (PROTONIX) PO SCH (09:05)
--- NOTE | 2020-06-24 13:56 | DS.PDOC ---
Discharge Summary General Date of Admission Jun 23, 2020 at 10:18 Date of Discharge 06/24/20 Discharge Summary PROCEDURES PERFORMED DURING STAY: [None]. ADMITTING DIAGNOSES: 1. [GI Bleed]. DISCHARGE DIAGNOSES: 1. [Anemia due to acute blood loss,GI Bleed,DM-Type II,HTN,Afib,PPM,Hx of varices,thrombocytopenia]. COMPLICATIONS/CHIEF COMPLAINT: Gi Bleed. HISTORY OF PRESENT ILLNESS: [84 YO WF with PMhx of multiple problems including DM Type II,Arthritis,HTN,Afib,PPM developed one episode of bright red vomating with food yesterday at lunch time and had been asymptomatic afterwards. Denies N/V or abdominal pain, no dark stools, no more hemetemesis. Pt came to be checked out, she does take Xarelto for A-fib, which her daughter stopped yesterday.]. HOSPITAL COURSE: [ Pt was admitted to med/surg with tele Pt has been asymptomatic since one episode yesterday H/H stable, hgb on DcC 10.9/32.4 Admitted for observation as per ED's recommendation Discussed with pt's daughter about the plan and she agreed pt will be Dc home today as she has remained asymptomatic since admission. Protonix 40 mg PO daily has been added to her meds Hold Xarelto- risks out weight benefits, pts daughter agreed with holding anti coagulation, pt wants me to speak and concurr with her daughter. 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 DISCHARGE MEDICATIONS: Please see below. ALLERGIES: Please see below. PHYSICAL EXAMINATION ON DISCHARGE: VITAL SIGNS: Please see below. GENERAL: [WNL] HEENT: [DIONY/EOMI] NECK: [Supple] CARDIOVASCULAR EXAMINATION: [S1S2 regular] RESPIRATORY EXAMINATION: [Clear to A&P] ABDOMINAL EXAMINATION: [benign] EXTREMITIES: [No CCE] SKIN: [NL] NEUROLOGICAL EXAMINATION: [No focal motor or sensory deficit] PSYCHIATRIC EXAMINATION: [NL] LABORATORY DATA: Please see below. IMAGING: [None] PROGNOSIS: [good] ACTIVITY: [As tolerated]. DIET: [as tolerated] DISCHARGE PLAN: [Home] DISPOSITION: Home, Self-Care. DISCHARGE INSTRUCTIONS: 1. [as per DC instructions]. ITEMS TO FOLLOWUP ON ON OUTPATIENT: 1. [F/U with PCP,GI and cardiology in 1-2 weeks]. DISCHARGE CONDITION: [Stable]. TIME SPENT ON DISCHARGE: 38 minutes. Vital Signs/I&Os Vital Signs Date Time Temp Pulse Resp B/P (MAP) Pulse Ox O2 Delivery O2 Flow Rate FiO2 06/24/20 06:00 97.8 61 18 150/68 (95) 95 Room Air I&O- Last 24 Hours up to 6 AM 06/24/20 06:00 Intake Total 1880 ml Output Total 0 ml Balance 1880 ml Laboratory Data Labs 24H Laboratory Tests 2 06/23/20 17:10: Lactic Acid Level 1.2 06/24/20 06:25: Immature Granulocyte % (Auto) 0.3, Neutrophils (%) (Auto) 69.1H, Lymphocytes (%) (Auto) 16.3L, Monocytes (%) (Auto) 11.8H, Eosinophils (%) (Auto) 2.2, Basophils (%) (Auto) 0.3, Neutrophils # (Auto) 2.5, Lymphocytes # (Auto) 0.6L, Monocytes # (Auto) 0.4, Eosinophils # (Auto) 0.1, Basophils # (Auto) 0.0, Nucleated Red Blood Cells % (auto) 0.0, Anion Gap 7L, Glomerular Filtration Rate > 60.0, Calcium Level 8.3L, Total Bilirubin 0.8, Aspartate Amino Transf (AST/SGOT) 23, Alanine Aminotransferase (ALT/SGPT) 15, Alkaline Phosphatase 44L, Total Protein 6.0L, Albumin 3.1L, Albumin/Globulin Ratio 1.1L CBC/BMP Laboratory Tests 06/24/20 06:25 Discharge Medications Scheduled Acetaminophen/Diphenhydramine (Acetaminophen Pm Caplet) 1 Each Tablet, 2 TAB PO QHS, (Reported) Atorvastatin Calcium (Atorvastatin Calcium) 10 Mg Tab, 10 MG PO QHS, (Reported) Cholecalciferol (Vitamin D3) (Vitamin D3) 125 Mcg Capsule, 5,000 UNITS PO DAILY, (Reported) Cyanocobalamin (Cyanocobalamin Injection) 1,000 Mcg/1 Ml Vial, 1,000 MCG IM QMONTH, (Reported) Ferrous Sulfate (Ferrous Sulfate) 325 Mg Tab, 325 MG PO BID, (Reported) Insulin Detemir (Levemir Flextouch) 100 Unit/Ml Inj, 20 UNIT SQ QHS, (Reported) Losartan Potassium (Losartan Potassium) 25 Mg Tablet, 25 MG PO QHS, (Reported) Metformin HCl (Glucophage) 1,000 Mg Tab, 1,000 MG PO BID, (Reported) Pantoprazole Sodium (Pantoprazole Sodium) 40 Mg Tablet.dr, 40 MG PO BID, (Reported) Sertraline Hcl (Sertraline HCl) 50 Mg Tab, 50 MG PO DAILY, (Reported) Sitagliptin Phosphate (Januvia) 100 Mg Tab, 100 MG PO QHS, (Reported) Vit A/Vit C/Vit E/Zinc/Copper (Icaps Areds Formula Dr Tablet) 1 Tab Tab, 1 TAB PO QHS, (Reported) Allergies Coded Allergies: aspirin (Verified Allergy, Intermediate, Hives, 02/24/19) iodine (Verified Allergy, Intermediate, Hives, 02/24/19) pioglitazone (Verified Allergy, Intermediate, Edema, 02/24/19) TAPE (Unverified Allergy, Unknown, 04/07/10) AKIL POWER MD Jun 24, 2020 13:56
[2020-08-12] MEDS ORDERED: DERM1TAB2 PO (15:13)
[2020-08-12] MEDS ORDERED: LOSA50TA88 PO (15:13)
== END 2020-06-24 12:25 | disposition home or self-care (01) ==
LOC: M ED 10:17 → M ED INP 10:18 → UNDOADMOB 15:25 → INTOOBSV 15:25 → ENRESERV 17:01 → M MSPAV 18:03
PROVIDERS: ADMIT Internal Medicine; ATTEND Internal Medicine
DX: D62 Acute posthemorrhagic anemia (principal); K92.2 Gastrointestinal hemorrhage, unspecified; E11.9 Type 2 diabetes mellitus without complications; E55.9 Vitamin D deficiency, unspecified; D51.9 Vitamin B12 deficiency anemia, unspecified; I10 Essential (primary) hypertension; I48.91 Unspecified atrial fibrillation; Z79.01 Long term (current) use of anticoagulants; Z88.8 Allergy status to other drugs, medicaments and biological substances; E78.2 Mixed hyperlipidemia; D69.6 Thrombocytopenia, unspecified; Z79.84 Long term (current) use of oral hypoglycemic drugs; Z79.4 Long term (current) use of insulin; Z79.899 Other long term (current) drug therapy; Z86.73 Personal history of transient ischemic attack (TIA), and cerebral infarction without residual deficits
CPT/HCPCS: 36415; 80048; 80053; 80076; 83605; 85025; 85049; 85055; 85610; 85730; 86850; 86900; 86901; 93041; 94760; 96361; 96374; 99285; C9113; G0378

== ENCOUNTER → 2020-07-09 | Outpatient (REF) | payer MEDICARE, OTHER ==
[~2020-07-09] MED LIST changes: +DERM1TAB2 PO; +VITA500075 PO; +XARE15TA PO
[2020-07-09 13:49] LABS: ALBUMIN 3.4 GM/DL (3.2-5.2); ALT/SGPT 24 U/L (12-78); BILIRUBIN,TOTAL 0.7 MG/DL (0.2-1.0); BLOOD UREA NITROGEN 18 MG/DL (7-18); CALCIUM LEVEL 8.9 MG/DL (8.8-10.2); CARBON DIOXIDE LEVEL 27 MEQ/L (21-32); CHLORIDE LEVEL 104 MEQ/L (98-107); CREATININE FOR GFR 0.81 MG/DL (0.55-1.30); GLOMERULAR FILTRATION RATE > 60.0 (>32); GLUCOSE, FASTING 172 MG/DL (70-100); POTASSIUM SERUM 4.2 MEQ/L (3.5-5.1); SODIUM LEVEL 139 MEQ/L (136-145)
[2020-07-09 13:55] LABS: TOTAL 25(OH) VITAMIN D 32.1 NG/ML (30.0-100.0)
[2020-07-09 15:49] LABS: HEMOGLOBIN A1c 6.4 %
== END ==
LOC: M SFHCPLAZ 12:06
PROVIDERS: ATTEND Nurse Practitioner Family
DX: E55.9 Vitamin D deficiency, unspecified (principal); E11.9 Type 2 diabetes mellitus without complications; I10 Essential (primary) hypertension

== ENCOUNTER → 2020-12-07 | Outpatient (REF) | payer MEDICARE, OTHER ==
[2020-12-07 14:54] LABS: ALBUMIN 3.8 GM/DL (3.2-5.2); ALT/SGPT 21 U/L (12-78); BILIRUBIN,TOTAL 0.7 MG/DL (0.2-1.0); BLOOD UREA NITROGEN 22 MG/DL (7-18); CALCIUM LEVEL 9.5 MG/DL (8.8-10.2); CARBON DIOXIDE LEVEL 28 MEQ/L (21-32); CHLORIDE LEVEL 102 MEQ/L (98-107); CHOLESTEROL LEVEL 100 MG/DL (<200); CHOLESTEROL RISK RATIO 2.127 (<5); CREATININE FOR GFR 0.83 MG/DL (0.55-1.30); GLOMERULAR FILTRATION RATE > 60.0 (>32); GLUCOSE, FASTING 138 MG/DL (70-100); HDL CHOLESTEROL 47 MG/DL (>40); LDL CHOLESTEROL 18 MG/DL (<100); NON-HDL-C 53 MG/DL; POTASSIUM SERUM 4.6 MEQ/L (3.5-5.1); SODIUM LEVEL 138 MEQ/L (136-145); TOTAL PROTEIN 7.5 GM/DL (6.4-8.2); TRIGLYCERIDES LEVEL 174 MG/DL (<150)
[2020-12-07 15:44] LABS: HEMOGLOBIN A1c 6.5 %
== END ==
LOC: M SFHCPLAZ 11:44
PROVIDERS: ATTEND Nurse Practitioner Family
DX: E78.2 Mixed hyperlipidemia (principal); I10 Essential (primary) hypertension; E11.9 Type 2 diabetes mellitus without complications
CPT/HCPCS: 36415; 80053; 80061; 83036; 96372; G0463; J3420

== ENCOUNTER → 2020-12-10 | Outpatient (REF) | payer MEDICARE, OTHER ==
[2020-12-10 11:11] LABS: CREATININE, URINE 64.7 MG/DL; MALB URINE SIEMENS 58.4 MG/L; MAU/CREAT RATIO 90.2 MCG/MG (0.0-30.0)
== END ==
LOC: M SFHCPLAZ 09:39
PROVIDERS: ATTEND Nurse Practitioner Family
DX: I10 Essential (primary) hypertension (principal)

== ENCOUNTER → 2021-05-16 | Outpatient (REF) | payer MEDICARE, BC, OTHER ==
[~2021-05-16] MED LIST changes: +METF-877 PO
[2021-05-16 14:15] LABS: HEMOGLOBIN A1c 6.8 %
== END ==
LOC: M LAB REF 13:21
PROVIDERS: ATTEND Nurse Practitioner Family
DX: E11.9 Type 2 diabetes mellitus without complications (principal)

== ENCOUNTER 2021-07-07 12:56 | Emergency (ER) | payer MEDICARE, BC, OTHER ==
[~2021-07-07] VITALS: Ht 165.1 cm; Wt 141.0 kg
[2021-07-07] MEDS ORDERED: NS 1,000 ML IV ONE (17:55)
[2021-07-07] MEDS ORDERED: diphenhydrAMINE 50MG/ML VIAL (J1200) IV STA (18:12)
[2021-07-07] MEDS ORDERED: methylPREDNISolone 125MG 2ML VIAL IV ONE (18:15)
[2021-07-07 19:18] LABS: BASO % 0.1 % (0.0-1.0); EOS # 0.1 10^3/uL (0.0-0.5); HEMATOCRIT 39.3 % (36.0-47.0); HEMOGLOBIN 12.8 g/dl (12.0-15.5); LYMPH # 0.7 10^3/uL (1.5-5.0); LYMPH % 8.4 % (24.0-44.0); MEAN CORPUSCULAR HGB CONC 32.6 g/dl (32.0-36.5); MEAN CORPUSCULAR VOLUME 95.2 fl (80.0-96.0); MONO # 0.8 10^3/uL (0.0-0.8); MONO % 9.3 % (2.0-8.0); NEUTROPHILS # 6.6 10^3/uL (1.5-8.5); NEUTROPHILS % 80.7 % (36.0-66.0); RED BLOOD COUNT 4.13 10^6/uL (4.00-5.40); WHITE BLOOD COUNT 8.2 10^3/uL (4.0-10.0)
[2021-07-07 19:19] LABS: PLATELET COUNT, AUTOMATED 94 10^3/uL (150-450)
[2021-07-07 19:28] LABS: INR 1.3; PROTHROMBIN TIME 16.6 SECONDS (12.7-14.5)
[2021-07-07 19:29] LABS: PARTIAL THROMBOPLASTIN TIME 47.5 SECONDS (25.9-37.0)
[2021-07-07 19:45] LABS: ALT/SGPT 17 U/L (12-78); BILIRUBIN,DIRECT 0.6 MG/DL (0.0-0.2); BILIRUBIN,TOTAL 1.2 MG/DL (0.2-1.0); CK-MB VALUE MASS < 1.0 NG/ML (<3.6); CPK CREATINE PHOSPHOKINASE 29 U/L (26-192); LIPASE 75 U/L (73-393); MB/CK RELATIVE INDEX 3.45 (< OR =4); TOTAL PROTEIN 7.2 GM/DL (6.4-8.2); TROPONIN I < 0.02 NG/ML (< 0.10)
[2021-07-07] MEDS ORDERED: ISOVUE-370 76% 100ML VIAL As Ordered ONE (19:45)
--- NOTE | 2021-07-07 21:54 | REPVR ---
PROCEDURE INFORMATION: Exam: CT Abdomen And Pelvis With Contrast Exam date and time: 07/07/2021 7:55 PM Age: 85 years old Clinical indication: Abdominal pain; Localized; Right lower quadrant (rlq); Additional info: Rlq pain TECHNIQUE: Imaging protocol: Computed tomography of the abdomen and pelvis with contrast. Radiation optimization: All CT scans at this facility use at least one of these dose optimization techniques: automated exposure control; mA and/or kV adjustment per patient size (includes targeted exams where dose is matched to clinical indication); or iterative reconstruction. Contrast material: ISOVUE 370; Contrast volume: 100 ml; Contrast route: INTRAVENOUS (IV); COMPARISON: CT ABD/PEL W/IV CONTRAST ONLY 05/23/2019 12:16 PM FINDINGS: Pleural spaces: No pneumonia or pleural effusions at the lung bases. Liver: Calcifications throughout the liver and spleen possibly due to old granulomatous disease. Gallbladder and bile ducts: Normal. No calcified stones. No ductal dilation. Pancreas: Pancreas appears atrophic. Spleen: Splenomegaly measuring 18 cm in length previously measuring 16 cm in length. There are either multiple splenules a or lymph nodes along the anterior margin of the spleen. These were also present on the prior study. Adrenal glands: See "Vasculature" finding. Kidneys and ureters: The kidneys are unremarkable other than a left renal cortical cyst which measures 2.2 cm and is unchanged. No further follow-up required. Stomach and bowel: There is no evidence of intestinal obstruction. There is thickening of the ascending colonic wall and a small amount of fluid in the right pericolic gutter along the inferior margin of the posterior segment of the right hepatic lobe. Appendix: The appendix is not identified. Intraperitoneal space: Fluid in the right paracolic gutter. Vasculature: There is a metallic device in in the region of the left adrenal gland which could represent multiple coils perhaps in a prior splenic artery aneurysm. The left adrenal gland appears enlarged as is the right but both are stable in comparison to the 05/23/2019 CT. There is no evidence of an infrarenal abdominal aortic aneurysm. There is moderate to severe atherosclerotic calcification. Lymph nodes: See "Spleen" finding. Urinary bladder: The bladder is unremarkable. Reproductive: Hysterectomy. Bones/joints: Marked skeletal degeneration. Soft tissues: Unremarkable. IMPRESSION: Marked thickening of the cecal wall as well as the ascending colon which may be due to colitis although carcinoma is within the differential. There is adjacent fluid surrounding the inferior margin of the posterior segment of the right hepatic lobe and paracolic gutter. Electronically signed by: Gayla Gonzalez On 07/07/2021 21:53:45 PM
[2021-07-07] MEDS ORDERED: MACR100C43 PO (22:39)
[2021-07-07 23:12] VITALS: BP 138/70
--- NOTE | 2021-07-08 12:28 | ED PDOC ---
Post-Departure Follow-Up arcelia pearce faxed formal report of ct abd/p for fu Roger Phan MD Jul 08, 2021 12:28
== END 2021-07-07 23:15 | disposition home or self-care (01) ==
LOC: M ED 12:56
DX: R93.3 Abnormal findings on diagnostic imaging of other parts of digestive tract (principal); N39.0 Urinary tract infection, site not specified; E11.9 Type 2 diabetes mellitus without complications; I10 Essential (primary) hypertension; E78.5 Hyperlipidemia, unspecified; Z86.73 Personal history of transient ischemic attack (TIA), and cerebral infarction without residual deficits; F32.9 Major depressive disorder, single episode, unspecified; K57.92 Diverticulitis of intestine, part unspecified, without perforation or abscess without bleeding; Z87.19 Personal history of other diseases of the digestive system; Z79.4 Long term (current) use of insulin; Z79.899 Other long term (current) drug therapy; Z91.89 Other specified personal risk factors, not elsewhere classified; Z88.8 Allergy status to other drugs, medicaments and biological substances
CPT/HCPCS: 74177; 80047; 80076; 81001; 82550; 82553; 83690; 84484; 85025; 85049; 85055; 85610; 85730; 86850; 86900; 86901; 87088; 87186; 99284; J1200; J2930; Q9967

== ENCOUNTER → 2021-07-25 | Outpatient (CLI) | payer MEDICARE, BC, OTHER ==
[~2021-07-25] MED LIST changes: +D31000TA2 PO; +MACR100C43 PO; +TUMS500C PO
== END ==
LOC: M LABSMTC 10:51
PROVIDERS: ATTEND Anesthesiology
DX: Z01.812 Encounter for preprocedural laboratory examination (principal); Z20.822 Contact with and (suspected) exposure to COVID-19

== ENCOUNTER 2021-07-29 06:45 | Day surgery (SDC) | payer MEDICARE, BC, OTHER ==
[~2021-07-29] VITALS: Ht 165.1 cm; Wt 64.4 kg
[~2021-07-29 06:45] MED LIST changes: +NS 1,000 ML IV ONE
[2021-07-29] MEDS ORDERED: propofoL 200 MG/20 ML VIAL As Ordered ONE (07:21)
[2021-07-29] MEDS ORDERED: LIDOCAINE 2% 100MG/5ML SDV (FOR ANES.) As Ordered ONE (07:21)
--- NOTE | 2021-07-29 08:16 | ROOR ---
Patient Name: Faustina Lutz Procedure Date: 07/29/2021 7:29 AM Date of : 1935 Age: 85 Room: [facility] Gender: Female Note Status: Finalized Procedure: Colonoscopy Indications: Abdominal pain in the right lower quadrant, Abnormal CT of the GI tract, Recent CT of abdomen/pelvis showed thickening/mass of cecum/ascending colon Providers: Dean Pratt MD Referring MD: Miranda Latif NP Requesting Provider: Medicines: Monitored Anesthesia Care Complications: No immediate complications. Procedure: Pre-Anesthesia Assessment: - Prior to the procedure, a History and Physical was performed, and patient medications and allergies were reviewed. The patient is competent. The risks and benefits of the procedure and the sedation options and risks were discussed with the patient. All questions were answered and informed consent was obtained. Patient identification and proposed procedure were verified by the physician, the nurse and the motor vehicle technician in the procedure room. Mental Status Examination: alert and oriented. Prophylactic Antibiotics: The patient does not require prophylactic antibiotics. Prior Anticoagulants: The patient has taken no previous anticoagulant or antiplatelet agents. ASA Grade Assessment: III - A patient with severe systemic disease. After reviewing the risks and benefits, the patient was deemed in satisfactory condition to undergo the procedure. The anesthesia plan was to use monitored anesthesia care (MAC). Immediately prior to administration of medications, the patient was re-assessed for adequacy to receive sedatives. The heart rate, respiratory rate, oxygen saturations, blood pressure, adequacy of pulmonary ventilation, and response to care were monitored throughout the procedure. The physical status of the patient was re-assessed after the procedure. The Colonoscope was introduced through the anus and advanced to the ascending colon to examine a mass. This was the intended extent. The colonoscopy was performed without difficulty. The patient tolerated the procedure well. The quality of the bowel preparation was good. Findings: The perianal and digital rectal examinations were normal. Many medium-mouthed diverticula were found in the sigmoid colon. There was evidence of a prior spot marking with scarring at 10 cm from the anal verge. This was characterized by healthy appearing mucosa. This was traversed. A fungating, polypoid and ulcerated partially obstructing large mass was found in the mid ascending colon. The mass was partially circumferential (involving two-thirds of the lumen circumference). No bleeding was present. Biopsies were taken with a cold forceps for histology. Area was successfully injected with 2 mL Spot (carbon black) for tattooing. Impression: - Diverticulosis in the sigmoid colon. - Spot marking with scarring at 10 cm from the anal verge. characterized by healthy appearing mucosa. 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 Biopsied. Recommendation: - Discharge patient to home. - Resume previous diet. - Continue present medications. - Await pathology results. - Return to my office in 10 days. Procedure Code(s): --- Professional --- 40253, 52, Colonoscopy, flexible; with biopsy, single or multiple Diagnosis Code(s): --- Professional --- Z98.0, Intestinal bypass and anastomosis status C18.2, Malignant neoplasm of ascending colon K56.690, Other partial intestinal obstruction R10.31, Right lower quadrant pain K57.30, Diverticulosis of large intestine without perforation or abscess without bleeding R93.3, Abnormal findings on diagnostic imaging of other parts of digestive tract CPT copyright 2019 [employer]. All rights reserved. The codes documented in this report are preliminary and upon rounding machine operator review may be revised to meet current compliance requirements. Dean Pratt MD Dean Pratt MD 07/29/2021 8:15:25 AM Electronically signed by Dean Pratt MD Number of Addenda: 0 Note Initiated On: 07/29/2021 7:29 AM Estimated Blood Loss: Estimated blood loss was minimal.
[2021-07-29 08:25] VITALS: BP 138/63
== END 2021-07-29 08:34 | disposition home or self-care (01) ==
LOC: M OPP 06:45
PROVIDERS: ATTEND Surgery
DX: C18.2 Malignant neoplasm of ascending colon (principal); R10.31 Right lower quadrant pain; K57.30 Diverticulosis of large intestine without perforation or abscess without bleeding; Z98.0 Intestinal bypass and anastomosis status; K56.690 Other partial intestinal obstruction; R93.3 Abnormal findings on diagnostic imaging of other parts of digestive tract; I10 Essential (primary) hypertension; E78.5 Hyperlipidemia, unspecified; E11.9 Type 2 diabetes mellitus without complications; I48.91 Unspecified atrial fibrillation; D69.6 Thrombocytopenia, unspecified; Z86.73 Personal history of transient ischemic attack (TIA), and cerebral infarction without residual deficits; Z95.0 Presence of cardiac pacemaker; Z88.6 Allergy status to analgesic agent; Z88.8 Allergy status to other drugs, medicaments and biological substances; Z79.899 Other long term (current) drug therapy

== ENCOUNTER → 2021-08-20 | Outpatient (CLI) | payer MEDICARE, BC, OTHER ==
[~2021-08-20] MED LIST changes: -NS 1,000 ML IV ONE
== END ==
LOC: M LABSMTC 11:02
PROVIDERS: ATTEND Anesthesiology
DX: Z01.812 Encounter for preprocedural laboratory examination (principal); Z20.822 Contact with and (suspected) exposure to COVID-19

== ENCOUNTER → 2021-08-22 | Outpatient (CLI) | payer MEDICARE, BC, OTHER ==
[~2021-08-22] MED LIST changes: +CIPR250T3 PO; +FLUC10TA PO; +FURO20TA2 PO; +METR-265 PO
[2021-08-22 17:13] LABS: HEMATOCRIT 35.7 % (36.0-47.0); HEMOGLOBIN 11.5 g/dl (12.0-15.5); MEAN CORPUSCULAR HEMOGLOBIN 31.1 pg (27.0-33.0); MEAN CORPUSCULAR HGB CONC 32.2 g/dl (32.0-36.5); MEAN CORPUSCULAR VOLUME 96.5 fl (80.0-96.0); PLATELET COUNT, AUTOMATED 116 10^3/uL (150-450); WHITE BLOOD COUNT 11.2 10^3/uL (4.0-10.0)
[2021-08-22 18:54] LABS: BLOOD UREA NITROGEN 17 MG/DL (7-18); CALCIUM LEVEL 8.5 MG/DL (8.8-10.2); CARBON DIOXIDE LEVEL 27 MEQ/L (21-32); CHLORIDE LEVEL 102 MEQ/L (98-107); CREATININE FOR GFR 0.54 MG/DL (0.55-1.30); GLOMERULAR FILTRATION RATE > 60.0 (>32); GLUCOSE, FASTING 215 MG/DL (70-100); POTASSIUM SERUM 4.2 MEQ/L (3.5-5.1); SODIUM LEVEL 137 MEQ/L (136-145)
[2021-08-22 20:24] LABS: HEMOGLOBIN A1c 7.1 %
== END ==
LOC: M LAB 16:14
PROVIDERS: ATTEND Family Medicine
DX: E11.51 Type 2 diabetes mellitus with diabetic peripheral angiopathy without gangrene (principal); I10 Essential (primary) hypertension; D50.9 Iron deficiency anemia, unspecified
CPT/HCPCS: 36415; 80048; 83036; 85027; G0463

== ENCOUNTER 2021-08-25 06:13 | Inpatient (IN) | payer MEDICARE, BC, OTHER ==
[~2021-08-25] VITALS: Ht 167.6 cm; Wt 64.9 kg
[~2021-08-25 06:13] MED LIST changes: +ALVIMOPAN 12 MG CAPSULE (ENTEREG) PO ONE; -CIPR250T3 PO; -FLUC10TA PO; -FURO20TA2 PO; +LOSA25TA13 PO; -LOSA25TA14 PO; +LOSA50TA28 PO; -LOSA50TA88 PO; +LR 1,000 ML IV ONE; -METR-265 PO; +cefoTEtan DISODIUM 2 GM in D5W MINI-BAG PLUS 50 ML IV ONE
[2021-08-25] MEDS ORDERED: BUPIVACAINE HCL 0.25% 30ML VIAL As Ordered ONE ×2 (07:10→14:57)
[2021-08-25] MEDS ORDERED: dexameTHASONE 4 MG/ML 1ML VIAL (J1100 PER 1MG) As Ordered ONE (07:35)
[2021-08-25] MEDS ORDERED: ROCURONIUM BROMIDE 50 MG/5 ML VIAL As Ordered ONE ×3 (07:35→13:34)
[2021-08-25] MEDS ORDERED: MIDAZOLAM INJ 2MG/2ML VIAL (J2250 PER 1MG) As Ordered ONE (07:35)
[2021-08-25] MEDS ORDERED: LIDOCAINE 2% 100MG/5ML SDV (FOR ANES.) As Ordered ONE (07:35)
[2021-08-25] MEDS ORDERED: fentaNYL 250 MCG/5 ML INJECTION As Ordered ONE (07:35)
[2021-08-25] MEDS ORDERED: METOCLOPRAMIDE INJ 10MG/2ML VIAL (J2765 PER 1) As Ordered ONE (07:35)
[2021-08-25] MEDS ORDERED: ONDANSETRON 4MG/2ML VIAL As Ordered ONE (07:35)
[2021-08-25] MEDS ORDERED: SUGAMMADEX SODIUM 500 MG/5 ML VIAL (BRIDION) As Ordered ONE (07:35)
[2021-08-25] MEDS ORDERED: propofoL 200 MG/20 ML VIAL As Ordered ONE (07:35)
[2021-08-25] MEDS ORDERED: ETOMIDATE INJ 20MG/10ML VIAL As Ordered ONE (07:43)
[2021-08-25] MEDS ORDERED: ACETAMINOPHEN 1000MG 100ML IV BTL (OFIRMEV) (J0131 PER 10MG) As Ordered ONE (07:55)
[2021-08-25] MEDS ORDERED: DESFLURANE 240 ML INHALANT As Ordered ONE ×2 (08:45→17:03)
[2021-08-25] MEDS ORDERED: SEVOFLURANE INHAL SOLN 250 ML BTL As Ordered ONE (08:47)
[2021-08-25] MEDS ORDERED: HYDROmorphone HCL 2MG/ML 1ML VIAL As Ordered ONE (10:19)
[2021-08-25] MEDS ORDERED: fentaNYL 100 MCG/2 ML INJECTION As Ordered ONE (14:26)
[2021-08-25] MEDS ORDERED: PHENYLephrine 500MCG 5ML (100MCG/ML) SYRINGE As Ordered ONE ×2 (14:38→15:00)
[2021-08-25] MEDS ORDERED: LACRILUBE (AKWA TEARS) OPHTH OINT 3.5 GM As Ordered ONE (14:50)
[2021-08-25] MEDS ORDERED: BUPIVACAINE HCL 0.5% 30 ML VIAL As Ordered ONE (14:57)
[2021-08-25] MEDS ORDERED: BUPIVACAINE LIPOSOME/PF 1.3% 20ML VIAL (13.3MG/ML)(EXPAREL)(C9290 PER1MG) As Ordered ONE (14:57)
[2021-08-25] MEDS ORDERED: HumaLOG INSULIN (NovoLOG) PER UNIT As Ordered ONE (15:28)
[2021-08-25] MEDS ORDERED: cefoTEtan INJ 2GM VIAL (S0074 PER 500MG) As Ordered ONE ×2 (15:39→16:09)
[2021-08-25] MEDS: LR 1,000 ML IV SCH (17:25)
[2021-08-25] MEDS ORDERED: MORPHINE 2 MG/ML 1ML VIAL (J2270) IV PRN (17:25)
[2021-08-25] MEDS ORDERED: METOCLOPRAMIDE INJ 10MG/2ML VIAL (J2765 PER 1) IV PRN (17:25)
[2021-08-25] MEDS ORDERED: KETOROLAC 30 MG/ML 1ML VIAL IV PRN (17:25)
[2021-08-25] MEDS ORDERED: ONDANSETRON 4MG/2ML VIAL IV PRN ×2 (17:25→19:50)
[2021-08-25] MEDS: HumaLOG INSULIN (NovoLOG) PER UNIT SC SCH (18:00)
[2021-08-25 18:40] VITALS: BP 139/64
[2021-08-25 19:10] VITALS: BP 137/63
[2021-08-25] MEDS ORDERED: fentaNYL 100 MCG/2 ML INJECTION IV PRN (19:50)
[2021-08-25] MEDS ORDERED: HYDROMORPHONE HCL 0.5 MG/ 0.5 ML SYRINGE (J1170 PER 1) IV PRN (19:50)
[2021-08-25] MEDS ORDERED: LR 1,000 ML IV SCH (19:50)
[2021-08-25] MEDS ORDERED: oxyCODONE 5MG TAB PO PRN (19:50)
[2021-08-25] MEDS: PIPERACILLIN/TAZOBACTAM SOD 3.375 GM in D5W MINI-BAG PLUS 50 ML IV SCH (20:34)
[2021-08-25 20:37] VITALS: BP 137/66
[2021-08-26] MEDS: PIPERACILLIN/TAZOBACTAM SOD 3.375 GM in D5W MINI-BAG PLUS 50 ML IV SCH ×5 (00:01→23:53)
[2021-08-26] MEDS: HumaLOG INSULIN (NovoLOG) PER UNIT SC SCH ×5 (00:01→23:53)
[2021-08-26 06:30] VITALS: BP 134/56
[2021-08-26] MEDS: LR 1,000 ML IV SCH ×2 (06:33→13:17)
[2021-08-26 07:12] LABS: BASO % 0.1 % (0.0-1.0); HEMATOCRIT 30.6 % (36.0-47.0); HEMOGLOBIN 9.8 g/dl (12.0-15.5); LYMPH # 0.9 10^3/uL (1.5-5.0); LYMPH % 6.1 % (24.0-44.0); MEAN CORPUSCULAR HEMOGLOBIN 31.1 pg (27.0-33.0); MEAN CORPUSCULAR VOLUME 97.1 fl (80.0-96.0); MONO # 1.3 10^3/uL (0.0-0.8); MONO % 9.3 % (2.0-8.0); NEUTROPHILS # 11.7 10^3/uL (1.5-8.5); PLATELET COUNT, AUTOMATED 111 10^3/uL (150-450); RED BLOOD COUNT 3.15 10^6/uL (4.00-5.40); WHITE BLOOD COUNT 13.9 10^3/uL (4.0-10.0)
[2021-08-26 07:32] LABS: BLOOD UREA NITROGEN BF 15 MG/DL (NOT ESTABLISHED); CREATININE BF 0.6 MG/DL (NOT ESTABLISHED); SOURCE, BODY FLUID CREATININE PERITONEAL
[2021-08-26 07:47] LABS: ALT/SGPT 17 U/L (12-78); BILIRUBIN,TOTAL 0.7 MG/DL (0.2-1.0); BLOOD UREA NITROGEN 16 MG/DL (7-18); CALCIUM LEVEL 8.2 MG/DL (8.8-10.2); CARBON DIOXIDE LEVEL 27 MEQ/L (21-32); CHLORIDE LEVEL 107 MEQ/L (98-107); CREATININE FOR GFR 0.85 MG/DL (0.55-1.30); GLOMERULAR FILTRATION RATE > 60.0 (>32); GLUCOSE, FASTING 171 MG/DL (70-100); POTASSIUM SERUM 4.1 MEQ/L (3.5-5.1); SODIUM LEVEL 141 MEQ/L (136-145); TOTAL PROTEIN 5.1 GM/DL (6.4-8.2)
[2021-08-26] MEDS: ATORVASTATIN 10 MG TAB PO SCH (09:00)
[2021-08-26] MEDS: ENOXAPARIN 30MG/0.3ML SYRINGE (J1650 PER 10MG) SC SCH (09:38)
[2021-08-26 16:00] VITALS: BP 132/65
[2021-08-26 22:00] VITALS: BP 133/56
[2021-08-27 02:00] VITALS: BP 132/62
[2021-08-27 06:00] VITALS: BP 135/82
[2021-08-27] MEDS: HumaLOG INSULIN (NovoLOG) PER UNIT SC SCH ×4 (06:06→21:00)
[2021-08-27] MEDS: PIPERACILLIN/TAZOBACTAM SOD 3.375 GM in D5W MINI-BAG PLUS 50 ML IV SCH ×3 (06:06→17:31)
[2021-08-27 07:18] LABS: BLOOD UREA NITROGEN 19 MG/DL (7-18); CARBON DIOXIDE LEVEL 27 MEQ/L (21-32); CHLORIDE LEVEL 106 MEQ/L (98-107); CREATININE FOR GFR 0.57 MG/DL (0.55-1.30); GLOMERULAR FILTRATION RATE > 60.0 (>32); GLUCOSE, FASTING 199 MG/DL (70-100); POTASSIUM SERUM 3.7 MEQ/L (3.5-5.1); SODIUM LEVEL 139 MEQ/L (136-145)
[2021-08-27] MEDS: POTASSIUM CHLORIDE 10MEQ SR TABLET PO SCH ×2 (09:00→21:47)
[2021-08-27 10:00] VITALS: BP 134/80
[2021-08-27] MEDS: ENOXAPARIN 30MG/0.3ML SYRINGE (J1650 PER 10MG) SC SCH (10:12)
[2021-08-27] MEDS: ATORVASTATIN 10 MG TAB PO SCH (10:12)
[2021-08-27] MEDS ORDERED: NORCO, ANEXSIA 5/325MG TABLET (HYDROcodone/ACETAMINOPHEN) PO PRN (11:50)
[2021-08-27] MEDS: SERTRALINE HCL 50 MG TAB PO SCH (13:43)
[2021-08-27] MEDS: LOSARTAN 50MG TABLET PO SCH (13:44)
[2021-08-27 14:00] VITALS: BP 155/96
[2021-08-27 18:00] VITALS: BP 130/62
[2021-08-27] MEDS: LEVEMIR (INSULIN DETEMIR) 1 UNITS/0.01ML SC SCH (21:47)
[2021-08-27 22:00] VITALS: BP 129/61
[2021-08-28] MEDS: PIPERACILLIN/TAZOBACTAM SOD 3.375 GM in D5W MINI-BAG PLUS 50 ML IV SCH ×3 (00:52→12:07)
[2021-08-28 02:00] VITALS: BP 126/61
[2021-08-28 06:00] VITALS: BP 119/62
[2021-08-28] MEDS: ATORVASTATIN 10 MG TAB PO SCH (09:02)
[2021-08-28] MEDS: PANTOPRAZOLE 40MG TAB (PROTONIX) PO SCH (09:02)
[2021-08-28] MEDS: ENOXAPARIN 30MG/0.3ML SYRINGE (J1650 PER 10MG) SC SCH (09:02)
[2021-08-28] MEDS: POTASSIUM CHLORIDE 10MEQ SR TABLET PO SCH ×2 (09:02→21:05)
[2021-08-28] MEDS: SERTRALINE HCL 50 MG TAB PO SCH (09:02)
[2021-08-28] MEDS: HumaLOG INSULIN (NovoLOG) PER UNIT SC SCH ×4 (09:02→21:00)
[2021-08-28] MEDS: LOSARTAN 50MG TABLET PO SCH (09:03)
[2021-08-28 14:00] VITALS: BP 130/67
[2021-08-28] MEDS: LEVEMIR (INSULIN DETEMIR) 1 UNITS/0.01ML SC SCH (21:05)
[2021-08-28] MEDS ORDERED: RAMELTEON 8 MG TAB (ROZEREM) PO PRN (21:05)
[2021-08-28 22:00] VITALS: BP 130/60
[2021-08-29 06:00] VITALS: BP 134/61
[2021-08-29 08:06] LABS: BASO % 0.2 % (0.0-1.0); EOS # 0.2 10^3/uL (0.0-0.5); EOS % 0.9 % (0.0-3.0); HEMATOCRIT 37.6 % (36.0-47.0); HEMOGLOBIN 12.2 g/dl (12.0-15.5); LYMPH # 1.1 10^3/uL (1.5-5.0); LYMPH % 6.1 % (24.0-44.0); MEAN CORPUSCULAR HEMOGLOBIN 30.5 pg (27.0-33.0); MEAN CORPUSCULAR HGB CONC 32.4 g/dl (32.0-36.5); MONO % 11.4 % (2.0-8.0); NEUTROPHILS # 14.2 10^3/uL (1.5-8.5); NEUTROPHILS % 80.9 % (36.0-66.0); PLATELET COUNT, AUTOMATED 152 10^3/uL (150-450); WHITE BLOOD COUNT 17.6 10^3/uL (4.0-10.0)
[2021-08-29 08:40] LABS: ALBUMIN 1.9 GM/DL (3.2-5.2); ALT/SGPT 12 U/L (12-78); BILIRUBIN,TOTAL 1.2 MG/DL (0.2-1.0); BLOOD UREA NITROGEN 20 MG/DL (7-18); CALCIUM LEVEL 8.8 MG/DL (8.8-10.2); CARBON DIOXIDE LEVEL 29 MEQ/L (21-32); CHLORIDE LEVEL 100 MEQ/L (98-107); CREATININE FOR GFR 0.56 MG/DL (0.55-1.30); GLOMERULAR FILTRATION RATE > 60.0 (>32); GLUCOSE, FASTING 190 MG/DL (70-100); POTASSIUM SERUM 4.6 MEQ/L (3.5-5.1); SODIUM LEVEL 133 MEQ/L (136-145); TOTAL PROTEIN 5.7 GM/DL (6.4-8.2)
[2021-08-29] MEDS: HumaLOG INSULIN (NovoLOG) PER UNIT SC SCH ×3 (09:04→17:03)
[2021-08-29] MEDS: PANTOPRAZOLE 40MG TAB (PROTONIX) PO SCH (09:04)
[2021-08-29] MEDS: ENOXAPARIN 30MG/0.3ML SYRINGE (J1650 PER 10MG) SC SCH (09:05)
[2021-08-29] MEDS: LOSARTAN 50MG TABLET PO SCH (09:05)
[2021-08-29] MEDS: ATORVASTATIN 10 MG TAB PO SCH (09:06)
[2021-08-29] MEDS: SERTRALINE HCL 50 MG TAB PO SCH (09:06)
[2021-08-29] MEDS: POTASSIUM CHLORIDE 10MEQ SR TABLET PO SCH (09:06)
[2021-08-29 14:00] VITALS: BP 152/71
[2021-08-29] MEDS: LEVEMIR (INSULIN DETEMIR) 1 UNITS/0.01ML SC SCH (20:09)
[2021-08-29] MEDS ORDERED: diphenhydrAMINE 50MG CAP PO ONE (21:00)
[2021-08-29] MEDS ORDERED: ACETAMINOPHEN 500 MG TAB PO ONE (21:00)
[2021-08-29 22:00] VITALS: BP 150/65
[2021-08-30 06:00] VITALS: BP 154/66
[2021-08-30 06:23] LABS: BASO % 0.1 % (0.0-1.0); EOS # 0.2 10^3/uL (0.0-0.5); EOS % 1.3 % (0.0-3.0); HEMATOCRIT 35.8 % (36.0-47.0); HEMOGLOBIN 11.8 g/dl (12.0-15.5); LYMPH # 1.3 10^3/uL (1.5-5.0); MEAN CORPUSCULAR HEMOGLOBIN 30.6 pg (27.0-33.0); MEAN CORPUSCULAR VOLUME 92.7 fl (80.0-96.0); MONO # 2.4 10^3/uL (0.0-0.8); MONO % 13.1 % (2.0-8.0); NEUTROPHILS # 14.5 10^3/uL (1.5-8.5); NEUTROPHILS % 77.6 % (36.0-66.0); PLATELET COUNT, AUTOMATED 159 10^3/uL (150-450); RED BLOOD COUNT 3.86 10^6/uL (4.00-5.40); WHITE BLOOD COUNT 18.7 10^3/uL (4.0-10.0)
[2021-08-30 06:41] LABS: BLOOD UREA NITROGEN 22 MG/DL (7-18); CARBON DIOXIDE LEVEL 27 MEQ/L (21-32); CHLORIDE LEVEL 100 MEQ/L (98-107); GLOMERULAR FILTRATION RATE > 60.0 (>32); GLUCOSE, FASTING 133 MG/DL (70-100); POTASSIUM SERUM 4.5 MEQ/L (3.5-5.1); SODIUM LEVEL 134 MEQ/L (136-145)
[2021-08-30] MEDS: PANTOPRAZOLE 40MG TAB (PROTONIX) PO SCH (08:08)
[2021-08-30] MEDS: SERTRALINE HCL 50 MG TAB PO SCH (08:08)
[2021-08-30] MEDS: ATORVASTATIN 10 MG TAB PO SCH (08:08)
[2021-08-30] MEDS: LOSARTAN 50MG TABLET PO SCH (08:08)
[2021-08-30] MEDS: ENOXAPARIN 30MG/0.3ML SYRINGE (J1650 PER 10MG) SC SCH (08:14)
[2021-08-30 10:00] VITALS: BP 153/68
[2021-08-30 10:09] VITALS: BP 153/68
[2021-08-30 11:50] VITALS: BP 130/66
[2021-08-30 14:00] VITALS: BP 114/60
[2021-08-30] MEDS: ACETAMINOPHEN TAB 650MG DOSE (2X325MG) PO PRN (21:03)
[2021-08-30] MEDS: LEVEMIR (INSULIN DETEMIR) 1 UNITS/0.01ML SC SCH (21:03)
[2021-08-30 22:00] VITALS: BP 130/68
[2021-08-31 02:00] VITALS: BP 142/57
[2021-08-31 06:00] VITALS: BP 135/57
[2021-08-31 06:47] LABS: BASO % 0.1 % (0.0-1.0); EOS # 0.2 10^3/uL (0.0-0.5); EOS % 0.8 % (0.0-3.0); HEMATOCRIT 32.2 % (36.0-47.0); HEMOGLOBIN 10.7 g/dl (12.0-15.5); LYMPH # 1.2 10^3/uL (1.5-5.0); LYMPH % 5.9 % (24.0-44.0); MEAN CORPUSCULAR HEMOGLOBIN 30.7 pg (27.0-33.0); MEAN CORPUSCULAR HGB CONC 33.2 g/dl (32.0-36.5); MEAN CORPUSCULAR VOLUME 92.5 fl (80.0-96.0); MONO # 2.5 10^3/uL (0.0-0.8); MONO % 11.7 % (2.0-8.0); NEUTROPHILS # 16.9 10^3/uL (1.5-8.5); NEUTROPHILS % 80.8 % (36.0-66.0); PLATELET COUNT, AUTOMATED 144 10^3/uL (150-450); RED BLOOD COUNT 3.48 10^6/uL (4.00-5.40); WHITE BLOOD COUNT 20.9 10^3/uL (4.0-10.0)
[2021-08-31 07:16] LABS: BLOOD UREA NITROGEN 20 MG/DL (7-18); CALCIUM LEVEL 8.9 MG/DL (8.8-10.2); CARBON DIOXIDE LEVEL 27 MEQ/L (21-32); CHLORIDE LEVEL 101 MEQ/L (98-107); CREATININE FOR GFR 0.56 MG/DL (0.55-1.30); GLOMERULAR FILTRATION RATE > 60.0 (>32); GLUCOSE, FASTING 57 MG/DL (70-100); POTASSIUM SERUM 4.5 MEQ/L (3.5-5.1); SODIUM LEVEL 134 MEQ/L (136-145)
[2021-08-31] MEDS: ENOXAPARIN 30MG/0.3ML SYRINGE (J1650 PER 10MG) SC SCH (07:52)
[2021-08-31] MEDS: PANTOPRAZOLE 40MG TAB (PROTONIX) PO SCH (11:46)
[2021-08-31] MEDS: ATORVASTATIN 10 MG TAB PO SCH (11:46)
[2021-08-31] MEDS: LOSARTAN 50MG TABLET PO SCH (11:47)
[2021-08-31] MEDS: SERTRALINE HCL 50 MG TAB PO SCH (11:47)
[2021-08-31 14:00] VITALS: BP 114/70
[2021-08-31] MEDS ORDERED: FLUCONAZOLE 400 MG in IV 1 EA IV ONE (15:00)
[2021-08-31] MEDS ORDERED: CIPROFLOXACIN 400 MG in IV 1 EA IV SCH (17:00)
[2021-08-31] MEDS: metroNIDAZOLE 500 MG in IV 1 EA IV SCH (19:27)
[2021-08-31] MEDS: CIPROFLOXACIN 400 MG in IV 1 EA IV SCH (20:37)
[2021-08-31] MEDS: LEVEMIR (INSULIN DETEMIR) 1 UNITS/0.01ML SC SCH (21:16)
[2021-08-31] MEDS: ACETAMINOPHEN TAB 650MG DOSE (2X325MG) PO PRN (21:53)
[2021-08-31 22:00] VITALS: BP 133/56
[2021-09-01] MEDS: metroNIDAZOLE 500 MG in IV 1 EA IV SCH ×3 (02:56→18:54)
[2021-09-01 06:00] VITALS: BP 121/55
[2021-09-01 07:24] LABS: BASO % 0.1 % (0.0-1.0); EOS # 0.2 10^3/uL (0.0-0.5); EOS % 1.4 % (0.0-3.0); HEMATOCRIT 30.4 % (36.0-47.0); HEMOGLOBIN 9.8 g/dl (12.0-15.5); LYMPH # 0.9 10^3/uL (1.5-5.0); LYMPH % 7.8 % (24.0-44.0); MEAN CORPUSCULAR HEMOGLOBIN 30.8 pg (27.0-33.0); MEAN CORPUSCULAR HGB CONC 32.2 g/dl (32.0-36.5); MEAN CORPUSCULAR VOLUME 95.6 fl (80.0-96.0); MONO # 1.5 10^3/uL (0.0-0.8); MONO % 12.9 % (2.0-8.0); NEUTROPHILS # 8.7 10^3/uL (1.5-8.5); NEUTROPHILS % 76.8 % (36.0-66.0); PLATELET COUNT, AUTOMATED 103 10^3/uL (150-450); RED BLOOD COUNT 3.18 10^6/uL (4.00-5.40); WHITE BLOOD COUNT 11.3 10^3/uL (4.0-10.0)
[2021-09-01] MEDS: ENOXAPARIN 30MG/0.3ML SYRINGE (J1650 PER 10MG) SC SCH (07:44)
[2021-09-01] MEDS: PANTOPRAZOLE 40MG TAB (PROTONIX) PO SCH (08:46)
[2021-09-01] MEDS: CIPROFLOXACIN 400 MG in IV 1 EA IV SCH ×2 (08:46→20:28)
[2021-09-01] MEDS: SERTRALINE HCL 50 MG TAB PO SCH (08:47)
[2021-09-01] MEDS: ATORVASTATIN 10 MG TAB PO SCH (08:47)
[2021-09-01] MEDS: LOSARTAN 50MG TABLET PO SCH (08:47)
[2021-09-01 14:00] VITALS: BP 122/55
[2021-09-01] MEDS: FLUCONAZOLE 200 MG in IV 1 EA IV SCH (17:27)
[2021-09-01] MEDS: LEVEMIR (INSULIN DETEMIR) 1 UNITS/0.01ML SC SCH (20:29)
[2021-09-01] MEDS: ACETAMINOPHEN TAB 650MG DOSE (2X325MG) PO PRN (20:29)
[2021-09-01 22:00] VITALS: BP 130/58
[2021-09-02] MEDS: metroNIDAZOLE 500 MG in IV 1 EA IV SCH ×3 (03:08→18:11)
[2021-09-02 06:00] VITALS: BP 127/58
[2021-09-02 06:16] LABS: BASO % 0.1 % (0.0-1.0); EOS # 0.1 10^3/uL (0.0-0.5); EOS % 1.3 % (0.0-3.0); HEMATOCRIT 29.2 % (36.0-47.0); HEMOGLOBIN 9.5 g/dl (12.0-15.5); LYMPH # 0.9 10^3/uL (1.5-5.0); LYMPH % 9.9 % (24.0-44.0); MEAN CORPUSCULAR HEMOGLOBIN 30.9 pg (27.0-33.0); MEAN CORPUSCULAR HGB CONC 32.5 g/dl (32.0-36.5); MEAN CORPUSCULAR VOLUME 95.1 fl (80.0-96.0); MONO # 1.2 10^3/uL (0.0-0.8); MONO % 13.3 % (2.0-8.0); NEUTROPHILS # 6.5 10^3/uL (1.5-8.5); PLATELET COUNT, AUTOMATED 115 10^3/uL (150-450); RED BLOOD COUNT 3.07 10^6/uL (4.00-5.40); WHITE BLOOD COUNT 8.8 10^3/uL (4.0-10.0)
[2021-09-02] MEDS: ATORVASTATIN 10 MG TAB PO SCH (07:44)
[2021-09-02] MEDS: SERTRALINE HCL 50 MG TAB PO SCH (07:44)
[2021-09-02] MEDS: PANTOPRAZOLE 40MG TAB (PROTONIX) PO SCH (07:44)
[2021-09-02] MEDS: LOSARTAN 50MG TABLET PO SCH (07:44)
[2021-09-02] MEDS: CIPROFLOXACIN 400 MG in IV 1 EA IV SCH ×2 (07:44→20:27)
[2021-09-02] MEDS: ENOXAPARIN 30MG/0.3ML SYRINGE (J1650 PER 10MG) SC SCH (07:46)
[2021-09-02 14:00] VITALS: BP 133/58
[2021-09-02] MEDS: FLUCONAZOLE 200 MG in IV 1 EA IV SCH (17:22)
[2021-09-02 20:00] VITALS: BP 135/58
[2021-09-02] MEDS ORDERED: LEVEMIR (INSULIN DETEMIR) 1 UNITS/0.01ML SC SCH (21:00)
[2021-09-03] VITALS: BP 145/67
[2021-09-03] MEDS: metroNIDAZOLE 500 MG in IV 1 EA IV SCH (03:51)
[2021-09-03] MEDS: ACETAMINOPHEN TAB 650MG DOSE (2X325MG) PO PRN (03:51)
[2021-09-03 06:00] VITALS: BP 132/58
[2021-09-03 07:03] LABS: BASO % 0.3 % (0.0-1.0); EOS # 0.1 10^3/uL (0.0-0.5); EOS % 0.9 % (0.0-3.0); HEMATOCRIT 31.1 % (36.0-47.0); HEMOGLOBIN 10.3 g/dl (12.0-15.5); LYMPH % 9.3 % (24.0-44.0); MEAN CORPUSCULAR HEMOGLOBIN 31.3 pg (27.0-33.0); MEAN CORPUSCULAR HGB CONC 33.1 g/dl (32.0-36.5); MEAN CORPUSCULAR VOLUME 94.5 fl (80.0-96.0); MONO # 1.4 10^3/uL (0.0-0.8); MONO % 13.2 % (2.0-8.0); NEUTROPHILS # 7.9 10^3/uL (1.5-8.5); NEUTROPHILS % 74.2 % (36.0-66.0); PLATELET COUNT, AUTOMATED 132 10^3/uL (150-450); RED BLOOD COUNT 3.29 10^6/uL (4.00-5.40); WHITE BLOOD COUNT 10.6 10^3/uL (4.0-10.0)
[2021-09-03] MEDS: ENOXAPARIN 30MG/0.3ML SYRINGE (J1650 PER 10MG) SC SCH (08:39)
[2021-09-03 08:40] VITALS: BP 132/58
[2021-09-03] MEDS: ATORVASTATIN 10 MG TAB PO SCH (08:40)
[2021-09-03] MEDS: CIPROFLOXACIN 400 MG in IV 1 EA IV SCH (08:40)
[2021-09-03] MEDS: LOSARTAN 50MG TABLET PO SCH (08:40)
[2021-09-03] MEDS: PANTOPRAZOLE 40MG TAB (PROTONIX) PO SCH (08:40)
[2021-09-03] MEDS: SERTRALINE HCL 50 MG TAB PO SCH (08:40)
[2021-09-03] MEDS ORDERED: CIPR250T3 PO (08:41)
[2021-09-03] MEDS ORDERED: FLUC10TA PO (08:41)
[2021-09-03] MEDS ORDERED: METR-265 PO (08:41)
[2021-09-20] MEDS ORDERED: FURO20TA2 PO (12:07)
[2021-10-14] MEDS ORDERED: PERC5TAB12 PO (08:45)
[2021-10-14] MEDS ORDERED: ONDA-83 PO (16:24)
[2021-10-18] MEDS ORDERED: LEVE1INJ5 SC (11:20)
== END 2021-09-03 11:01 | disposition home or self-care (01) | DRG 330 ==
LOC: M OR 06:13 → M MS5PR 18:25
PROVIDERS: ADMIT Surgery; ATTEND Surgery
PROC: 0DNU4ZZ Release Omentum, Percutaneous Endoscopic Approach (ICD-10-PCS; 2021-08-25)
PROC: 0DBF0ZZ Excision of Right Large Intestine, Open Approach (ICD-10-PCS; 2021-08-25)
PROC: 8E0W4CZ Robotic Assisted Procedure of Trunk Region, Percutaneous Endoscopic Approach (ICD-10-PCS; 2021-08-25)
PROC: 0DBL4ZZ Excision of Transverse Colon, Percutaneous Endoscopic Approach (ICD-10-PCS; principal; 2021-08-25 07:30)
PROC: 30233J1 Transfusion of Nonautologous Serum Albumin into Peripheral Vein, Percutaneous Approach (ICD-10-PCS; 2021-08-26)
DX: C18.2 Malignant neoplasm of ascending colon (principal); R18.8 Other ascites; C77.2 Secondary and unspecified malignant neoplasm of intra-abdominal lymph nodes; C78.6 Secondary malignant neoplasm of retroperitoneum and peritoneum; E11.9 Type 2 diabetes mellitus without complications; I10 Essential (primary) hypertension; E78.00 Pure hypercholesterolemia, unspecified; I48.91 Unspecified atrial fibrillation; D69.6 Thrombocytopenia, unspecified; Z66 Do not resuscitate; Z86.73 Personal history of transient ischemic attack (TIA), and cerebral infarction without residual deficits; Z87.891 Personal history of nicotine dependence; Z79.4 Long term (current) use of insulin; Z79.899 Other long term (current) drug therapy; K74.60 Unspecified cirrhosis of liver; Z53.31 Laparoscopic surgical procedure converted to open procedure

== ENCOUNTER → 2021-10-12 | Outpatient (CLI) | payer MEDICARE, BC, OTHER ==
[~2021-10-12] MED LIST changes: -ALVIMOPAN 12 MG CAPSULE (ENTEREG) PO ONE; +CIPR250T3 PO; +FLUC10TA PO; +FURO20TA2 PO; -LOSA25TA13 PO; +LOSA25TA14 PO; -LOSA50TA28 PO; +LOSA50TA88 PO; -LR 1,000 ML IV ONE; +METR-265 PO; +ONDA-83 PO; +PERC5TAB12 PO; +READI-CAT 2 As Ordered ONE; -cefoTEtan DISODIUM 2 GM in D5W MINI-BAG PLUS 50 ML IV ONE
--- NOTE | 2021-10-13 08:14 | REP ---
INDICATION: COLON CA, LT ABD PAIN- ORAL CONTRAST ONLY COMPARISON: 08/31/2021, 05/23/2019 TECHNIQUE: Axial noncontrast images (oral contrast administered prior to imaging) from the lung bases to the pubic symphysis with coronal and sagittal reformations. This CT examination was performed using the following dose reduction techniques: Automated exposure control, adjustment of mA and/or kv according to the patient's size, and use of iterative reconstruction technique. FINDINGS: Large right pleural effusion along with right lower lobe atelectasis represents a new finding. Marked ascites and mild to moderate subcutaneous edema is appreciated along with somewhat shrunken nodular appearance to the liver suggestive of underlying cirrhosis/hepatocellular disease. Hepatic and splenic calcifications are consistent with prior granulomatous disease as well. Pancreas and bilateral adrenal glands appear normal/stable by noncontrast evaluation. Kidneys demonstrate stable changes including hypodensities suggestive of cysts and 3 mm nonobstructing right renal calculus. No associated hydronephrosis or obvious acute perinephric stranding. The patient is status post right hemicolectomy. Enteric system is incompletely evaluated due to technique. However there is no obvious obstruction. Scattered elements of colonic mucosal thickening involving the presumed residual transverse colon is suggested. Descending and sigmoid diverticulosis noted without obvious acute diverticulitis. There is no free air to suggest perforation. Enterocolonic anastomosis in the right lower abdomen appears relatively stable/intact. Pelvis demonstrates normal bladder and prior hysterectomy. Marked ascites as noted above along with subcutaneous edema and ill-defined stranding throughout the mesentery likely related to cirrhosis although malignant ascites and underlying mesenteric metastases cannot definitively be excluded based on current examination. No obvious adenopathy. No focal inflammatory stranding. Atherosclerotic changes to the aorta and vasculature noted without aneurysm. Musculoskeletal structures demonstrate age-related osteopenia and degenerative changes without obvious acute pathologic process. IMPRESSION: 1. New large right pleural effusion and right lower lobe atelectasis/consolidation. 2. Marked and significantly increased ascites throughout the abdomen and pelvis along with mesenteric stranding and subcutaneous edema with scattered subcutaneous stranding. These findings may be related to underlying cirrhosis although malignant ascites and changes cannot be excluded. 3. Further nonacute chronic changes as noted above appear relatively stable. <Electronically signed by Giorgi Bond > 10/13/21 [id number]
--- NOTE | 2021-10-13 16:47 | MEDONCTEEN ---
Date/Time of Encounter Date of Encounter: Oct 13, 2021 Time of Encounter: 16:[address] abdomen/pelvis 10/12/2021 showed ascites and pleural effusion. Results were discussed with the patient's daughter Airam. I recommended admission to hospital for failure to thrive and pain management. However I heard back from Airam that the patient herself did not want to get admitted to hospital. She has agreed to a paracentesis and thoracentesis as an outpatient. The patient's daughter Airam also told me that Faustina is currently on pain medications as prescribed by Ofelia Kinney and requesting additional prescription of pain medication. The patient is also considering hospice but will be requesting PCP Ofelia to make this referral in the immediate future. ELAYNE PARKER MD FACP Oct 13, 2021 16:47
== END ==
LOC: M RAD 14:45
PROVIDERS: ATTEND Internal Medicine Medical Oncology
DX: J90 Pleural effusion, not elsewhere classified (principal); J98.11 Atelectasis; C18.9 Malignant neoplasm of colon, unspecified

== ENCOUNTER → 2021-10-18 | Outpatient (CLI) | payer MEDICARE, BC, OTHER ==
[~2021-10-18] MED LIST changes: +LEVE1INJ5 SC; +LIDOCAINE 1% MDV 20ML VIAL As Ordered ONE; +LOSA25TA13 PO; -LOSA25TA14 PO; +LOSA50TA28 PO; -LOSA50TA88 PO; -READI-CAT 2 As Ordered ONE
[2021-10-18 12:00] VITALS: BP 144/61
== END ==
LOC: M IRPRO 10:38
PROVIDERS: ATTEND Internal Medicine Medical Oncology
DX: R18.8 Other ascites (principal); C18.9 Malignant neoplasm of colon, unspecified; J90 Pleural effusion, not elsewhere classified